=== PATIENT | male | born 1935 | race Caucasian/White ===

== ENCOUNTER 2016-12-04 07:44 | Emergency (ER) | payer MEDICARE, OTHER ==
[2016-12-04] MEDS ORDERED: ARZOL Silver Nitrate Applicator TP ONE ×2 (08:15→08:16)
--- NOTE | 2016-12-04 08:21 | ERPHSYRPT ---
- History of Present Illness Time Seen by Provider: 12/04/16 08:08 Source: patient Exam Limitations: no limitations Physician History: The patient is an 81-year-old male with his complains of bleeding from a surgical wound that was performed yesterday to remove skin from the back of his right ear. He's had numerous episodes of skin cancer and yesterday the skin was removed for biopsy for possible skin cancer. The patient is on Coumadin for DVTs and woke up this morning with blood all over his pillows. His last INR check was 1 month ago. His past medical history significant for skin cancer , diabetes, DVT, and high cholesterol. Timing/Duration: today Quality: other (bleeding) Severity: mild Location: scalp Possible Causes: other (skin biopsy) Associated Symptoms: denies symptoms Allergies/Adverse Reactions: No Known Drug Allergies Allergy (Verified 12/04/16 07:54) Home Medications: Metformin HCl 1000 mg [Glucophage 1000 MG] 1,000 mg PO BID 01/28/13 [History] Omeprazole [Prilosec] 40 mg PO DAILY PRN 11/16/13 [History] Simvastatin [Zocor] 10 mg PO HS 11/16/13 [History] Quinapril HCl 20 mg PO UD 02/08/16 [History] Quinine Sulfate 300 mg PO DAILY 02/08/16 [History] Warfarin Sodium 5 mg [Coumadin 5 MG] 6 mg PO DAILY 12/04/16 [History] Hx Tetanus, Diphtheria Vaccination/Date Given: No (PT UNSURE) Hx Influenza Vaccination/Date Given: Yes (2012) Hx Pneumococcal Vaccination/Date Given: Yes (2012) - Review of Systems Constitutional: No Fever, No Chills Eyes: No Symptoms Ears, Nose, & Throat: No Symptoms Respiratory: No Cough, No Dyspnea Cardiac: No Chest Pain, No Edema, No Syncope Abdominal/Gastrointestinal: No Abdominal Pain, No Nausea, No Vomiting, No Diarrhea Genitourinary Symptoms: No Dysuria Musculoskeletal: No Back Pain, No Neck Pain Skin: Skin Lesions Neurological: No Dizziness, No Focal Weakness, No Sensory Changes Psychological: No Symptoms Endocrine: No Symptoms Hematologic/Lymphatic: No Symptoms Immunological/Allergic: No Symptoms All Other Systems: Reviewed and Negative - Past Medical History Pertinent Past Medical History: Yes Neurological History: No Pertinent History ENT History: Cataracts Cardiac History: Deep Vein Thrombosis Respiratory History: No Pertinent History Endocrine Medical History: Diabetes Type II Musculoskeletal History: Other GI Medical History: Hernia, Ulcer History: Other Psycho-Social History: No Pertinent History Male Reproductive Disorders: Prostate Problems Other Medical History: Leg Cramps, enlarged prostate, blood clot in l leg and lung years ago, kidney stones - Past Surgical History Past Surgical History: Yes Neuro Surgical History: No Pertinent History Cardiac: CABG Respiratory: No Pertinent History Gastrointestinal: No Pertinent History Genitourinary: Other Musculoskeletal: Orthopedic Surgery Male Surgical History: No Pertinent History Other Surgical History: Removed kidney stones at the age of 23, ortho shoulder repair and numbness in right arm, turp 2012, - Social History Smoking Status: Former smoker Exposure to second hand smoke: No Drug Use: none Patient Lives Alone: No - Nursing Vital Signs Nursing Vital Signs: Initial Vital Signs Temperature 97.5 F Temperature Source Oral Pulse Rate 52 Respiratory Rate 18 Blood Pressure [Left Arm] 149/74 Pain Intensity 0 - Physical Exam General Appearance: no apparent distress, alert Eye Exam: PERRL/EOMI, eyes nml inspection Ears, Nose, Throat Exam: normal ENT inspection, pharynx normal, moist mucous membranes Neck Exam: normal inspection, non-tender, supple, full range of motion Respiratory Exam: normal breath sounds, lungs clear, No respiratory distress Cardiovascular Exam: regular rate/rhythm, normal heart sounds Gastrointestinal/Abdomen Exam: soft, mass, No tenderness Rectal Exam: not done Back Exam: normal inspection, normal range of motion, No CVA tenderness, No vertebral tenderness Extremity Exam: normal inspection, normal range of motion Neurologic Exam: alert, oriented x 3, cooperative, normal mood/affect, sensation nml, No motor deficits Skin Exam: other (skin scraping with mild hemorrhage) SpO2 Interpretation: normal Ordered Tests: Active Orders 24 hr Category Date Time Status PT INR [PROTIME WITH INR] Stat Lab 12/04/16 08:18 Completed Medication Summary Discontinued Medications Generic Name Dose Route Start Last Admin Trade Name Freq PRN Reason Stop Dose Admin Silver Nitrate 1 pkt 12/04/16 08:16 12/04/16 08:17 Arzol Silver Nitrate Applicator TP 12/04/16 08:17 1 pkt STAT ONE Administration Silver Nitrate Confirm 12/04/16 08:15 Arzol Silver Nitrate Applicator Administered 12/04/16 08:16 Dose 4 pkt TP .STK-MED ONE Lab/Rad Data: Laboratory Results 12/04/16 Range/Units 08:18 INR 2.85 (0.8-3.0) - Progress Progress: improved Progress Note: 12/04/16 08:25 There is a recent skin scraping behind his right ear that was actively bleeding slowly. 2 over nitrate sticks were used to stop the bleeding. The patient tolerated the procedure well. Counseled pt/family regarding: lab results, diagnosis - Departure Time of Disposition: 09:22 Departure Disposition: Home Clinical Impression: Hemorrhage of skin lesion Condition: Stable Critical Care Time: No Additional Instructions: The skin lesion behind your right ear was cauterized with silver nitrate to stop the bleeding. Before you go to bed tonight, carefully apply a Band-Aid over the lesion. If the bleeding recurs, do not hesitate to return to the ER for more cauterizing. Your INR was 2.85 so you are therapeutic with your Coumadin.
[2016-12-04 08:59] LABS: INR 2.85 (0.8-3.0)
[2016-12-04 09:36] VITALS: BP 123/64; PULSE 51; O2SAT 95
== END 2016-12-04 09:36 | disposition home or self-care (01) ==
LOC: ED 07:44
DX: L76.22 Postprocedural hemorrhage of skin and subcutaneous tissue following other procedure (principal); L98.8 Other specified disorders of the skin and subcutaneous tissue
CPT/HCPCS: 36415; 85610; 99283; A9270-GY

== ENCOUNTER 2017-02-08 18:40 | Emergency (ER) | payer MEDICARE, OTHER ==
--- NOTE | 2017-02-08 19:26 | ERPHSYRPT ---
- History of Present Illness Time Seen by Provider: 02/08/17 19:19 Source: patient, landscaping and groundskeeping laborer Patient Subjective Stated Complaint: pt c/o lumps/clots of blood in urine. pt states this has happened two days last week and pt seen this past and urine sample was given and a f/u appt with jim is schedule for wednesday. urine has been clear since last until about 30 minutes ago pt passed 3 lumps/clots. pt denies any pain & burning. Triage Nursing Assessment: pt is alert x 3. pt walked into the er. respirations even and unlabored, skin is pink warm and dry. Physician History: The patient is an 81-year-old male with his complaining of seeing blood and clots in his urine today. The same thing happened for 2 days last week. He saw Dr. Eastman last week and was scheduled to see him again this Wednesday. Until today his urine has been clear after the initial episode last week. He denies any burning or pain with urination. He denies dizziness or lightheadedness. He was not given any antibiotics recently. He does take Coumadin. His past medical history is significant for BP H, CABG, skin cancer, GERD, high cholesterol, and diabetes. Timing/Duration: today Activites at Onset: none Quality: other (blood in urine) Onset Location: unknown Pain Radiation: none Severity of Pain-Max: none Severity of Pain-Current: none Modifying Factors: Improves With: urinating Associated Symptoms: denies symptoms Prior abdominal problems: none Sexual intercourse history: non-contributory Allergies/Adverse Reactions: No Known Drug Allergies Allergy (Verified 12/04/16 07:54) Home Medications: Metformin HCl 1000 mg [Glucophage 1000 MG] 1,000 mg PO BID 01/28/13 [History] Omeprazole [Prilosec] 40 mg PO DAILY PRN 11/16/13 [History] Simvastatin [Zocor] 10 mg PO HS 11/16/13 [History] Quinapril HCl 20 mg PO UD 02/08/16 [History] Quinine Sulfate 300 mg PO DAILY 02/08/16 [History] Warfarin Sodium 5 mg [Coumadin 5 MG] 6 mg PO DAILY 12/04/16 [History] Hx Tetanus, Diphtheria Vaccination/Date Given: No Hx Influenza Vaccination/Date Given: No Hx Pneumococcal Vaccination/Date Given: Yes Immunizations Up to Date: Yes - Past Medical History Pertinent Past Medical History: Yes Neurological History: No Pertinent History ENT History: Cataracts Cardiac History: Deep Vein Thrombosis Respiratory History: No Pertinent History Endocrine Medical History: Diabetes Type II Musculoskeletal History: Other GI Medical History: Hernia, Ulcer History: Other Psycho-Social History: No Pertinent History Male Reproductive Disorders: Prostate Problems Other Medical History: Leg Cramps, enlarged prostate, blood clot in l leg and lung years ago, kidney stones - Past Surgical History Past Surgical History: Yes Neuro Surgical History: No Pertinent History Cardiac: CABG Respiratory: No Pertinent History Gastrointestinal: No Pertinent History Genitourinary: Other Musculoskeletal: Orthopedic Surgery Male Surgical History: No Pertinent History Other Surgical History: Removed kidney stones at the age of 23, ortho shoulder repair and numbness in right arm, turp 2012, skin cancer removed - Social History Smoking Status: Never smoker Exposure to second hand smoke: Yes Drug Use: none Patient Lives Alone: No - Review of Systems Constitutional: No Fever, No Chills Eyes: No Symptoms Ears, Nose, & Throat: No Symptoms Respiratory: No Cough, No Dyspnea Cardiac: No Chest Pain, No Edema, No Syncope Abdominal/Gastrointestinal: No Abdominal Pain, No Nausea, No Vomiting, No Diarrhea Genitourinary Symptoms: Hematuria, No Dysuria Musculoskeletal: No Back Pain, No Neck Pain Skin: No Rash Neurological: No Dizziness, No Focal Weakness, No Sensory Changes Psychological: No Symptoms Endocrine: No Symptoms Hematologic/Lymphatic: No Symptoms Immunological/Allergic: No Symptoms All Other Systems: Reviewed and Negative - Nursing Vital Signs Nursing Vital Signs: Initial Vital Signs Temperature 97.9 F 02/08/17 18:41 Pulse Rate 74 02/08/17 18:41 Respiratory Rate 20 02/08/17 18:41 Blood Pressure 140/65 02/08/17 18:41 O2 Sat by Pulse Oximetry 98 02/08/17 18:41 Pain Scale Pain Intensity 0 - Physical Exam General Appearance: no apparent distress, alert Eye Exam: PERRL/EOMI Ears, Nose, Throat Exam: pharynx normal, moist mucous membranes Neck Exam: normal inspection, supple Respiratory Exam: normal breath sounds, lungs clear Cardiovascular Exam: regular rate/rhythm, No edema Gastrointestinal/Abdomen Exam: soft, No tenderness Rectal Exam: not done Back Exam: normal inspection, No CVA tenderness Extremity Exam: normal inspection, normal range of motion, No pedal edema Neurologic Exam: alert, oriented x 3, cooperative, sensation nml, No motor deficits Skin Exam: normal color, warm, dry, No rash SpO2 Interpretation: normal SpO2: 98 Oxygen Delivery: Room Air Ordered Tests: Active Orders 24 hr Category Date Time Status BMP Stat Lab 02/08/17 19:45 Completed CBC W DIFF Stat Lab 02/08/17 19:45 Completed CULTURE,URINE Stat Lab 02/08/17 19:30 Received PROTIME WITH INR Stat Lab 02/08/17 19:45 Completed UA W/ MICROSCOPIC Stat Lab 02/08/17 19:30 Completed Lab/Rad Data: Laboratory Result Diagrams 02/08/17 19:45 02/08/17 19:45 Laboratory Results 02/08/17 02/08/17 02/08/17 Range/Units 19:45 19:45 19:45 WBC 8.6 (4.0-10.5) K/mm3 RBC 4.43 (4.1-5.6) M/mm3 Hgb 14.0 (12.5-18.0) gm/dl Hct 43.4 (42-50) % MCV 98.0 (78-100) fl MCH 31.6 (26-32) pg MCHC 32.3 (32-36) g/dl RDW 13.4 (11.5-14.0) % Plt Count 218 (150-450) K/mm3 MPV 10.5 H (6-9.5) fl Gran % 66.2 H (36.0-66.0) % Lymphocytes % 22.7 L (24.0-44.0) % Monocytes % 7.6 (0.0-12.0) % Eosinophils % 2.8 (0.00-5.0) % Basophils % 0.7 (0.0-0.4) % Basophils # 0.06 (0-0.4) INR 2.93 (0.8-3.0) Sodium 136 (136-145) mEq/L Potassium 5.3 H (3.5-5.1) mEq/L Chloride 99 (98-107) mEq/L Carbon Dioxide 29.5 (21-32) mEq/L Anion Gap 12.6 (5-15) MEQ/L BUN 27 H (9-20) mg/dL Creatinine 2.10 H (0.55-1.30) mg/dl Estimated GFR 32 ML/MIN Glucose 146 H (70-110) MG/DL Calcium 9.4 (8.5-10.1) mg/dL Ur Collection Type Urine Color (YELLOW) Urine Appearance (CLEAR) Urine pH (5-6) Ur Specific [place] (1.005-1.025) Urine Protein (Negative) Urine Ketones (NEGATIVE) Urine Blood (0-5) Vicente/ul Urine Nitrite (NEGATIVE) Urine Bilirubin (NEGATIVE) Urine Urobilinogen (0-1) mg/dL Ur Leukocyte Esterase (NEGATIVE) Urine Microscopic RBC (0-2) /HPF Urine Microscopic WBC (0-5) /HPF Ur Epithelial Cells (FEW) /HPF Urine Bacteria (NEGATIVE) /HPF Urine Glucose (NEGATIVE) mg/dL Specimen Received 02/08/17 Range/Units 19:30 WBC (4.0-10.5) K/mm3 RBC (4.1-5.6) M/mm3 Hgb (12.5-18.0) gm/dl Hct (42-50) % MCV (78-100) fl MCH (26-32) pg MCHC (32-36) g/dl RDW (11.5-14.0) % Plt Count (150-450) K/mm3 MPV (6-9.5) fl Gran % (36.0-66.0) % Lymphocytes % (24.0-44.0) % Monocytes % (0.0-12.0) % Eosinophils % (0.00-5.0) % Basophils % (0.0-0.4) % Basophils # (0-0.4) INR (0.8-3.0) Sodium (136-145) mEq/L Potassium (3.5-5.1) mEq/L Chloride (98-107) mEq/L Carbon Dioxide (21-32) mEq/L Anion Gap (5-15) MEQ/L BUN (9-20) mg/dL Creatinine (0.55-1.30) mg/dl Estimated GFR ML/MIN Glucose (70-110) MG/DL Calcium (8.5-10.1) mg/dL Ur Collection Type CLEAN CATCH Urine Color BROWN (YELLOW) Urine Appearance CLOUDY (CLEAR) Urine pH 5.0 (5-6) Ur Specific [place] 1.020 (1.005-1.025) Urine Protein 100 (Negative) Urine Ketones NEGATIVE (NEGATIVE) Urine Blood 250 (0-5) Vicente/ul Urine Nitrite NEGATIVE (NEGATIVE) Urine Bilirubin NEGATIVE (NEGATIVE) Urine Urobilinogen NORMAL (0-1) mg/dL Ur Leukocyte Esterase TRACE (NEGATIVE) Urine Microscopic RBC >100 (0-2) /HPF Urine Microscopic WBC 0-2 (0-5) /HPF Ur Epithelial Cells RARE (FEW) /HPF Urine Bacteria FEW (NEGATIVE) /HPF Urine Glucose NEGATIVE (NEGATIVE) mg/dL Specimen Received [id number] - Departure Time of Disposition: 21:01 Departure Disposition: Home Clinical Impression: Hematuria due to acute cystitis, Hyperkalemia, Renal failure Condition: Stable Critical Care Time: No Additional Instructions: You have blood in your urine that is likely caused by a bacterial infection. Take cephalexin 500 mg 4 times a day for 10 days. You were given one tablet of cephalexin 500 mg in the ER. You also have renal failure and mildly elevated serum potassium. Follow up tomorrow with your local physician to recheck your potassium level. Prescriptions: Cephalexin 500 mg PO QID #40 tablet
[2017-02-08 19:54] LABS: BASOPHIL % 0.7 % (0.0-0.4); Eosinophil % 2.8 % (0.00-5.0); Granulocytes % 66.2 % (36.0-66.0); Lymphocytes % 22.7 % (24.0-44.0); Mean Corpuscular Hemoglobin 31.6 pg (26-32); Mean Platelet Volume 10.5 fl (6-9.5); Monocytes % 7.6 % (0.0-12.0); Platelet Count 218 K/mm3 (150-450); Red Blood Count 4.43 M/mm3 (4.1-5.6); Red Cell Distribution Width 13.4 % (11.5-14.0); White Blood Count 8.6 K/mm3 (4.0-10.5)
[2017-02-08 20:11] LABS: ANION GAP 12.6 MEQ/L (5-15); Carbon Dioxide 29.5 mEq/L (21-32); Potassium 5.3 mEq/L (3.5-5.1)
[2017-02-08 20:15] LABS: INR 2.93 (0.8-3.0); PROTIME 33.5 SECONDS (8.83-12.87)
[2017-02-08 20:43] LABS: Collection Type CLEAN CATCH
[2017-02-08 20:44] LABS: Bilirubin NEGATIVE (NEGATIVE); Blood 250 Ery/ul (0-5); COMPLETE URINE MICROSCOPIC? YES; Glucose NEGATIVE (NEGATIVE); Leukocyte Esterase TRACE (NEGATIVE)
[2017-02-08 20:45] LABS: ADD URINE CULTURE? YES (NO); Bacteria FEW /HPF (NEGATIVE); Epithelial Cells RARE /HPF (FEW); WBC 0-2 /HPF (0-5)
[2017-02-08] MEDS ORDERED: KEFLEX 500 MG PO ONE (21:09)
[2017-02-08] MEDS ORDERED: KEFLEX 500 MG ONE (21:13)
[2017-02-08 21:26] VITALS: BP 123/71; PULSE 88; O2SAT 97
== END 2017-02-08 21:26 | disposition home or self-care (01) ==
LOC: ED 18:40
DX: R31.9 Hematuria, unspecified (principal); N30.00 Acute cystitis without hematuria; E87.5 Hyperkalemia; N19 Unspecified kidney failure; Z79.01 Long term (current) use of anticoagulants; E11.9 Type 2 diabetes mellitus without complications; E78.00 Pure hypercholesterolemia, unspecified; Z95.1 Presence of aortocoronary bypass graft; K21.9 Gastro-esophageal reflux disease without esophagitis; Z79.899 Other long term (current) drug therapy; Z79.84 Long term (current) use of oral hypoglycemic drugs
CPT/HCPCS: 36415; 80048; 81000; 85025; 85610; 87086; 99282; A9270-GY

== ENCOUNTER 2017-09-26 11:37 | Emergency (ER) | payer MEDICARE, OTHER ==
[2017-09-26 12:33] LABS: Lactic Acid 4.3 (0.4-2.0)
[2017-09-26 12:34] LABS: BASOPHIL % 0.6 % (0.0-0.4); Basophil (Absolute #) 0.05 (0-0.4); Eosinophil % 2.5 % (0.00-5.0); Eosinophil (Absolute #) 0.23 (0-0.5); Granulocyte Absolute (ANC) 6.84 (1.4-6.9); Granulocytes % 75.5 % (36.0-66.0); Hematocrit 41.2 % (42-50); Hemoglobin 13.4 gm/dl (12.5-18.0); Lymphocyte (Absolute #) 1.48 (1.0-4.6); Lymphocytes % 16.3 % (24.0-44.0); Mean Cell Volume 97.6 fl (78-100); Mean Corpuscular Hemoglobin 31.8 pg (26-32); Mean Corpuscular Hgb Concent. 32.5 g/dl (32-36); Mean Platelet Volume 11.4 fl (6-9.5); Monocyte (Absolute #) 0.46 (0.0-1.3); Monocytes % 5.1 % (0.0-12.0); Platelet Count 225 K/mm3 (150-450); Red Blood Count 4.22 M/mm3 (4.1-5.6); Red Cell Distribution Width 13.2 % (11.5-14.0); White Blood Count 9.1 K/mm3 (4.0-10.5)
[2017-09-26] MEDS ORDERED: ROCEPHIN 1 Gm-D5w 50 ml Bag** 1 G/50 ML IVPB IV STA (12:48)
[2017-09-26] MEDS ORDERED: Sodium Chloride 0.9% 1000 ML 1,000 ML IV STA ×2 (12:48→14:12)
[2017-09-26 12:51] LABS: INR 2.72 (0.8-3.0)
--- NOTE | 2017-09-26 12:52 | ERPHSYRPT ---
- History of Present Illness Time Seen by Provider: 09/26/17 11:42 Source: patient, family () Patient Subjective Stated Complaint: pt here for blood in urine for 3 days, and weakness today Triage Nursing Assessment: pt alert, resp easy, walked in, abd soft, has gross amt of blood in urine Physician History: CC: weakness HX: 82 y/o patient on coumadin. He has blood in urine worse since Wednesday. Remote hx of kidney stones but he has no pain. He has no fever or chills. Takes metformin. He always has some diff starting urinary stream. He had prior UTI. No N/V. Feels weak all over. Denies dyspnea. No other bleeding. Timing/Duration: day(s) (3) Severity: moderate Allergies/Adverse Reactions: No Known Drug Allergies Allergy (Verified 09/26/17 11:55) Home Medications: Metformin HCl 1000 mg [Glucophage 1000 MG] 1,000 mg PO BID 01/28/13 [History] Simvastatin [Zocor] 20 mg PO HS 11/16/13 [History] Quinine Sulfate 300 mg PO DAILY 02/08/16 [History] Warfarin Sodium 5 mg [Coumadin 5 MG] 2 mg PO DAILY 12/04/16 [History] Hx Tetanus, Diphtheria Vaccination/Date Given: No Hx Influenza Vaccination/Date Given: No Hx Pneumococcal Vaccination/Date Given: Yes Immunizations Up to Date: Yes - Review of Systems Constitutional: Fatigue, Malaise, Weakness, No Fever, No Chills Eyes: No Symptoms Ears, Nose, & Throat: No Symptoms Respiratory: No Cough, No Dyspnea Cardiac: No Chest Pain Abdominal/Gastrointestinal: No Abdominal Pain, No Nausea, No Vomiting Genitourinary Symptoms: Dysuria, Frequency, Hesitancy, No Incontinence, No Urinary Retention, No Flank Pain, No Testicle Pain, No Penile Discharge Musculoskeletal: No Back Pain Skin: No Rash Neurological: No Headache All Other Systems: Reviewed and Negative - Past Medical History Pertinent Past Medical History: Yes Neurological History: No Pertinent History ENT History: Cataracts Cardiac History: Deep Vein Thrombosis Respiratory History: No Pertinent History Endocrine Medical History: Diabetes Type II Musculoskeletal History: Other GI Medical History: Hernia, Ulcer History: Other Psycho-Social History: No Pertinent History Male Reproductive Disorders: Prostate Problems Other Medical History: Leg Cramps, enlarged prostate, blood clot in l leg and lung years ago, kidney stones - Past Surgical History Past Surgical History: Yes Neuro Surgical History: No Pertinent History Cardiac: CABG Respiratory: No Pertinent History Gastrointestinal: No Pertinent History Genitourinary: Other Musculoskeletal: Orthopedic Surgery Male Surgical History: No Pertinent History Other Surgical History: Removed kidney stones at the age of 23, ortho shoulder repair and numbness in right arm, turp 2012, skin cancer removed - Social History Smoking Status: Never smoker Exposure to second hand smoke: No Drug Use: none Patient Lives Alone: No - Nursing Vital Signs Nursing Vital Signs: Initial Vital Signs Temperature 97.7 F 09/26/17 12:02 Pulse Rate 63 09/26/17 12:02 Respiratory Rate 16 09/26/17 12:02 Blood Pressure 125/66 09/26/17 12:02 O2 Sat by Pulse Oximetry 94 L 09/26/17 12:02 Pain Scale Pain Intensity 0 - Physical Exam General Appearance: alert Eye Exam: PERRL/EOMI Ears, Nose, Throat Exam: normal ENT inspection, moist mucous membranes Neck Exam: normal inspection, non-tender, supple Respiratory Exam: normal breath sounds Cardiovascular Exam: regular rate/rhythm Gastrointestinal/Abdomen Exam: soft, No tenderness, No distention, No mass, No guarding Male Genitalia Exam: normal genitalia Extremity Exam: normal inspection, normal range of motion Neurologic Exam: alert, oriented x 3, cooperative, tile sprayer II-XII nml as tested, sensation nml, No motor deficits Skin Exam: warm, dry, No rash SpO2 Interpretation: normal SpO2: 94 Oxygen Delivery: Room Air Procedures - Additional Procedures Progress: Limited transabdominal sono per ERMD shows post void residual bladder volume 299ml and no significant kidney hydronephrosis. - Course Nursing assessment & vital signs reviewed: Yes EKG Interpreted by Me: RATE (55), A-fib, NORMAL INTERVALS (QTc 440), Right Bundle Branch Block - Radiology Exams cxr X-ray Interpretation: Reviewed by me (pleural effusion, CM, post sternotomy, atelectasis, ) - CT Exams abd/pelvis CT Interpretation: Tele-radiologist Report (2.1 cm nodule in the right posterior costophrenic angle pleural fluid collection. Multiple clots in bladder. Kidneys and ureters unremarkable. Enlarged prostate. ) Ordered Tests: Active Orders 24 hr Category Date Time Status Clean Catch Urine Specimen STAT Care 09/26/17 11:54 Active EKG-ER Only STAT Care 09/26/17 12:46 Active IV Insertion STAT Care 09/26/17 12:01 Active Rectal Temperature STAT Care 09/26/17 12:47 Active ABDOMEN AND PELVIS W/0 CONTRAS [CT] Stat Exams 09/26/17 14:12 Taken CHEST 2 VIEWS (PA AND LAT) Stat Exams 09/26/17 12:46 Taken BLOOD CULTURE Stat Lab 09/26/17 13:00 Received CBC W DIFF Stat Lab 09/26/17 12:16 Completed CMP Stat Lab 09/26/17 12:16 Completed CULTURE,URINE Stat Lab 09/26/17 12:00 Received Lactic Acid Stat Lab 09/26/17 12:25 Completed Lactic Acid Stat Lab 09/26/17 14:32 Results PROTIME WITH INR Stat Lab 09/26/17 12:16 Completed UA W/ MICROSCOPIC Stat Lab 09/26/17 12:00 Completed VENOUS BLOOD GAS Urgent Lab 09/26/17 14:25 Completed Medication Summary Discontinued Medications Generic Name Dose Route Start Last Admin Trade Name Julio Cq PRN Reason Stop Dose Admin Sodium Chloride 1,000 mls @ 999 mls/hr 09/26/17 12:48 09/26/17 13:04 Sodium Chloride 0.9% 1000 Ml IV 09/26/17 13:48 999 mls/hr .Q1H1M STA Administration Ceftriaxone Sodium/Dextrose 1 g in 50 mls @ 100 mls/hr 09/26/17 12:48 13:03 Rocephin 1 Gm-D5w 50 Ml Bag IV 09/26/17 13:17 100 mls/hr STAT STA Administration Sodium Chloride Confirm 09/26/17 12:58 Sodium Chloride 0.9% 1000 Ml Administered 09/26/17 12:59 Dose 1,000 mls @ ud .ROUTE .STK-MED ONE Ceftriaxone Sodium/Dextrose Confirm 09/26/17 12:58 Rocephin 1 Gm-D5w 50 Ml Bag Administered 09/26/17 12:59 Dose 1 g in 50 mls @ ud IV .STK-MED ONE Sodium Chloride 1,000 mls @ 999 mls/hr 09/26/17 14:12 09/26/17 14:22 Sodium Chloride 0.9% 1000 Ml IV 09/26/17 15:12 999 mls/hr .Q1H1M STA Administration Sodium Chloride Confirm 09/26/17 14:14 Sodium Chloride 0.9% 1000 Ml Administered 09/26/17 14:15 Dose 1,000 mls @ ud .ROUTE .[facility]-MED ONE Lab/Rad Data: Laboratory Result Diagrams 09/26/17 12:16 09/26/17 12:16 Laboratory Results 09/26/17 09/26/17 09/26/17 Range/Units 14:32 14:25 12:25 WBC (4.0-10.5) K/mm3 RBC (4.1-5.6) M/mm3 Hgb (12.5-18.0) gm/dl Hct (42-50) % MCV (78-100) fl MCH (26-32) pg MCHC (32-36) g/dl RDW (11.5-14.0) % Plt Count (150-450) K/mm3 MPV (6-9.5) fl Gran % (36.0-66.0) % Lymphocytes % (24.0-44.0) % Monocytes % (0.0-12.0) % Eosinophils % (0.00-5.0) % Basophils % (0.0-0.4) % Basophils # (0-0.4) INR (0.8-3.0) VBG pH 7.34 (7.32-7.42) VBG pCO2 at Pat Temp 47 (42-55) mm/Hg VBG pO2 at Pat Temp 20 L (25-40) mm/Hg VBG HCO3 25.4 (22-28) meq/L VBG O2 Sat (Joseph) 37.0 L (95-100) VBG Base Excess -0.8 (-2.0-2.0) VBG Hemoglobin 12.3 VBG Carboxyhemoglobin 1.7 (0.0-6.9) % T HGB POC Potassium 4.4 (3.5-5.1) Sodium (137-145) mmol/L Potassium (3.5-5.1) mmol/L Chloride (98-107) mmol/L Carbon Dioxide (22-30) mmol/L Anion Gap (5-15) MEQ/L BUN (9-20) mg/dL Creatinine (0.66-1.25) mg/dL Estimated GFR ML/MIN Glucose (74-106) mg/dL Lactic Acid 2.2 H 4.3 H (0.4-2.0) Calcium (8.4-10.2) mg/dL Total Bilirubin (0.2-1.3) mg/dL AST (17-59) U/L ALT (0-50) U/L Alkaline Phosphatase (38-126) U/L Serum Total Protein (6.3-8.2) g/dL Albumin (3.5-5.0) g/dL Ur Collection Type Urine Color (YELLOW) Urine Appearance (CLEAR) Urine pH (5-6) Ur Specific [facility] (1.005-1.025) Urine Protein (Negative) Urine Ketones (NEGATIVE) Urine Blood (0-5) Vicente/ul Urine Nitrite (NEGATIVE) Urine Bilirubin (NEGATIVE) Urine Urobilinogen (0-1) mg/dL Ur Leukocyte Esterase (NEGATIVE) Urine Microscopic RBC (0-2) /HPF Urine Microscopic WBC (0-5) /HPF Ur Epithelial Cells (FEW) /HPF Urine Bacteria (NEGATIVE) /HPF Urine Culture Reflexed (NO) Urine Glucose (NEGATIVE) mg/dL Specimen Received ABO Group Rh Factor Antibody Screen (NEGATIVE) 09/26/17 09/26/17 09/26/17 Range/Units 12:16 12:16 12:16 WBC 9.1 (4.0-10.5) K/mm3 RBC 4.22 (4.1-5.6) M/mm3 Hgb 13.4 (12.5-18.0) gm/dl Hct 41.2 L (42-50) % MCV 97.6 (78-100) fl MCH 31.8 (26-32) pg MCHC 32.5 (32-36) g/dl RDW 13.2 (11.5-14.0) % Plt Count 225 (150-450) K/mm3 MPV 11.4 H (6-9.5) fl Gran % 75.5 H (36.0-66.0) % Lymphocytes % 16.3 L (24.0-44.0) % Monocytes % 5.1 (0.0-12.0) % Eosinophils % 2.5 (0.00-5.0) % Basophils % 0.6 (0.0-0.4) % Basophils # 0.05 (0-0.4) INR 2.72 (0.8-3.0) VBG pH (7.32-7.42) VBG pCO2 at Pat Temp (42-55) mm/Hg VBG pO2 at Pat Temp (25-40) mm/Hg VBG HCO3 (22-28) meq/L VBG O2 Sat (Joseph) (95-100) VBG Base Excess (-2.0-2.0) VBG Hemoglobin VBG Carboxyhemoglobin (0.0-6.9) % T HGB POC Potassium (3.5-5.1) Sodium 139 (137-145) mmol/L Potassium 4.7 (3.5-5.1) mmol/L Chloride 101 (98-107) mmol/L Carbon Dioxide 24 (22-30) mmol/L Anion Gap 19.1 H (5-15) MEQ/L BUN 16 (9-20) mg/dL Creatinine 1.56 H (0.66-1.25) mg/dL Estimated GFR 46 ML/MIN Glucose 303 H (74-106) mg/dL Lactic Acid (0.4-2.0) Calcium 9.5 (8.4-10.2) mg/dL Total Bilirubin 0.50 (0.2-1.3) mg/dL AST 25 (17-59) U/L ALT 26 (0-50) U/L Alkaline Phosphatase 63 (38-126) U/L Serum Total Protein 6.9 (6.3-8.2) g/dL Albumin 4.1 (3.5-5.0) g/dL Ur Collection Type Urine Color (YELLOW) Urine Appearance (CLEAR) Urine pH (5-6) Ur Specific [facility] (1.005-1.025) Urine Protein (Negative) Urine Ketones (NEGATIVE) Urine Blood (0-5) Vicente/ul Urine Nitrite (NEGATIVE) Urine Bilirubin (NEGATIVE) Urine Urobilinogen (0-1) mg/dL Ur Leukocyte Esterase (NEGATIVE) Urine Microscopic RBC (0-2) /HPF Urine Microscopic WBC (0-5) /HPF Ur Epithelial Cells (FEW) /HPF Urine Bacteria (NEGATIVE) /HPF Urine Culture Reflexed (NO) Urine Glucose (NEGATIVE) mg/dL Specimen Received ABO Group Rh Factor Antibody Screen (NEGATIVE) 09/26/17 09/26/17 Range/Units 12:08 12:00 WBC (4.0-10.5) K/mm3 RBC (4.1-5.6) M/mm3 Hgb (12.5-18.0) gm/dl Hct (42-50) % MCV (78-100) fl MCH (26-32) pg MCHC (32-36) g/dl RDW (11.5-14.0) % Plt Count (150-450) K/mm3 MPV (6-9.5) fl Gran % (36.0-66.0) % Lymphocytes % (24.0-44.0) % Monocytes % (0.0-12.0) % Eosinophils % (0.00-5.0) % Basophils % (0.0-0.4) % Basophils # (0-0.4) INR (0.8-3.0) VBG pH (7.32-7.42) VBG pCO2 at Pat Temp (42-55) mm/Hg VBG pO2 at Pat Temp (25-40) mm/Hg VBG HCO3 (22-28) meq/L VBG O2 Sat (Joseph) (95-100) VBG Base Excess (-2.0-2.0) VBG Hemoglobin VBG Carboxyhemoglobin (0.0-6.9) % T HGB POC Potassium (3.5-5.1) Sodium (137-145) mmol/L Potassium (3.5-5.1) mmol/L Chloride (98-107) mmol/L Carbon Dioxide (22-30) mmol/L Anion Gap (5-15) MEQ/L BUN (9-20) mg/dL Creatinine (0.66-1.25) mg/dL Estimated GFR ML/MIN Glucose (74-106) mg/dL Lactic Acid (0.4-2.0) Calcium (8.4-10.2) mg/dL Total Bilirubin (0.2-1.3) mg/dL AST (17-59) U/L ALT (0-50) U/L Alkaline Phosphatase (38-126) U/L Serum Total Protein (6.3-8.2) g/dL Albumin (3.5-5.0) g/dL Ur Collection Type VOID Urine Color RED (YELLOW) Urine Appearance CLOUDY (CLEAR) Urine pH 5.0 (5-6) Ur Specific [facility] 1.015 (1.005-1.025) Urine Protein 300 (Negative) Urine Ketones TRACE (NEGATIVE) Urine Blood 250 (0-5) Vicente/ul Urine Nitrite COLOR INTERFERENCE (NEGATIVE) Urine Bilirubin NEGATIVE (NEGATIVE) Urine Urobilinogen NORMAL (0-1) mg/dL Ur Leukocyte Esterase COLOR INTERFERENCE (NEGATIVE) Urine Microscopic RBC >100 (0-2) /HPF Urine Microscopic WBC 10-15 (0-5) /HPF Ur Epithelial Cells FEW (FEW) /HPF Urine Bacteria MODERATE (NEGATIVE) /HPF Urine Culture Reflexed YES (NO) Urine Glucose 250 (NEGATIVE) mg/dL Specimen Received 09/26/2017 1250 ABO Group A Rh Factor NEGATIVE Antibody Screen NEGATIVE (NEGATIVE) - Progress Progress Note: 09/26/17 15:31 He feels much better after IVF. Ambulated well. Has urinated here. He wants to go home and appears stable. Called Dr Francisco Campos who knows pt well and will release home to obtain urology follow up tomorrow. Instr given to pt and daughter. Elevated lactic acid improved. Likely related to metformin and will be followed by Dr Campos. Counseled pt/family regarding: lab results, diagnosis, need for follow-up, rad results - Departure Time of Disposition: 15:32 Departure Disposition: Home Clinical Impression: Gross hematuria, Warfarin anticoagulation, Elevated lactic acid level Condition: Stable Critical Care Time: No Referrals: PO ACMPOS [Primary Care Provider] - Instructions: Blood in the Urine (Hematuria) in Adults Additional Instructions: Hold warfarin today and tomorrow. Dr Campos will call you with a urology appointment tomorrow AM. Call his office after noon if you have not heard from them. Rx keflex to start in AM. You need to have your bladder and lung nodule checked. Follow up this week with Dr Campos regarding your sugars. Prescriptions: Cephalexin Mh 500 mg [Keflex 500 mg] 1 cap PO QID #28 capsule
[2017-09-26 12:56] LABS: ALBUMIN 4.1 g/dL (3.5-5.0); ANION GAP 19.1 MEQ/L (5-15); BILIRUBIN,TOTAL 0.5 mg/dL (0.2-1.3); Calcium 9.5 mg/dL (8.4-10.2); Creatinine 1 1.56 mg/dL (0.66-1.25); Potassium 4.7 mmol/L (3.5-5.1); Total Protein 6.9 g/dL (6.3-8.2)
[2017-09-26] MEDS ORDERED: ROCEPHIN 1 Gm-D5w 50 ml Bag** 1 G/50 ML IVPB IV ONE (12:58)
[2017-09-26] MEDS ORDERED: Sodium Chloride 0.9% 1000 ML 1,000 ML ONE ×2 (12:58→14:14)
[2017-09-26 13:07] LABS: Appearance CLOUDY (CLEAR)
[2017-09-26 13:20] LABS: Leukocyte Esterase COLOR INTERFERENCE (NEGATIVE); Nitrite COLOR INTERFERENCE (NEGATIVE); Protein,Urine Dip 300 (Negative); Specific Gravity 1.015 (1.005-1.025)
[2017-09-26 13:21] LABS: Bilirubin NEGATIVE (NEGATIVE); Blood 250 Ery/ul (0-5); Glucose 250 mg/dL (NEGATIVE); Ketones TRACE (NEGATIVE); Urobilinogen NORMAL mg/dL (0-1)
[2017-09-26 13:24] LABS: Bacteria MODERATE /HPF (NEGATIVE); Epithelial Cells FEW /HPF (FEW)
[2017-09-26 13:30] LABS: ABO TYPING A; Antibody Screen NEGATIVE (NEGATIVE); RH TYPING NEGATIVE
[2017-09-26 14:27] LABS: VBG BASE EXCESS -0.8 (-2.0-2.0); VBG CARBOXYHEMOGLOBIN 1.7 % T HGB (0.0-6.9); VBG HCO3- 25.4 meq/L (22-28); VBG HEMOGLOBIN 12.3; VBG POTASSIUM 4.4 (3.5-5.1); VBG pH 7.34 (7.32-7.42)
[2017-09-26 14:36] LABS: Lactic Acid 2.2 (0.4-2.0)
[2017-09-26 15:35] VITALS: O2SAT 94
[2017-09-26 15:41] VITALS: BP 132/65; PULSE 58
--- NOTE | 2017-09-26 17:04 | XRAY ---
Indication: Hematuria. History kidney stones. Multiple contiguous axial images obtained through the abdomen and pelvis without contrast as ordered. Comparison: Contrast exam January 29, 2013. Lung bases demonstrate new small right effusion. Also bibasilar compressive atelectasis, right greater than left and scattered fibrosis/scarring. Heart is not enlarged. Noncontrasted stomach and bowel loops appear nonobstructed. Again scattered descending/sigmoid diverticulosis without diverticulitis. Normal appendix. No free fluid/air. Urinary bladder now demonstrates abnormal intraluminal noncalcified densities concerning for mass versus blood clots. No calcifications/calculi. Again enlarged prostate gland impresses on the base of the bladder. New IVC filter in situ. Remaining liver, gallbladder, pancreas, spleen, adrenal glands, kidneys, and ureters appear unremarkable for noncontrast exam. There remains mild aortoiliac calcifications without AAA. Osseous structures demonstrate mild multilevel degenerative spondylosis again greatest at the lumbosacral junction. Progressive worsening L1 compression deformity with near complete collapse. Stable small bilateral fatty inguinal hernias. Impression: 1. New abnormal urinary bladder intraluminal densities. Rule out mass versus blood clots. 2. Stable colonic diverticulosis, enlarged prostate gland, and bilateral fatty inguinal hernias. 3. New right lung base effusion and bibasilar atelectasis. Comment: Preliminary interpretation was made by [facility]. No critical discrepancy. CTDI 23.13
--- NOTE | 2017-09-26 17:07 | XRAY ---
Indication: Sepsis. Comparison: September 24, 2014. PA/lateral chest unchanged again demonstrating small bibasilar effusions with adjacent infiltrates/atelectasis again right greater than left. Upper lungs clear. Heart is not enlarged. Bony thorax intact again with mild osteopenia, degenerative changes, remote L1 compression fracture, and sternotomy wires.
== END 2017-09-26 15:42 | disposition home or self-care (01) ==
LOC: ED 11:37
DX: R31.9 Hematuria, unspecified (principal); R53.1 Weakness; R74.0 Nonspecific elevation of levels of transaminase and lactic acid dehydrogenase [LDH]; Z79.01 Long term (current) use of anticoagulants; I48.91 Unspecified atrial fibrillation; I45.10 Unspecified right bundle-branch block; J90 Pleural effusion, not elsewhere classified; E11.9 Type 2 diabetes mellitus without complications; Z79.84 Long term (current) use of oral hypoglycemic drugs
CPT/HCPCS: 36000; 36415; 71046; 74176; 80053; 81000; 82805; 83605; 85025; 85610; 86850; 86900; 86901; 87040; 87086; 93005; 96360; 96361; 96365; 99284; J0696

== ENCOUNTER 2020-12-26 17:12 | Inpatient (IN) | payer MEDICARE, OTHER ==
[2020-12-26 17:51] LABS: Absolute Neutrophil Ct (ANC) 5.78 (1.4-6.9); BASOPHIL % 0.5 % (0.0-0.4); Basophil (Absolute #) 0.04 (0-0.4); Eosinophil % 4.5 % (0.00-5.0); Eosinophil (Absolute #) 0.37 (0-0.5); Hematocrit 36.7 % (42-50); Hemoglobin 11.3 gm/dl (12.5-18.0); Lymphocyte (Absolute #) 1.33 (1.0-4.6); Lymphocytes % 16.2 % (24.0-44.0); Mean Cell Volume 103.7 fl (78-100); Mean Corpuscular Hemoglobin 31.9 pg (26-32); Mean Corpuscular Hgb Concent. 30.8 g/dl (32-36); Mean Platelet Volume 9.7 fl (7.5-11.0); Monocyte (Absolute #) 0.68 (0.0-1.3); Monocytes % 8.3 % (0.0-12.0); Neutrophil % 70.5 % (36.0-66.0); Platelet Count 244 K/mm3 (150-450); Red Blood Count 3.54 M/mm3 (4.1-5.6); Red Cell Distribution Width 12.7 % (11.5-14.0); White Blood Count 8.2 K/mm3 (4.0-10.5)
[2020-12-26 18:08] LABS: INR 2.44 (0.8-3.0); PROTIME 28.8 SECONDS (9.4-12.5)
[2020-12-26 18:11] LABS: PTT 55.6 SECONDS (25.1-36.5)
[2020-12-26] MEDS ORDERED: Sodium Chloride 0.9% 1000 ML 1,000 ML ONE ×2 (18:16→21:10)
[2020-12-26] MEDS: Sodium Chloride 0.9% 1000 ML 1,000 ML IV SCH ×2 (18:17→21:15)
--- NOTE | 2020-12-26 19:05 | ERPHSYRPT ---
- History of Present Illness Time Seen by Provider: 12/26/20 17:30 Source: patient Exam Limitations: no limitations Patient Subjective Stated Complaint: pt here for abnormal labs, hes BUN and CREAT are elevated, pt denies any problems Triage Nursing Assessment: pt alert, resp easy, walked in, face mask in place, skin w/d/p. abd soft Physician History: Patient is 85-year-old male presents to our ED for evaluation of abnormal BUN/creatinine. Patient otherwise asymptomatic. Patient was obtaining routine labs for assessment of INR as patient is currently on Coumadin. Laboratory work-up revealed increased BUN and creatinine. Patient otherwise asymptomatic. Timing/Duration: today Severity: mild Modifying Factors: Improves With: nothing Associated Symptoms: denies symptoms Allergies/Adverse Reactions: No Known Drug Allergies Allergy (Verified 12/26/20 17:24) Home Medications: Metformin HCl 1000 mg [Glucophage 1000 MG] 1,000 mg PO BID 01/28/13 [History] Atorvastatin Calcium 20 mg PO QPM 07/28/18 [History] Finasteride 5 mg [Proscar 5 MG] 5 mg PO DAILY 07/28/18 [History] Furosemide 40 mg [Lasix 40 MG] 40 mg PO QAM 07/28/18 [History] Glipizide 5 mg [Glucotrol 5 MG] 2.5 mg PO QAM PRN 07/28/18 [History] Warfarin Sodium 2 mg [Coumadin 2 MG] 5 mg PO QPM 07/28/18 [History] quiNINE sulfate [Quinine Sulfate] 600 mg PO HS 07/28/18 [History] Warfarin Sodium 3 mg PO MO 02/27/20 [History] Hx Tetanus, Diphtheria Vaccination/Date Given: No Hx Influenza Vaccination/Date Given: Yes Hx Pneumococcal Vaccination/Date Given: Yes Immunizations Up to Date: No Travel Risk - International Travel Have you traveled outside of the country in past 3 weeks: No - Coronavirus Screening Are you exhibiting any of the following symptoms?: No Close contact with a COVID-19 positive Pt in past 14-21 Days: No - Vaccine Status Have you recieved a Covid-19 vaccination: Yes Dairy Helper: Moderna - Vaccination Dates Date of 2cond Vaccination (if applicable): november - Review of Systems Constitutional: No Symptoms, No Fever, No Chills Eyes: No Symptoms Ears, Nose, & Throat: No Symptoms Respiratory: No Symptoms, No Cough, No Dyspnea Cardiac: No Symptoms, No Chest Pain, No Edema, No Syncope Abdominal/Gastrointestinal: No Symptoms, No Abdominal Pain, No Nausea, No Vomiting, No Diarrhea Genitourinary Symptoms: No Symptoms, No Dysuria Musculoskeletal: No Symptoms, No Back Pain, No Neck Pain Skin: No Symptoms, No Rash Neurological: No Symptoms, No Dizziness, No Focal Weakness, No Sensory Changes Psychological: No Symptoms Endocrine: No Symptoms Hematologic/Lymphatic: No Symptoms Immunological/Allergic: No Symptoms All Other Systems: Reviewed and Negative - Past Medical History Pertinent Past Medical History: Yes Neurological History: No Pertinent History ENT History: Cataracts Cardiac History: Coronary Artery Disease, Deep Vein Thrombosis Respiratory History: No Pertinent History Endocrine Medical History: Diabetes Type II Musculoskeletal History: Other GI Medical History: Hernia, Ulcer History: Other Psycho-Social History: No Pertinent History Male Reproductive Disorders: Prostate Problems Other Medical History: Leg Cramps, enlarged prostate, blood clot in l leg and lung years ago, kidney stones - Past Surgical History Past Surgical History: Yes Neuro Surgical History: No Pertinent History Cardiac: CABG Respiratory: No Pertinent History Gastrointestinal: No Pertinent History Genitourinary: Other Musculoskeletal: Orthopedic Surgery Male Surgical History: No Pertinent History Other Surgical History: Removed kidney stones at the age of 23, ortho shoulder repair and numbness in right arm, turp 2012, skin cancer removed - Social History Smoking Status: Former smoker Exposure to second hand smoke: No Drug Use: none Patient Lives Alone: No - Nursing Vital Signs Nursing Vital Signs: Initial Vital Signs Temperature 98.4 F 12/26/20 17:17 Pulse Rate 80 12/26/20 17:17 Respiratory Rate 14 12/26/20 17:17 Blood Pressure 164/52 12/26/20 17:17 O2 Sat by Pulse Oximetry 94 L 12/26/20 17:17 Pain Scale Pain Intensity 0 - Physical Exam General Appearance: no apparent distress, alert Eye Exam: PERRL/EOMI, eyes nml inspection Ears, Nose, Throat Exam: normal ENT inspection, TMs normal, pharynx normal, moist mucous membranes Neck Exam: normal inspection, non-tender, supple, full range of motion Respiratory Exam: normal breath sounds, lungs clear, No respiratory distress Cardiovascular Exam: regular rate/rhythm, normal heart sounds, normal peripheral pulses Gastrointestinal/Abdomen Exam: soft, normal bowel sounds, No tenderness, No mass Back Exam: normal inspection, normal range of motion, No CVA tenderness, No vertebral tenderness Extremity Exam: normal inspection, normal range of motion, pelvis stable Neurologic Exam: alert, oriented x 3, cooperative, normal mood/affect, nml cerebellar function, sensation nml, No motor deficits Skin Exam: normal color, warm, dry, No rash Lymphatic Exam: No adenopathy SpO2 Interpretation: normal SpO2: 96 O2 Delivery: Room Air - Course Nursing assessment & vital signs reviewed: Yes - CT Exams Abdomen/Pelvis CT Interpretation: Tele-radiologist Report (Negative renal stone or obstructive uropathy. No Ross stable right small effusion. Bibasilar atelectasis and diverticulosis. Remaining abdomen pelvis negative.) Ordered Tests: Active Orders 24 hr Category Date Time Status Traffic Signal Mechanic STAT Care 12/26/20 17:25 Active IV Insertion STAT Care 12/26/20 17:24 Active Pulse Oximetry (ED) STAT Care 12/26/20 17:24 Active ABDOMEN AND PELVIS W/0 CONTRAS [CT] Stat Exams 12/26/20 19:33 Taken CBC W DIFF Stat Lab 12/26/20 17:44 Completed CMP Stat Lab 12/26/20 17:44 Completed CULTURE,URINE Stat Lab 12/26/20 19:23 Received PROTIME WITH INR Stat Lab 12/26/20 17:44 Completed PTT Stat Lab 12/26/20 17:44 Completed UA W/RFX UR CULTURE Stat Lab 12/26/20 19:23 Completed Medication Summary Generic Name Dose Route Start Last Admin Trade Name Freq PRN Reason Stop Dose Admin Sodium Chloride 1,000 mls @ 100 mls/hr 12/26/20 17:30 12/26/20 22:31 Sodium Chloride 0.9% 1000 Ml IV 01/25/21 17:29 Infused .Q10H GABE Infusion Sodium Chloride 1,000 mls @ 125 mls/hr 12/26/20 21:15 12/26/20 21:20 Sodium Chloride 0.9% 1000 Ml IV 01/25/21 21:14 125 mls/hr .Q8H GABE Administration Discontinued Medications Generic Name Dose Route Start Last Admin Trade Name Freq PRN Reason Stop Dose Admin Ceftriaxone Sodium/Dextrose 1 g in 50 mls @ 100 mls/hr 12/26/20 21:08 12/26/20 22:30 Rocephin 1 Gm-D5w 50 Ml Bag IV 12/26/20 21:37 Infused STAT STA Infusion Ceftriaxone Sodium/Dextrose Confirm 12/26/20 21:12 Rocephin 1 Gm-D5w 50 Ml Bag Administered 12/26/20 21:13 Dose 1 g in 50 mls @ ud IV .STK-MED ONE Lab/Rad Data: Laboratory Result Diagrams 12/26/20 17:44 12/26/20 17:44 Laboratory Results 12/26/20 12/26/20 12/26/20 Range/Units 21:51 19:23 17:44 WBC (4.0-10.5) K/mm3 RBC (4.1-5.6) M/mm3 Hgb (12.5-18.0) gm/dl Hct (42-50) % MCV (78-100) fl MCH (26-32) pg MCHC (32-36) g/dl RDW (11.5-14.0) % Plt Count (150-450) K/mm3 MPV (7.5-11.0) fl Gran % (36.0-66.0) % Eos # (Auto) (0-0.5) Absolute Lymphs (auto) (1.0-4.6) Absolute Monos (auto) (0.0-1.3) Lymphocytes % (24.0-44.0) % Monocytes % (0.0-12.0) % Eosinophils % (0.00-5.0) % Basophils % (0.0-0.4) % Absolute Granulocytes (1.4-6.9) Basophils # (0-0.4) PT (9.4-12.5) SECONDS INR (0.8-3.0) APTT (25.1-36.5) SECONDS Sodium 140 (137-145) mmol/L Potassium 5.1 (3.5-5.1) mmol/L Chloride 106 (98-107) mmol/L Carbon Dioxide 27 (22-30) mmol/L Anion Gap 12.4 (5-15) MEQ/L BUN 24 H (9-20) mg/dL Creatinine 2.48 H (0.66-1.25) mg/dL Estimated GFR 26.5 ML/MIN Glucose 96 (74-106) mg/dL Calcium 8.8 (8.4-10.2) mg/dL Total Bilirubin 0.40 (0.2-1.3) mg/dL AST 27 (17-59) U/L ALT 16 (0-50) U/L Alkaline Phosphatase 85 (38-126) U/L Serum Total Protein 6.9 (6.3-8.2) g/dL Albumin 3.9 (3.5-5.0) g/dL Urine Color YELLOW (YELLOW) Urine Appearance CLEAR (CLEAR) Urine pH 7.0 (5-6) Ur Specific Eugene 1.016 (1.005-1.025) Urine Protein NEGATIVE (Negative) Urine Ketones NEGATIVE (NEGATIVE) Urine Blood NEGATIVE (0-5) Vicente/ul Urine Nitrite NEGATIVE (NEGATIVE) Urine Bilirubin NEGATIVE (NEGATIVE) Urine Urobilinogen NEGATIVE (0-1) mg/dL Ur Leukocyte Esterase NEGATIVE (NEGATIVE) Urine WBC (Auto) NONE (0-5) /HPF Urine RBC (Auto) 0-2 (0-2) /HPF U Epithel Cells (Auto) NONE (FEW) /HPF Urine Bacteria (Auto) NONE (NEGATIVE) /HPF Urine Culture Reflexed NO (NO) Urine Glucose 50 (NEGATIVE) mg/dL SARS-CoV-2 (PCR) NEGATIVE (NEGATIVE) 12/26/20 12/26/20 Range/Units 17:44 17:44 WBC 8.2 (4.0-10.5) K/mm3 RBC 3.54 L (4.1-5.6) M/mm3 Hgb 11.3 L (12.5-18.0) gm/dl Hct 36.7 L (42-50) % MCV 103.7 H (78-100) fl MCH 31.9 (26-32) pg MCHC 30.8 L (32-36) g/dl RDW 12.7 (11.5-14.0) % Plt Count 244 (150-450) K/mm3 MPV 9.7 (7.5-11.0) fl Gran % 70.5 H (36.0-66.0) % Eos # (Auto) 0.37 (0-0.5) Absolute Lymphs (auto) 1.33 (1.0-4.6) Absolute Monos (auto) 0.68 (0.0-1.3) Lymphocytes % 16.2 L (24.0-44.0) % Monocytes % 8.3 (0.0-12.0) % Eosinophils % 4.5 (0.00-5.0) % Basophils % 0.5 (0.0-0.4) % Absolute Granulocytes 5.78 (1.4-6.9) Basophils # 0.04 (0-0.4) PT 28.8 H (9.4-12.5) SECONDS INR 2.44 (0.8-3.0) APTT 55.6 H (25.1-36.5) SECONDS Sodium (137-145) mmol/L Potassium (3.5-5.1) mmol/L Chloride (98-107) mmol/L Carbon Dioxide (22-30) mmol/L Anion Gap (5-15) MEQ/L BUN (9-20) mg/dL Creatinine (0.66-1.25) mg/dL Estimated GFR ML/MIN Glucose (74-106) mg/dL Calcium (8.4-10.2) mg/dL Total Bilirubin (0.2-1.3) mg/dL AST (17-59) U/L ALT (0-50) U/L Alkaline Phosphatase (38-126) U/L Serum Total Protein (6.3-8.2) g/dL Albumin (3.5-5.0) g/dL Urine Color (YELLOW) Urine Appearance (CLEAR) Urine pH (5-6) Ur Specific Eugene (1.005-1.025) Urine Protein (Negative) Urine Ketones (NEGATIVE) Urine Blood (0-5) Vicente/ul Urine Nitrite (NEGATIVE) Urine Bilirubin (NEGATIVE) Urine Urobilinogen (0-1) mg/dL Ur Leukocyte Esterase (NEGATIVE) Urine WBC (Auto) (0-5) /HPF Urine RBC (Auto) (0-2) /HPF U Epithel Cells (Auto) (FEW) /HPF Urine Bacteria (Auto) (NEGATIVE) /HPF Urine Culture Reflexed (NO) Urine Glucose (NEGATIVE) mg/dL SARS-CoV-2 (PCR) (NEGATIVE) - Progress Progress: improved Progress Note: Ross catheter inserted. The attained 600 cc of urine. UA is not suggestive of UTI at this time. CT abdomen pelvis performed. No obstructive uropathy observed on CT scan. However clinically patient presented with obstructive uropathy. Case discussed with Dr. Enrique. Dr. Enrique requested IV fluids at 125 cc/h. Ross catheter maintained. Patient received a gram of Rocephin. Patient will be admitted for IV fluids. We will repeat labs in the morning. Plan of care discussed with patient and family. Patient agrees to admission [facility] for further evaluation and treatment. 12/26/20 23:24 Discussed with .: Michael Will see patient in: hospital (observation) Counseled pt/family regarding: lab results, diagnosis, rad results - Departure Departure Disposition: Observation Clinical Impression: Obstructive uropathy, Diverticulosis, Acute renal injury Condition: Stable Critical Care Time: No
[2020-12-26 19:10] LABS: ALBUMIN 3.9 g/dL (3.5-5.0); ANION GAP 12.4 MEQ/L (5-15); BILIRUBIN,TOTAL 0.4 mg/dL (0.2-1.3); Calcium 8.8 mg/dL (8.4-10.2); Creatinine 1 2.48 mg/dL (0.66-1.25); EST GLOMERULAR FILTRATION RATE 26.5 ML/MIN; Potassium 5.1 mmol/L (3.5-5.1); Total Protein 6.9 g/dL (6.3-8.2)
[2020-12-26 21:03] LABS: Appearance CLEAR (CLEAR); Bilirubin NEGATIVE (NEGATIVE); Blood NEGATIVE Ery/ul (0-5); Glucose 50 mg/dL (NEGATIVE); Ketones NEGATIVE (NEGATIVE); Leukocyte Esterase NEGATIVE (NEGATIVE); Nitrite NEGATIVE (NEGATIVE); Protein,Urine Dip NEGATIVE (Negative); RBC 0-2 /HPF (0-2); Specific Gravity 1.016 (1.005-1.025); Urobilinogen NEGATIVE mg/dL (0-1)
[2020-12-26] MEDS ORDERED: ROCEPHIN 1 Gm-D5w 50 ml Bag** 1 G/50 ML IVPB IV STA (21:08)
[2020-12-26] MEDS ORDERED: ROCEPHIN 1 Gm-D5w 50 ml Bag** 1 G/50 ML IVPB IV ONE (21:12)
[2020-12-26] MEDS ORDERED: Sodium Chloride 0.9% 1000 ML 1,000 ML IV SCH (21:15)
[2020-12-26] MEDS ORDERED: MORPHINE SULFATE 2 MG INJ IV PRN (23:27)
[2020-12-27] MEDS: Sodium Chloride 0.9% 1000 ML 1,000 ML IV SCH ×3 (04:56→20:10)
[2020-12-27 05:27] LABS: Absolute Neutrophil Ct (ANC) 5.49 (1.4-6.9); BASOPHIL % 0.8 % (0.0-0.4); Basophil (Absolute #) 0.06 (0-0.4); Eosinophil % 3.9 % (0.00-5.0); Hematocrit 33.7 % (42-50); Hemoglobin 10.1 gm/dl (12.5-18.0); Lymphocyte (Absolute #) 1.28 (1.0-4.6); Lymphocytes % 16.5 % (24.0-44.0); Mean Cell Volume 104.7 fl (78-100); Mean Corpuscular Hemoglobin 31.4 pg (26-32); Mean Platelet Volume 9.9 fl (7.5-11.0); Monocyte (Absolute #) 0.65 (0.0-1.3); Monocytes % 8.4 % (0.0-12.0); Neutrophil % 70.4 % (36.0-66.0); Platelet Count 224 K/mm3 (150-450); Red Blood Count 3.22 M/mm3 (4.1-5.6); Red Cell Distribution Width 12.7 % (11.5-14.0); White Blood Count 7.8 K/mm3 (4.0-10.5)
[2020-12-27 06:17] LABS: ALBUMIN 3.3 g/dL (3.5-5.0); ANION GAP 10.4 MEQ/L (5-15); BILIRUBIN,TOTAL 0.3 mg/dL (0.2-1.3); Calcium 8.4 mg/dL (8.4-10.2); Creatinine 1 2.25 mg/dL (0.66-1.25); EST GLOMERULAR FILTRATION RATE 29.7 ML/MIN; Potassium 4.9 mmol/L (3.5-5.1); Total Protein 5.9 g/dL (6.3-8.2)
--- NOTE | 2020-12-27 08:39 | XRAY ---
Indication: Obstructive uropathy. Multiple contiguous axial images obtained through the abdomen and pelvis without contrast using renal stone protocol. Comparison: September 26, 2017. Lung bases again demonstrates small right effusion, moderate bibasilar compressive atelectasis, scattered fibrosis/scarring, and a few tiny calcified granulomas. Heart is now borderline enlarged with new pacer leads enlarged. No renal calculus or evidence for obstructive uropathy in either system. Urinary bladder demonstrates new Ross balloon catheter with intraluminal air. Stable enlarged prostate gland. Noncontrasted stomach and bowel loops remain nonobstructed. Normal appendix. Stable scattered colonic diverticulosis without diverticulitis. No free fluid/air. Remaining liver, gallbladder, pancreas, spleen, adrenal glands, kidneys, ureters, and bladder unremarkable for noncontrast exam. There remains mild scattered aortoiliac calcifications without AAA and IVC filter in situ. Osseous structures again demonstrate osteopenia, mild/moderate multilevel degenerative spondylosis, and remote L1 compression fracture. Also stable small bilateral fatty inguinal hernias. Impression: 1. Continued negative renal calculus or evidence for obstructive uropathy. New Ross catheter in situ. 2. Grossly stable right lung base effusion and bibasilar atelectasis. New borderline cardiomegaly. 3. Again incidental colonic diverticulosis, enlarged prostate gland, bilateral fatty inguinal hernias, chronic bony findings, and old granulomatous disease.
[2020-12-27] MEDS ORDERED: MEDICATION INTERVENTION MC SCH (09:30)
[2020-12-27] MEDS: Prozac 20 MG PO SCH (10:53)
[2020-12-27] MEDS: Coumadin 1 MG*** 1 MG, Coumadin 3 MG*** 3 MG PO SCH ×2 (17:34)
[2020-12-27] MEDS ORDERED: Coumadin 3 MG PO SCH (18:00)
[2020-12-27] MEDS: PATIENT OWN MEDICATION PO SCH (21:25)
[2020-12-27] MEDS: ROCEPHIN 1 Gm-D5w 50 ml Bag** 1 G/50 ML IVPB IV SCH (21:25)
[2020-12-27] MEDS ORDERED: WARFARIN SODIUM PO SCH (22:00)
[2020-12-27] MEDS ORDERED: QUININE SULFATE PO SCH (22:00)
[2020-12-28] MEDS: Sodium Chloride 0.9% 1000 ML 1,000 ML IV SCH ×3 (04:02→17:51)
[2020-12-28 07:02] LABS: Hematocrit 33.6 % (42-50); Hemoglobin 10.3 gm/dl (12.5-18.0); Mean Corpuscular Hemoglobin 32.2 pg (26-32); Mean Corpuscular Hgb Concent. 30.7 g/dl (32-36); Mean Platelet Volume 10.2 fl (7.5-11.0); Platelet Count 220 K/mm3 (150-450); Red Cell Distribution Width 12.6 % (11.5-14.0); White Blood Count 9.8 K/mm3 (4.0-10.5)
[2020-12-28 07:13] LABS: ALBUMIN 3.2 g/dL (3.5-5.0); BILIRUBIN,TOTAL 0.5 mg/dL (0.2-1.3); Calcium 8.2 mg/dL (8.4-10.2); Creatinine 1 2.01 mg/dL (0.66-1.25); EST GLOMERULAR FILTRATION RATE 33.8 ML/MIN; Potassium 4.8 mmol/L (3.5-5.1); Total Protein 5.8 g/dL (6.3-8.2)
[2020-12-28] MEDS: Prozac 20 MG PO SCH ×2 (10:40→18:03)
--- NOTE | 2020-12-28 12:48 | PCM.HP ---
History of Present Illness - Chief Complaint Chief Complaint: acute renal injury, obstructive uropathy, dehydration, maln ourishment, pros Date: 12/27/20 History of Present Illness: is a 85 year old male. Pt. was noted on to have elevated BUN and Creatinine with routine annual labs, pt. instructed to hold lasix and have labs rechecked Wednesday, upon the recheck Cr was up to 2.86 up from 2.54 with a baseline in the 1.25 range. Pt. had no complaints, exam was normal but found to have 600CC in bladder upon anchoring acosta catheter. Pt. admitted for hydration and continued assessment. Pt. about 2 weeks ago and I suspect that is a bid part of his acute decline. - Review of Systems Constitutional: No Fever, No Chills Eyes: No Symptoms Ears, Nose, & Throat: No Symptoms Respiratory: No Cough, No Short Of Breath Cardiac: No Chest Pain, No Edema, No Syncope Abdominal/Gastrointestinal: No Abdominal Pain, No Nausea, No Vomiting, No Diarrhea Genitourinary Symptoms: No Dysuria Musculoskeletal: No Back Pain, No Neck Pain Skin: No Rash Neurological: No Dizziness, No Focal Weakness, No Sensory Changes Psychological: No Symptoms Endocrine: No Symptoms Hematologic/Lymphatic: No Symptoms Immunological/Allergic: No Symptoms Medications & Allergies Home Medications: Home Medication List Metformin HCl 1000 mg [Glucophage 1000 MG] 1,000 mg PO BID 01/28/13 [History Confirmed 12/27/20] Furosemide 40 mg [Lasix 40 MG] 40 mg PO QAM 07/28/18 [History Confirmed 12/27/20] Warfarin Sodium 2 mg [Coumadin 2 MG] 5 mg PO QPM 07/28/18 [History Confirmed 12/26/20] quiNINE sulfate [Quinine Sulfate] 600 mg PO HS 07/28/18 [History Confirmed 12/27/20] Warfarin Sodium 4 mg PO MO 02/27/20 [History Confirmed 12/27/20] Allergies/Adverse Reactions: Allergies Allergy/AdvReac Type Severity Reaction Status Date / Time No Known Drug Allergies Allergy Verified 12/26/20 17:24 - Past Medical History Past Medical History: Yes Neurological History: No Pertinent History ENT History: Cataracts Cardiac History: Coronary Artery Disease, Deep Vein Thrombosis Respiratory History: No Pertinent History Endocrine Medical History: Diabetes Type II Musculoskelatal History: Other GI Medical History: Hernia, Ulcer History: Other Pyscho-Social History: No Pertinent History Male Reproductive Disorders: Prostate Problems Comment: Leg Cramps, enlarged prostate, blood clot in l leg and lung years ago, kidney stones, shingles, facial fx, right shoulder injury - Past Surgical History Past Surgical History: Yes Neuro Surgical History: No Pertinent History Cardiac History: CABG Respiratory Surgery: No Pertinent History GI Surgical History: No Pertinent History Genitourinary Surgical Hx: Other Musculskeletal Surgical Hx: Orthopedic Surgery Male Surgical History: No Pertinent History Other Surgical History: Removed kidney stones at the age of 23, ortho shoulder repair and numbness in right arm, turp 2012, skin cancer removed - Social History Smoking Status: Former smoker Exposure to second hand smoke: No Alcohol: None Drug Use: none - Physical Exam Vital Signs: Vital Signs - 24 hr Temp Pulse Resp BP Pulse Ox 12/28/20 11:49 99.4 F 63 22 159/71 90 L 12/28/20 08:00 22 12/28/20 07:39 99.9 F 62 22 153/67 90 L 12/28/20 04:00 97.9 F 67 19 151/70 92 L 12/28/20 00:00 98.0 F 60 18 158/68 91 L 12/27/20 19:39 98.0 F 66 19 164/69 93 L 12/27/20 16:00 98.2 F 70 22 148/69 93 L General Appearance: no apparent distress, alert Neurologic Exam: alert, cooperative, normal mood/affect, nml cerebellar function, sensation nml, No motor deficits Eye Exam: PERRL/EOMI, eyes nml inspection Ears, Nose, Throat Exam: normal ENT inspection, pharynx normal, moist mucous membranes Neck Exam: normal inspection, non-tender, supple, full range of motion Respiratory Exam: normal breath sounds, lungs clear, No respiratory distress Cardiovascular Exam: regular rate/rhythm, normal heart sounds, normal peripheral pulses Gastrointestinal/Abdomen Exam: soft, normal bowel sounds, No tenderness, No mass Back Exam: normal inspection, normal range of motion, No CVA tenderness, No vertebral tenderness Extremity Exam: normal inspection, normal range of motion, pelvis stable Skin Exam: normal color, warm, dry, No rash Lymphatic Exam: No adenopathy Results - Labs Lab/Micro Results: Lab Results-Last 24 Hours 12/28/20 12/28/20 12/28/20 Range/Units 05:40 06:02 06:02 WBC 9.8 (4.0-10.5) K/mm3 RBC 3.20 L (4.1-5.6) M/mm3 Hgb 10.3 L (12.5-18.0) gm/dl Hct 33.6 L (42-50) % MCV 105.0 H (78-100) fl MCH 32.2 H (26-32) pg MCHC 30.7 L (32-36) g/dl RDW 12.6 (11.5-14.0) % Plt Count 220 (150-450) K/mm3 MPV 10.2 (7.5-11.0) fl Sodium 140 (137-145) mmol/L Potassium 4.8 (3.5-5.1) mmol/L Chloride 110 H (98-107) mmol/L Carbon Dioxide 23 (22-30) mmol/L Anion Gap 11.0 (5-15) MEQ/L BUN 17 (9-20) mg/dL Creatinine 2.01 H (0.66-1.25) mg/dL Estimated GFR 33.8 ML/MIN Glucose 116 H (74-106) mg/dL POC Glucometer (74 to 106) mg/dL Hemoglobin A1c 6.42 H (4.5-6.0) % Calcium 8.2 L (8.4-10.2) mg/dL Total Bilirubin 0.50 (0.2-1.3) mg/dL AST 22 (17-59) U/L ALT 13 (0-50) U/L Alkaline Phosphatase 69 (38-126) U/L Serum Total Protein 5.8 L (6.3-8.2) g/dL Albumin 3.2 L (3.5-5.0) g/dL 12/28/20 Range/Units 12:08 WBC (4.0-10.5) K/mm3 RBC (4.1-5.6) M/mm3 Hgb (12.5-18.0) gm/dl Hct (42-50) % MCV (78-100) fl MCH (26-32) pg MCHC (32-36) g/dl RDW (11.5-14.0) % Plt Count (150-450) K/mm3 MPV (7.5-11.0) fl Sodium (137-145) mmol/L Potassium (3.5-5.1) mmol/L Chloride (98-107) mmol/L Carbon Dioxide (22-30) mmol/L Anion Gap (5-15) MEQ/L BUN (9-20) mg/dL Creatinine (0.66-1.25) mg/dL Estimated GFR ML/MIN Glucose (74-106) mg/dL POC Glucometer 139 H (74 to 106) mg/dL Hemoglobin A1c (4.5-6.0) % Calcium (8.4-10.2) mg/dL Total Bilirubin (0.2-1.3) mg/dL AST (17-59) U/L ALT (0-50) U/L Alkaline Phosphatase (38-126) U/L Serum Total Protein (6.3-8.2) g/dL Albumin (3.5-5.0) g/dL Microbiology 12/26/20 19:23 Urine Culture - Final Urine, Catheterized NO GROWTH - Radiology Impressions Radiology Exams & Impressions: Radiology Procedures Category Date Time Status ABDOMEN AND PELVIS W/0 CONTRAS [CT] Stat Exams 12/26/20 19:33 Completed Assessment/Plan (1) Dehydration Current Visit: Yes Status: Acute Assessment & Plan: Judicious IV hydration, hold lasix Code(s): E86.0 - DEHYDRATION (2) Malnourished Current Visit: Yes Status: Acute Assessment & Plan: add boost TID, will start prozac for underlying depression as likely etiology Code(s): E46 - UNSPECIFIED PROTEIN-CALORIE MALNUTRITION (3) Prostatitis Current Visit: Yes Status: Acute Assessment & Plan: IV antibiotic Code(s): N41.9 - INFLAMMATORY DISEASE OF PROSTATE, UNSPECIFIED (4) Acute renal injury Current Visit: Yes Status: Acute Assessment & Plan: IV hydration, hold glucophage, will add accuchecks and sliding scale for coverage in the mean time Code(s): N17.9 - ACUTE KIDNEY FAILURE, UNSPECIFIED (5) Obstructive uropathy Current Visit: Yes Status: Acute Assessment & Plan: Acosta had been placed and noted blood from the acosta, will check post void residual after 24 -48 hours of iv abx for prostate infection Code(s): N13.9 - OBSTRUCTIVE AND REFLUX UROPATHY, UNSPECIFIED (6) Warfarin anticoagulation Current Visit: No Status: Acute Assessment & Plan: continue current dose Code(s): Z79.01 - INTERMEDIATE (CURRENT) USE OF ANTICOAGULANTS
--- NOTE | 2020-12-28 12:56 | PCM.NOTE ---
Date and Time: 12/28/20 1253 Subjective Assessment: Pt. still feeling fine, no complaints, notes urinating well, and tolerating the boost without problems, initially refused prozac but will now begin taking this. Pt. notes just no apetite - Review of Systems Constitutional: No Fever, No Chills Eyes: No Symptoms Ears, Nose, & Throat: No Symptoms Respiratory: No Cough, No Short Of Breath Cardiac: No Chest Pain, No Edema, No Syncope Abdominal/Gastrointestinal: No Abdominal Pain, No Nausea, No Vomiting, No Diarrhea Genitourinary Symptoms: No Dysuria Musculoskeletal: No Back Pain, No Neck Pain Skin: No Rash Neurological: No Dizziness, No Focal Weakness, No Sensory Changes Psychological: No Symptoms Endocrine: No Symptoms Hematologic/Lymphatic: No Symptoms Immunological/Allergic: No Symptoms Objective Exam General Appearance: no apparent distress, alert Neurologic Exam: alert, cooperative, normal mood/affect, nml cerebellar function, sensation nml, No motor deficits Skin Exam: normal color, warm, dry Eye Exam: PERRL, EOMI, eyes nml inspection Ears, Nose, Throat Exam: normal ENT inspection, moist mucous membranes Neck Exam: normal inspection, non-tender, supple, full range of motion Respiratory Exam: normal breath sounds, lungs clear, No respiratory distress Cardiovascular Exam: regular rate/rhythm, normal heart sounds Gastrointestinal/Abdomen Exam: soft, No tenderness, No mass Extremity Exam: normal inspection, normal range of motion Back Exam: normal inspection, normal range of motion, No CVA tenderness, No vertebral tenderness Male Genitalia Exam: deferred Rectal Exam: deferred OBJECTIVE DATA Vital Signs: Vital Signs - 24 hr Temp Pulse Resp BP Pulse Ox 12/28/20 11:49 99.4 F 63 22 159/71 90 L 12/28/20 08:00 22 12/28/20 07:39 99.9 F 62 22 153/67 90 L 12/28/20 04:00 97.9 F 67 19 151/70 92 L 12/28/20 00:00 98.0 F 60 18 158/68 91 L 12/27/20 19:39 98.0 F 66 19 164/69 93 L 12/27/20 16:00 98.2 F 70 22 148/69 93 L Pain Assessment - Last Documented Pain Intensity 0 Intake and Output: Intake & Output 12/26/20 12/27/20 12/28/2012/29/21 11:59 11:59 11:59 11:59 Intake Total 834 3828 Output Total 1700 Balance -866 3828 Weight 73.7 kg Lab Results: Lab Results-Last 24 Hours 12/28/20 12/28/20 12/28/20 Range/Units 05:40 06:02 06:02 WBC 9.8 (4.0-10.5) K/mm3 RBC 3.20 L (4.1-5.6) M/mm3 Hgb 10.3 L (12.5-18.0) gm/dl Hct 33.6 L (42-50) % MCV 105.0 H (78-100) fl MCH 32.2 H (26-32) pg MCHC 30.7 L (32-36) g/dl RDW 12.6 (11.5-14.0) % Plt Count 220 (150-450) K/mm3 MPV 10.2 (7.5-11.0) fl Sodium 140 (137-145) mmol/L Potassium 4.8 (3.5-5.1) mmol/L Chloride 110 H (98-107) mmol/L Carbon Dioxide 23 (22-30) mmol/L Anion Gap 11.0 (5-15) MEQ/L BUN 17 (9-20) mg/dL Creatinine 2.01 H (0.66-1.25) mg/dL Estimated GFR 33.8 ML/MIN Glucose 116 H (74-106) mg/dL POC Glucometer (74 to 106) mg/dL Hemoglobin A1c 6.42 H (4.5-6.0) % Calcium 8.2 L (8.4-10.2) mg/dL Total Bilirubin 0.50 (0.2-1.3) mg/dL AST 22 (17-59) U/L ALT 13 (0-50) U/L Alkaline Phosphatase 69 (38-126) U/L Serum Total Protein 5.8 L (6.3-8.2) g/dL Albumin 3.2 L (3.5-5.0) g/dL 12/28/20 Range/Units 12:08 WBC (4.0-10.5) K/mm3 RBC (4.1-5.6) M/mm3 Hgb (12.5-18.0) gm/dl Hct (42-50) % MCV (78-100) fl MCH (26-32) pg MCHC (32-36) g/dl RDW (11.5-14.0) % Plt Count (150-450) K/mm3 MPV (7.5-11.0) fl Sodium (137-145) mmol/L Potassium (3.5-5.1) mmol/L Chloride (98-107) mmol/L Carbon Dioxide (22-30) mmol/L Anion Gap (5-15) MEQ/L BUN (9-20) mg/dL Creatinine (0.66-1.25) mg/dL Estimated GFR ML/MIN Glucose (74-106) mg/dL POC Glucometer 139 H (74 to 106) mg/dL Hemoglobin A1c (4.5-6.0) % Calcium (8.4-10.2) mg/dL Total Bilirubin (0.2-1.3) mg/dL AST (17-59) U/L ALT (0-50) U/L Alkaline Phosphatase (38-126) U/L Serum Total Protein (6.3-8.2) g/dL Albumin (3.5-5.0) g/dL Radiology Exams: Radiology Procedures Category Date Time Status ABDOMEN AND PELVIS W/0 CONTRAS [CT] Stat Exams 12/26/20 19:33 Completed Assessment/Plan (1) Dehydration Current Visit: Yes Status: Acute Assessment & Plan: BUN now normal CR down to 2.01, will increase ivf to 160 per hour Code(s): E86.0 - DEHYDRATION (2) Malnourished Current Visit: Yes Status: Acute Assessment & Plan: continue boost Code(s): E46 - UNSPECIFIED PROTEIN-CALORIE MALNUTRITION (3) Prostatitis Current Visit: Yes Status: Acute Assessment & Plan: stay on iv abx Code(s): N41.9 - INFLAMMATORY DISEASE OF PROSTATE, UNSPECIFIED (4) Acute renal injury Current Visit: Yes Status: Acute Code(s): N17.9 - ACUTE KIDNEY FAILURE, UNSPECIFIED (5) Obstructive uropathy Current Visit: Yes Status: Acute Assessment & Plan: check post void residual Code(s): N13.9 - OBSTRUCTIVE AND REFLUX UROPATHY, UNSPECIFIED (6) Warfarin anticoagulation Current Visit: No Status: Acute Code(s): Z79.01 - GROUP HOME (CURRENT) USE OF ANTICOAGULANTS
[2020-12-28] MEDS: Coumadin 5 MG PO SCH (18:02)
[2020-12-28] MEDS ORDERED: Lasix 20 MG/2 ML ONE (20:18)
[2020-12-28] MEDS: Lasix 20 MG/2 ML IV ONE ×2 (20:22)
[2020-12-28] MEDS: ROCEPHIN 1 Gm-D5w 50 ml Bag** 1 G/50 ML IVPB IV SCH (21:24)
[2020-12-28] MEDS: PATIENT OWN MEDICATION PO SCH (21:25)
[2020-12-29] MEDS: Sodium Chloride 0.9% 1000 ML 1,000 ML IV SCH ×4 (00:08→22:17)
[2020-12-29 06:13] LABS: INR 1.91 (0.8-3.0); PROTIME 22.5 SECONDS (9.4-12.5)
[2020-12-29 06:17] LABS: ALBUMIN 3.2 g/dL (3.5-5.0); ANION GAP 11.5 MEQ/L (5-15); BILIRUBIN,TOTAL 0.4 mg/dL (0.2-1.3); Calcium 8.1 mg/dL (8.4-10.2); Creatinine 1 1.83 mg/dL (0.66-1.25); EST GLOMERULAR FILTRATION RATE 37.7 ML/MIN; Total Protein 6.2 g/dL (6.3-8.2)
[2020-12-29 06:18] LABS: Mean Cell Volume 103.6 fl (78-100); Mean Corpuscular Hemoglobin 32.4 pg (26-32); Mean Corpuscular Hgb Concent. 31.3 g/dl (32-36); Mean Platelet Volume 10.3 fl (7.5-11.0); Platelet Count 233 K/mm3 (150-450); Red Blood Count 3.09 M/mm3 (4.1-5.6); Red Cell Distribution Width 12.6 % (11.5-14.0); White Blood Count 9.8 K/mm3 (4.0-10.5)
[2020-12-29] MEDS ORDERED: Lasix 20 MG/2 ML IV ONE (08:27)
[2020-12-29] MEDS: Prozac 20 MG PO SCH (10:15)
--- NOTE | 2020-12-29 15:00 | PCM.NOTE ---
Date and Time: 12/29/20 1451 Subjective Assessment: Overnight, pt had some crackles in the lungs and SOB. Twenty mg IV lasix was given x 1 with great return. This morning, pt has appears tachypneic to the RN. - Review of Systems Respiratory: Short Of Breath Genitourinary Symptoms: Other (polyuria.) Objective Exam General Appearance: no apparent distress, alert, other (does appear mildly tachypneic at rest) Neurologic Exam: oriented x 3, cooperative, normal mood/affect Skin Exam: normal color, warm, dry, No rash Eye Exam: eyes nml inspection Ears, Nose, Throat Exam: moist mucous membranes Neck Exam: normal inspection, non-tender, No lymphadenopathy Respiratory Exam: normal breath sounds, lungs clear, No crackles/rales, No rhonchi, No wheezing Cardiovascular Exam: regular rate/rhythm, No murmur, No other Gastrointestinal/Abdomen Exam: soft, normal bowel sounds, No tenderness, No mass, No guarding, No rebound Extremity Exam: normal inspection, No pedal edema, No swelling OBJECTIVE DATA Vital Signs: Vital Signs - 24 hr Temp Pulse Resp BP Pulse Ox 12/29/20 12:00 99.0 F 62 18 113/77 92 L 12/29/20 07:59 22 12/29/20 07:58 98.8 F 62 20 190/77 92 L 12/29/20 04:05 98.1 F 63 25 H 185/79 94 L 12/29/20 00:00 26 H 12/28/20 23:28 98.2 F 65 26 H 176/76 95 12/28/20 20:00 98.3 F 72 24 172/76 92 L 12/28/20 19:55 95 12/28/20 16:00 98.3 F 61 16 161/73 89 L Pain Assessment - Last Documented Pain Intensity 0 Intake and Output: Intake & Output 12/27/20 12/28/20 12/29/20 12/30/20 11:59 11:59 11:59 11:59 Intake Total 834 3828 4812 360 Output Total 1700 2400 Balance -199 6247 8102 360 Weight 73.7 kg 76.4 kg Lab Results: Lab Results-Last 24 Hours 12/28/20 12/28/20 12/29/20 Range/Units 16:16 20:57 05:35 WBC 9.8 (4.0-10.5) K/mm3 RBC 3.09 L (4.1-5.6) M/mm3 Hgb 10.0 L (12.5-18.0) gm/dl Hct 32.0 L (42-50) % MCV 103.6 H (78-100) fl MCH 32.4 H (26-32) pg MCHC 31.3 L (32-36) g/dl RDW 12.6 (11.5-14.0) % Plt Count 233 (150-450) K/mm3 MPV 10.3 (7.5-11.0) fl PT (9.4-12.5) SECONDS INR (0.8-3.0) Sodium (137-145) mmol/L Potassium (3.5-5.1) mmol/L Chloride (98-107) mmol/L Carbon Dioxide (22-30) mmol/L Anion Gap (5-15) MEQ/L BUN (9-20) mg/dL Creatinine (0.66-1.25) mg/dL Estimated GFR ML/MIN Glucose (74-106) mg/dL POC Glucometer 132 H 200 H (74 to 106) mg/dL Calcium (8.4-10.2) mg/dL Total Bilirubin (0.2-1.3) mg/dL AST (17-59) U/L ALT (0-50) U/L Alkaline Phosphatase (38-126) U/L Serum Total Protein (6.3-8.2) g/dL Albumin (3.5-5.0) g/dL 12/29/20 12/29/20 12/29/20 Range/Units 05:35 05:35 07:30 WBC (4.0-10.5) K/mm3 RBC (4.1-5.6) M/mm3 Hgb (12.5-18.0) gm/dl Hct (42-50) % MCV (78-100) fl MCH (26-32) pg MCHC (32-36) g/dl RDW (11.5-14.0) % Plt Count (150-450) K/mm3 MPV (7.5-11.0) fl PT 22.5 H (9.4-12.5) SECONDS INR 1.91 (0.8-3.0) Sodium 139 (137-145) mmol/L Potassium 4.0 (3.5-5.1) mmol/L Chloride 111 H (98-107) mmol/L Carbon Dioxide 21 L (22-30) mmol/L Anion Gap 11.5 (5-15) MEQ/L BUN 17 (9-20) mg/dL Creatinine 1.83 H (0.66-1.25) mg/dL Estimated GFR 37.7 ML/MIN Glucose 133 H (74-106) mg/dL POC Glucometer 120 H (74 to 106) mg/dL Calcium 8.1 L (8.4-10.2) mg/dL Total Bilirubin 0.40 (0.2-1.3) mg/dL AST 25 (17-59) U/L ALT 16 (0-50) U/L Alkaline Phosphatase 73 (38-126) U/L Serum Total Protein 6.2 L (6.3-8.2) g/dL Albumin 3.2 L (3.5-5.0) g/dL 12/29/20 Range/Units 11:24 WBC (4.0-10.5) K/mm3 RBC (4.1-5.6) M/mm3 Hgb (12.5-18.0) gm/dl Hct (42-50) % MCV (78-100) fl MCH (26-32) pg MCHC (32-36) g/dl RDW (11.5-14.0) % Plt Count (150-450) K/mm3 MPV (7.5-11.0) fl PT (9.4-12.5) SECONDS INR (0.8-3.0) Sodium (137-145) mmol/L Potassium (3.5-5.1) mmol/L Chloride (98-107) mmol/L Carbon Dioxide (22-30) mmol/L Anion Gap (5-15) MEQ/L BUN (9-20) mg/dL Creatinine (0.66-1.25) mg/dL Estimated GFR ML/MIN Glucose (74-106) mg/dL POC Glucometer 198 H (74 to 106) mg/dL Calcium (8.4-10.2) mg/dL Total Bilirubin (0.2-1.3) mg/dL AST (17-59) U/L ALT (0-50) U/L Alkaline Phosphatase (38-126) U/L Serum Total Protein (6.3-8.2) g/dL Albumin (3.5-5.0) g/dL Assessment/Plan (1) Acute renal injury Current Visit: Yes Status: Acute Assessment & Plan: His Cr is improved today; was 2.48 on admission and 2.01 yesterday - at 1.83 today, it's nearing the baseline of around 1.5. May be able to be discharged to home tomorrow. Code(s): N17.9 - ACUTE KIDNEY FAILURE, UNSPECIFIED (2) CHF (congestive heart failure) Current Visit: Yes Status: Acute Qualifiers: Heart failure type: unspecified Heart failure chronicity: unspecified Qualified Code(s): I50.9 - Heart failure, unspecified Assessment & Plan: As evidenced by SOB with fluid administration. Continuing the fluids, but may need periodic diuretic. Code(s): I50.9 - HEART FAILURE, UNSPECIFIED (3) Dehydration Current Visit: Yes Status: Acute Assessment & Plan: Nearly resolved. Code(s): E86.0 - DEHYDRATION
[2020-12-29] MEDS: Coumadin 5 MG PO SCH (17:50)
[2020-12-29] MEDS: PATIENT OWN MEDICATION PO SCH (22:18)
[2020-12-29] MEDS: ROCEPHIN 1 Gm-D5w 50 ml Bag** 1 G/50 ML IVPB IV SCH (22:19)
[2020-12-29] MEDS: HUMULIN R SQ PRN (22:23)
[2020-12-30 05:28] LABS: Hematocrit 30.8 % (42-50); Hemoglobin 9.5 gm/dl (12.5-18.0); Mean Cell Volume 102.7 fl (78-100); Mean Corpuscular Hemoglobin 31.7 pg (26-32); Mean Corpuscular Hgb Concent. 30.8 g/dl (32-36); Platelet Count 241 K/mm3 (150-450); Red Cell Distribution Width 12.5 % (11.5-14.0); White Blood Count 10.2 K/mm3 (4.0-10.5)
[2020-12-30 06:51] LABS: ANION GAP 13.1 MEQ/L (5-15); Creatinine 1 1.77 mg/dL (0.66-1.25); EST GLOMERULAR FILTRATION RATE 39.1 ML/MIN; Potassium 4.1 mmol/L (3.5-5.1)
[2020-12-30] MEDS ORDERED: WARFARIN SODIUM 4 MG PO SCH (09:17)
[2020-12-30] MEDS ORDERED: Lasix 20 MG/2 ML IV ONE (10:30)
[2020-12-30] MEDS: Prozac 20 MG PO SCH (10:43)
--- NOTE | 2020-12-30 14:10 | PCM.NOTE ---
Date and Time: 12/30/20 1405 Subjective Assessment: Pt. notes feeling weak since having a little CHF Wednesday night, his Lasix was resumed but still feeling weak today. - Review of Systems Constitutional: Weakness Eyes: No Symptoms Ears, Nose, & Throat: No Symptoms Respiratory: No Cough, No Short Of Breath Cardiac: No Chest Pain, No Edema, No Syncope OBJECTIVE DATA Vital Signs: Vital Signs - 24 hr Temp Pulse Resp BP Pulse Ox 12/30/20 12:00 98.0 F 91 H 16 176/71 92 L 12/30/20 08:00 16 12/30/20 07:59 98.8 F 67 16 173/77 91 L 12/30/20 07:14 92 L 12/30/20 04:00 98.4 F 64 22 180/76 93 L 12/30/20 00:00 22 12/29/20 23:27 98.2 F 66 22 176/75 94 L 12/29/20 20:00 97.9 F 83 20 170/71 95 12/29/20 16:00 98.7 F 61 16 181/77 95 12/29/20 15:02 94 L Pain Assessment - Last Documented Pain Intensity 0 Intake and Output: Intake & Output 12/28/20 12/29/20 12/30/20 12/31/20 11:59 11:59 11:59 11:59 Intake Total 3828 4812 4553 240 Output Total 2400 1750 Balance 3828 2412 2803 240 Weight 76.4 kg Lab Results: Lab Results-Last 24 Hours 12/29/20 12/29/20 12/30/20 Range/Units 15:33 21:26 05:02 WBC 10.2 (4.0-10.5) K/mm3 RBC 3.00 L (4.1-5.6) M/mm3 Hgb 9.5 L (12.5-18.0) gm/dl Hct 30.8 L (42-50) % MCV 102.7 H (78-100) fl MCH 31.7 (26-32) pg MCHC 30.8 L (32-36) g/dl RDW 12.5 (11.5-14.0) % Plt Count 241 (150-450) K/mm3 MPV 10.0 (7.5-11.0) fl Sodium (137-145) mmol/L Potassium (3.5-5.1) mmol/L Chloride (98-107) mmol/L Carbon Dioxide (22-30) mmol/L Anion Gap (5-15) MEQ/L BUN (9-20) mg/dL Creatinine (0.66-1.25) mg/dL Estimated GFR ML/MIN Glucose (74-106) mg/dL POC Glucometer 168 H 211 H (74 to 106) mg/dL Calcium (8.4-10.2) mg/dL 12/30/20 12/30/20 12/30/20 Range/Units 05:02 07:34 11:49 WBC (4.0-10.5) K/mm3 RBC (4.1-5.6) M/mm3 Hgb (12.5-18.0) gm/dl Hct (42-50) % MCV (78-100) fl MCH (26-32) pg MCHC (32-36) g/dl RDW (11.5-14.0) % Plt Count (150-450) K/mm3 MPV (7.5-11.0) fl Sodium 142 (137-145) mmol/L Potassium 4.1 (3.5-5.1) mmol/L Chloride 113 H (98-107) mmol/L Carbon Dioxide 20 L (22-30) mmol/L Anion Gap 13.1 (5-15) MEQ/L BUN 16 (9-20) mg/dL Creatinine 1.77 H (0.66-1.25) mg/dL Estimated GFR 39.1 ML/MIN Glucose 109 H (74-106) mg/dL POC Glucometer 102 131 H (74 to 106) mg/dL Calcium 8.0 L (8.4-10.2) mg/dL Radiology Exams: Radiology Procedures Category Date Time Status CHEST 2 VIEWS (PA AND LAT) Routine Exams 12/31/20 Ordered ECHO W/2D AND DOPPLER [US] Routine Exams 12/30/20 12:09 Taken Multi-Disciplinary Progress Notes: Multi-Disciplinary Progress Notes 12/30/20 09:20 (created 12/30/20 10:05) Respiratory Note by Yary Mayers PT'S O2 SAT ON 1LPM NASAL CANNULA WHILE AT REST WAS 88%. PT'S OXYGEN WAS INCREASED BACK TO 2LPM NASAL CANNULA. O2 SAT INCREASED TO 90%. NURSE AWARE. Initialized on 12/30/20 10:05 - END OF NOTE Assessment/Plan (1) Dehydration Current Visit: Yes Status: Acute Assessment & Plan: Creatinine is down to 1.77 from 1.83 yesterday, closer to his baseline, will start pt. on lasix 30mg daily with additional 20mg iv X1 today, ivf will be decreased to 125 per hour today working toward finding his new baseline as the 40mg daily caused him to go into acute kidney failure, although he was having no symptoms. Code(s): E86.0 - DEHYDRATION (2) Malnourished Current Visit: Yes Status: Acute Assessment & Plan: continue diet with additional nutritional support of boost Code(s): E46 - UNSPECIFIED PROTEIN-CALORIE MALNUTRITION (3) Prostatitis Current Visit: Yes Status: Acute Assessment & Plan: continue iv abx, he had 4L out yesterday from the added lasix Code(s): N41.9 - INFLAMMATORY DISEASE OF PROSTATE, UNSPECIFIED (4) Acute renal injury Current Visit: Yes Status: Acute Code(s): N17.9 - ACUTE KIDNEY FAILURE, UNSPECIFIED (5) Obstructive uropathy Current Visit: Yes Status: Acute Assessment & Plan: resolved, very close to his baseline Code(s): N13.9 - OBSTRUCTIVE AND REFLUX UROPATHY, UNSPECIFIED (6) Warfarin anticoagulation Current Visit: No Status: Acute Assessment & Plan: continue dosages Code(s): Z79.01 - ASSISTED (CURRENT) USE OF ANTICOAGULANTS (7) Generalized weakness Current Visit: Yes Status: Acute Assessment & Plan: ECHO and lexiscan will be performed, PT eval and treat, moniter labs and work with medications to get him on the right regimen Code(s): R53.1 - WEAKNESS
[2020-12-30] MEDS: Sodium Chloride 0.9% 1000 ML 1,000 ML IV SCH (17:59)
[2020-12-30] MEDS: Coumadin 1 MG*** 1 MG, Coumadin 3 MG*** 3 MG PO SCH ×2 (18:00)
[2020-12-30] MEDS: PATIENT OWN MEDICATION PO SCH (22:44)
[2020-12-30] MEDS: ROCEPHIN 1 Gm-D5w 50 ml Bag** 1 G/50 ML IVPB IV SCH (22:45)
[2020-12-31] MEDS: Sodium Chloride 0.9% 1000 ML 1,000 ML IV SCH (01:51)
[2020-12-31 05:20] LABS: Hematocrit 32.1 % (42-50); Hemoglobin 9.9 gm/dl (12.5-18.0); Mean Cell Volume 103.5 fl (78-100); Mean Corpuscular Hemoglobin 31.9 pg (26-32); Mean Corpuscular Hgb Concent. 30.8 g/dl (32-36); Mean Platelet Volume 9.9 fl (7.5-11.0); Platelet Count 309 K/mm3 (150-450); Red Cell Distribution Width 12.6 % (11.5-14.0); White Blood Count 10.5 K/mm3 (4.0-10.5)
[2020-12-31 05:38] LABS: ANION GAP 14.9 MEQ/L (5-15); Calcium 8.5 mg/dL (8.4-10.2); Creatinine 1 1.74 mg/dL (0.66-1.25); EST GLOMERULAR FILTRATION RATE 39.9 ML/MIN
[2020-12-31] MEDS: Lasix 40 MG/4 ML IV SCH (08:32)
[2020-12-31] MEDS: APRESOLINE 20 MG/ML INJ IV PRN ×2 (08:37→17:00)
--- NOTE | 2020-12-31 08:55 | XRAY ---
Indication: Short of breath and weakness. Comparison: April 11, 2019. PA/lateral chest demonstrates new diffuse right lung airspace disease with moderate effusion. Stable left base discoid atelectasis/scarring and costophrenic angle blunting. 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 Bony thorax intact again with osteopenia, degenerative changes, and remote T11 fracture.
--- NOTE | 2020-12-31 10:07 | ECHO ---
DATE: 12/30/2020 INDICATION: Shortness of breath. A transthoracic echocardiograph examination with color Doppler was done. IMPRESSION: 1. MILD HYPOKINESIA OF THE ANTERIOR SEPTAL WALL WITH ESTIMATED LEFT VENTRICULAR EJECTION FRACTION AROUND 50%. 2. TRACE MITRAL REGURGITATION. 3. TRACE TRICUSPID REGURGITATION WITH RIGHT VENTRICULAR SYSTOLIC PRESSURE OF 22 MM HG. 4. LEFT VENTRICULAR HYPERTROPHY. 5. MILDLY DILATED LEFT ATRIUM. 6. SCLEROTIC AORTIC VALVE. 7. PACEMAKER ELECTRODE IN THE RIGHT VENTRICLE. The left ventricle was visualized and demonstrated mild hypokinesia of the anterior septal wall with left ventricular ejection fraction of 50%. There is mild left ventricular hypertrophy. The mitral valve was thickened, but opens adequately. There is trace mitral regurgitation. The left atrium is mildly enlarged. The aortic valve is sclerotic. There is no significant gradient across the left ventricular outflow tract. Right-sided chambers are normal. There is trace tricuspid regurgitation with right ventricular systolic pressure of 32 mm Hg. There is also a pacemaker electrode in the right ventricle.
[2020-12-31] MEDS: Prozac 20 MG PO SCH (10:52)
--- NOTE | 2020-12-31 11:01 | XRAY ---
Indication: Acute respiratory infection. Obstruction uropathy. Comparison: Taken earlier in the day. Portable chest less inflated again with diffuse right lung airspace disease and moderate right effusion. New small left effusion and borderline cardiomegaly.
[2020-12-31] MEDS ORDERED: Lasix 40 MG/4 ML IV ONE (11:58)
[2020-12-31] MEDS: Zithromax 500 MG/ 250 ML NaCl Premix 500 MG/250 ML IVPB IV SCH (12:21)
[2020-12-31] MEDS: Coumadin 5 MG PO SCH (17:00)
[2020-12-31] MEDS: PATIENT OWN MEDICATION PO SCH (21:02)
[2020-12-31] MEDS: ROCEPHIN 1 Gm-D5w 50 ml Bag** 1 G/50 ML IVPB IV SCH (21:03)
[2020-12-31] MEDS: HUMULIN R SQ PRN (21:09)
[2021-01-01 05:11] LABS: Hematocrit 30.3 % (42-50); Hemoglobin 9.4 gm/dl (12.5-18.0); Mean Cell Volume 102.4 fl (78-100); Mean Corpuscular Hemoglobin 31.8 pg (26-32); Mean Platelet Volume 10.3 fl (7.5-11.0); Platelet Count 305 K/mm3 (150-450); Red Blood Count 2.96 M/mm3 (4.1-5.6); Red Cell Distribution Width 12.6 % (11.5-14.0); White Blood Count 8.3 K/mm3 (4.0-10.5)
[2021-01-01 05:16] LABS: INR 3.36 (0.8-3.0); PROTIME 39.6 SECONDS (9.4-12.5)
[2021-01-01 05:58] LABS: ANION GAP 12.1 MEQ/L (5-15); Calcium 8.5 mg/dL (8.4-10.2); Creatinine 1 1.85 mg/dL (0.66-1.25); EST GLOMERULAR FILTRATION RATE 37.2 ML/MIN; Potassium 3.6 mmol/L (3.5-5.1)
[2021-01-01] MEDS: APRESOLINE 20 MG/ML INJ IV PRN (08:02)
[2021-01-01] MEDS ORDERED: PHARMACY DOSING REQUEST MC ONE (09:45)
[2021-01-01] MEDS: Lasix 40 MG/4 ML IV SCH (09:56)
[2021-01-01] MEDS: Zithromax 500 MG/ 250 ML NaCl Premix 500 MG/250 ML IVPB IV SCH (09:56)
[2021-01-01] MEDS: Prozac 20 MG PO SCH (10:02)
[2021-01-01] MEDS: HUMULIN R SQ PRN (11:38)
[2021-01-01 12:51] VITALS: BP 142/62; PULSE 67; O2SAT 91
[2021-01-01] MEDS ORDERED: Coumadin 1 MG*** 1 MG, Coumadin 3 MG*** 3 MG PO SCH ×2 (18:00)
[2021-01-02] MEDS ORDERED: Coumadin 5 MG PO SCH (18:00)
--- NOTE | 2021-01-09 12:37 | PCM.DS ---
Discharge Summary Date of Admission: 12/28/20 12:50 Date of Discharge: 01/01/2021 Admitting Physician: JOHN SONI Primary Care Provider: JOHN SONI Allergies Allergies No Known Drug Allergies Allergy (Verified 12/26/20 17:24) Hospital Summary - Hospital Course Hospital Course: Pt. admitted for acute renal failure, malnutrition, dehydration, and generalized weakness. Pt. was gently hydrated while withholding his glucophage and diuretic but did go into mild heart failure for which he was resumed on his diuretic. Pt. had ivf stopped but still required supplemental oxygen. Pt. labs stabilized and supplemental oxygen stabilized, the patient was then felt he would benefit from therapy, supplemental oxygenation and continued monitering but no longer needed acute care, he was discharged to [facility] bed - Vitals & Intake/Output Vital Signs: Vital Signs Temperature 98.0 F 01/04/21 08:00 Pulse Rate 90 01/04/21 08:00 Respiratory Rate 20 01/04/21 08:00 Blood Pressure 167/74 01/04/21 08:00 O2 Sat by Pulse Oximetry 93 L 01/04/21 09:08 Intake & Output: Intake & Output 01/02/21 01/03/21 01/04/21 01/05/21 11:59 11:59 11:59 11:59 Intake Total 730 1107 600 Output Total 800 1500 Balance -70 1107 -900 Weight 74.9 kg 74.2 kg 74.1 kg - Lab Result Diagrams: 01/01/21 04:35 01/01/21 04:35 Lab Results-Last 24 Hrs: Lab Results-Last 24 Hours 01/03/21 01/04/21 01/04/21 Range/Units 20:44 05:30 05:30 WBC 7.7 (4.0-10.5) K/mm3 RBC 2.91 L (4.1-5.6) M/mm3 Hgb 9.1 L (12.5-18.0) gm/dl Hct 30.4 L (42-50) % MCV 104.5 H (78-100) fl MCH 31.3 (26-32) pg MCHC 29.9 L (32-36) g/dl RDW 12.4 (11.5-14.0) % Plt Count 366 (150-450) K/mm3 MPV 10.0 (7.5-11.0) fl PT 48.3 H (9.4-12.5) SECONDS INR 4.09 H (0.8-3.0) Sodium (137-145) mmol/L Potassium (3.5-5.1) mmol/L Chloride (98-107) mmol/L Carbon Dioxide (22-30) mmol/L Anion Gap (5-15) MEQ/L BUN (9-20) mg/dL Creatinine (0.66-1.25) mg/dL Estimated GFR ML/MIN Glucose (74-106) mg/dL POC Glucometer 244 H (74 to 106) mg/dL Calcium (8.4-10.2) mg/dL 01/04/21 01/04/21 01/04/21 Range/Units 05:30 07:00 11:13 WBC (4.0-10.5) K/mm3 RBC (4.1-5.6) M/mm3 Hgb (12.5-18.0) gm/dl Hct (42-50) % MCV (78-100) fl MCH (26-32) pg MCHC (32-36) g/dl RDW (11.5-14.0) % Plt Count (150-450) K/mm3 MPV (7.5-11.0) fl PT (9.4-12.5) SECONDS INR (0.8-3.0) Sodium 141 (137-145) mmol/L Potassium 3.8 (3.5-5.1) mmol/L Chloride 104 (98-107) mmol/L Carbon Dioxide 29 (22-30) mmol/L Anion Gap 11.0 (5-15) MEQ/L BUN 23 H (9-20) mg/dL Creatinine 1.83 H (0.66-1.25) mg/dL Estimated GFR 37.7 ML/MIN Glucose 78 (74-106) mg/dL POC Glucometer 80 344 H (74 to 106) mg/dL Calcium 8.5 (8.4-10.2) mg/dL 01/04/21 Range/Units 15:47 WBC (4.0-10.5) K/mm3 RBC (4.1-5.6) M/mm3 Hgb (12.5-18.0) gm/dl Hct (42-50) % MCV (78-100) fl MCH (26-32) pg MCHC (32-36) g/dl RDW (11.5-14.0) % Plt Count (150-450) K/mm3 MPV (7.5-11.0) fl PT (9.4-12.5) SECONDS INR (0.8-3.0) Sodium (137-145) mmol/L Potassium (3.5-5.1) mmol/L Chloride (98-107) mmol/L Carbon Dioxide (22-30) mmol/L Anion Gap (5-15) MEQ/L BUN (9-20) mg/dL Creatinine (0.66-1.25) mg/dL Estimated GFR ML/MIN Glucose (74-106) mg/dL POC Glucometer 60 L (74 to 106) mg/dL Calcium (8.4-10.2) mg/dL Micro Results-Entire Visit: Accuchecks Date 01/04/21 Date 12/30/20 - Radiology Exams Ordered Rad Exams-Entire Visit: Radiology Procedures Category Date Time Status CHEST 2 VIEWS (PA AND LAT) Routine Exams 01/03/21 06:43 Completed - Procedures and Test Procedures and Tests throughout Hospitalization: Therapy Orders & Screens 01/01/21 12:54 OT Eval and Treat (MD Order) ONCE Comment: Consulting Provider: JOHN SONI Physician Instructions: Reason For Exam: DECONDITIONING R/T CHF, PROSTATITIS Evaluate: Yes Treat: Yes Diagnosis: DECONDITIONING R/T CHF, PROSTATITIS PT Eval & Treat (MD Order) ONCE Reason for Eval:: DECONDITIONING R/T CHF, PROSTATITIS Diagnosis: DECONDITIONING R/T CHF, PROSTATITIS Oxygen Nasal Cannula 4 lpm Comment: Diagnosis: acute renal injury, obstructive uropathy, dehydration, malnourishment, pros 01/01/21 15:35 PT Clarification Order ROUTINE Comment: Physician Instructions: Reason For Exam: PT Clarification: PT. TO RX 5X/WK TO ADDRESS EXERTION TOLERANCE TRAINING, FUNCTIONAL STRENGTHENING, BALANCE TRAINING AND PT. RE: SAFETY AWARENESS AND PROPER BREATHING TO MAXIMIZE FUNCTIONAL INDEPENDENCE FOR SAFE RETURN HOME. 01/02/21 19:36 OT Clarification Order ONCE Comment: Physician Instructions: Reason For Exam: OT Clarification: Occupational Therapy evaluation completed 01/02/21. Mr. Porter refused further skilled OT intervention at this time. Evaluation-only per patient request. Will continue to coordinate with IDT should Mr. Yan change his mind or further need arise. Discharge Exam General Appearance: no apparent distress, alert Neurologic Exam: alert, oriented x 3, cooperative, normal mood/affect, nml cerebellar function, sensation nml, No motor deficits Eye Exam: PERRL, EOMI, eyes nml inspection Ears, Nose, Throat Exam: normal ENT inspection, pharynx normal, moist mucous membranes Neck Exam: normal inspection, non-tender, supple, full range of motion Respiratory Exam: normal breath sounds, lungs clear, No respiratory distress Cardiovascular Exam: regular rate/rhythm, normal heart sounds Gastrointestinal/Abdomen Exam: soft, No tenderness, No mass Male Genitalia Exam: deferred Rectal Exam: deferred Back Exam: normal inspection, normal range of motion, No CVA tenderness, No vertebral tenderness Extremity Exam: normal inspection, normal range of motion Skin Exam: normal color, warm, dry Final Diagnosis/Problem List - Final Discharge Diagnosis/Problem (1) Dyspnea Status: Acute Code(s): R06.00 - DYSPNEA, UNSPECIFIED (2) Acute renal injury Status: Acute Code(s): N17.9 - ACUTE KIDNEY FAILURE, UNSPECIFIED (3) Dehydration Status: Acute Code(s): E86.0 - DEHYDRATION (4) CHF (congestive heart failure) Status: Acute Code(s): I50.9 - HEART FAILURE, UNSPECIFIED (5) Generalized weakness Status: Acute Code(s): R53.1 - WEAKNESS (6) Hypoxia Status: Acute Code(s): R09.02 - HYPOXEMIA - Discharge Discharge Date: 01/01/21 Disposition: Swing Bed @ [facility] Condition: Stable Prescriptions: No Action quiNINE sulfate [Quinine Sulfate] 600 mg PO HS Furosemide 40 mg [Lasix 40 MG] 40 mg PO QAM Warfarin Sodium 4 mg PO DAILY #0 Metformin HCl 850 mg [Glucophage 850 MG] 850 mg PO DAILY #30 tablet Fluoxetine HCl 20 mg [Prozac 20 MG] 20 mg PO DAILY #30 cap Follow up with: JOHN SONI [Primary Care Provider] -
== END 2021-01-01 12:50 | disposition swing bed (61) | DRG 204 ==
LOC: ED 17:12 → MED SURG 23:13 → OBSVTOIN 12-28 20:10
PROVIDERS: ADMIT Family Medicine; ATTEND Family Medicine
DX: R06.00 Dyspnea, unspecified (principal); E46 Unspecified protein-calorie malnutrition; N17.9 Acute kidney failure, unspecified; E86.0 Dehydration; Z79.899 Other long term (current) drug therapy; Z79.01 Long term (current) use of anticoagulants; E11.9 Type 2 diabetes mellitus without complications; N41.9 Inflammatory disease of prostate, unspecified; N13.9 Obstructive and reflux uropathy, unspecified; I50.9 Heart failure, unspecified; R53.1 Weakness; F32.9 Major depressive disorder, single episode, unspecified; Z20.828 Contact with and (suspected) exposure to other viral communicable diseases; R09.02 Hypoxemia; Z86.711 Personal history of pulmonary embolism
CPT/HCPCS: 36000; 36415; 51702; 71045; 71046; 74176; 80048; 80053; 81001; 82947; 83036; 85025; 85027; 85610; 85730; 87086; 93041; 93306; 94760; 96360; 96361; 96365; 97110; 97162; 97530; 99285; G0378; U0003; J0360; J0456; J0696; J1815; J1940; A9270-GY

== ENCOUNTER 2021-01-01 09:35 | Inpatient (IN) | payer MEDICARE, OTHER ==
[2021-01-01] MEDS ORDERED: APRESOLINE 20 MG/ML INJ IV PRN (12:54)
[2021-01-01] MEDS ORDERED: HUMULIN R SQ PRN (12:54)
[2021-01-01] MEDS ORDERED: Aplisol ID ONE ×2 (14:00→14:19)
[2021-01-01] MEDS ORDERED: Coumadin 1 MG*** 1 MG, Coumadin 3 MG*** 3 MG PO SCH ×2 (18:00)
[2021-01-01] MEDS: PATIENT OWN MEDICATION PO SCH (21:29)
[2021-01-01] MEDS: ROCEPHIN 1 Gm-D5w 50 ml Bag** 1 G/50 ML IVPB IV SCH (21:30)
[2021-01-01] MEDS: HUMULIN R SQ PRN (21:30)
[2021-01-02 05:03] LABS: Hemoglobin 9.3 gm/dl (12.5-18.0); Mean Cell Volume 103.4 fl (78-100); Mean Corpuscular Hemoglobin 32.1 pg (26-32); Mean Platelet Volume 9.7 fl (7.5-11.0); Platelet Count 329 K/mm3 (150-450); Red Cell Distribution Width 12.7 % (11.5-14.0); White Blood Count 8.1 K/mm3 (4.0-10.5)
[2021-01-02 05:19] LABS: ANION GAP 12.5 MEQ/L (5-15); Calcium 8.5 mg/dL (8.4-10.2); Creatinine 1 2.09 mg/dL (0.66-1.25); EST GLOMERULAR FILTRATION RATE 32.3 ML/MIN; Potassium 3.7 mmol/L (3.5-5.1)
[2021-01-02 10:45] LABS: INR 3.25 (0.8-3.0); PROTIME 38.3 SECONDS (9.4-12.5)
[2021-01-02] MEDS: Lasix 40 MG/4 ML IV SCH (10:53)
[2021-01-02] MEDS: Prozac 20 MG PO SCH (10:54)
[2021-01-02] MEDS: Zithromax 500 MG/ 250 ML NaCl Premix 500 MG/250 ML IVPB IV SCH (10:54)
[2021-01-02] MEDS ORDERED: Coumadin 5 MG PO SCH (18:00)
[2021-01-02] MEDS: PATIENT OWN MEDICATION PO SCH (21:36)
[2021-01-02] MEDS: ROCEPHIN 1 Gm-D5w 50 ml Bag** 1 G/50 ML IVPB IV SCH (21:36)
[2021-01-03 05:29] LABS: Hematocrit 29.6 % (42-50); Hemoglobin 9.2 gm/dl (12.5-18.0); Mean Cell Volume 103.9 fl (78-100); Mean Corpuscular Hemoglobin 32.3 pg (26-32); Mean Corpuscular Hgb Concent. 31.1 g/dl (32-36); Mean Platelet Volume 9.8 fl (7.5-11.0); Platelet Count 345 K/mm3 (150-450); Red Blood Count 2.85 M/mm3 (4.1-5.6); Red Cell Distribution Width 12.6 % (11.5-14.0); White Blood Count 7.4 K/mm3 (4.0-10.5)
[2021-01-03 05:58] LABS: ANION GAP 10.5 MEQ/L (5-15); Calcium 8.5 mg/dL (8.4-10.2); Creatinine 1 1.99 mg/dL (0.66-1.25); EST GLOMERULAR FILTRATION RATE 34.2 ML/MIN; Potassium 3.8 mmol/L (3.5-5.1)
[2021-01-03 06:19] LABS: INR 3.91 (0.8-3.0); PROTIME 46.1 SECONDS (9.4-12.5)
--- NOTE | 2021-01-03 09:07 | XRAY ---
Exam: AP and lateral upright sitting chest films in wheelchair from 01/03/2021. Comparison: Two-view chest from 12/31/2020. Indication: 85-year-old male with CHF. Findings: The lungs are again noted to be hyperinflated with an increased AP diameter of the chest and a prominent retrosternal airspace. The heart size appears within normal limits. Surgical clips and sternal wires are seen suggestive of prior CABG. A left-sided cardiac pacemaker is seen with 2 transvenous leads in unchanged position. The leads appear intact. I note diffuse mixed alveolar/interstitial opacities throughout the right lung with only relative sparing of the superior right lung apex. This is unchanged. There is also at least a mild right pleural effusion which tracks up the right posterior lateral pleural surface representing no change. No pneumothorax is seen. The left lung reveals some focal areas of chronic scarring/atelectasis at the lateral left midlung field and left infrahilar projection. In addition, there is either some vascular crowding/congestion, scarring, or mild airspace disease overlying the left hilum. This is relatively similar to 12/31/2020. The remainder of the left lung appears clear. Osteopenia, dorsal kyphosis, degenerative changes within the spine, and a marked anterior wedge compression fracture deformity of a lower thoracic vertebra are again seen. An IVC filter is partially seen. Impression: 1. There has been no significant interval change in the appearance of the chest as compared to 12/31/2020. See above.
[2021-01-03] MEDS: Lasix 40 MG/4 ML IV SCH (09:16)
[2021-01-03] MEDS: Zithromax 500 MG/ 250 ML NaCl Premix 500 MG/250 ML IVPB IV SCH (09:16)
[2021-01-03] MEDS: Prozac 20 MG PO SCH (09:17)
[2021-01-03] MEDS: HUMULIN R SQ PRN ×2 (11:47→22:55)
[2021-01-03] MEDS: PATIENT OWN MEDICATION PO SCH (21:55)
[2021-01-03] MEDS: ROCEPHIN 1 Gm-D5w 50 ml Bag** 1 G/50 ML IVPB IV SCH (21:55)
[2021-01-04 06:04] LABS: Hematocrit 30.4 % (42-50); Hemoglobin 9.1 gm/dl (12.5-18.0); Mean Cell Volume 104.5 fl (78-100); Mean Corpuscular Hemoglobin 31.3 pg (26-32); Mean Corpuscular Hgb Concent. 29.9 g/dl (32-36); Platelet Count 366 K/mm3 (150-450); Red Blood Count 2.91 M/mm3 (4.1-5.6); Red Cell Distribution Width 12.4 % (11.5-14.0); White Blood Count 7.7 K/mm3 (4.0-10.5)
[2021-01-04 06:46] LABS: INR 4.09 (0.8-3.0); PROTIME 48.3 SECONDS (9.4-12.5)
[2021-01-04 06:54] LABS: Calcium 8.5 mg/dL (8.4-10.2); Creatinine 1 1.83 mg/dL (0.66-1.25); EST GLOMERULAR FILTRATION RATE 37.7 ML/MIN; Potassium 3.8 mmol/L (3.5-5.1)
[2021-01-04] MEDS: Lasix 40 MG/4 ML IV SCH (09:29)
[2021-01-04] MEDS: Prozac 20 MG PO SCH (09:30)
[2021-01-04] MEDS: Zithromax 500 MG/ 250 ML NaCl Premix 500 MG/250 ML IVPB IV SCH (09:30)
[2021-01-04] MEDS: HUMULIN R SQ PRN (12:03)
--- NOTE | 2021-01-04 17:11 | PCM.DS ---
Discharge Summary Date of Admission: 12/28/20 12:50 Date of Discharge: 01/01/2021 Admitting Physician: JOHN SONI Primary Care Provider: JOHN SONI Allergies Allergies No Known Drug Allergies Allergy (Verified 12/26/20 17:24) Hospital Summary - Hospital Course Hospital Course: Pt. admitted for acute renal failure, malnutrition, dehydration, and generalized weakness. Pt. was gently hydrated while withholding his glucophage and diuretic but did go into mild heart failure for which he was resumed on his diuretic. Pt. had ivf stopped but still required supplemental oxygen. Pt. labs stabilized and supplemental oxygen stabilized, the patient was then felt he would benefit from therapy, supplemental oxygenation and continued monitering but no longer needed acute care, [facility] - Vitals & Intake/Output Vital Signs: Vital Signs Temperature 98.0 F 01/04/21 08:00 Pulse Rate 90 01/04/21 08:00 Respiratory Rate 20 01/04/21 08:00 Blood Pressure 167/74 01/04/21 08:00 O2 Sat by Pulse Oximetry 93 L 01/04/21 09:08 Intake & Output: Intake & Output 01/02/21 01/03/21 01/04/21 01/05/21 11:59 11:59 11:59 11:59 Intake Total 730 1107 600 Output Total 800 1500 Balance -70 1107 -900 Weight 74.9 kg 74.2 kg 74.1 kg - Lab Result Diagrams: 01/04/21 05:30 01/04/21 05:30 Lab Results-Last 24 Hrs: Lab Results-Last 24 Hours 01/03/21 01/04/21 01/04/21 Range/Units 20:44 05:30 05:30 WBC 7.7 (4.0-10.5) K/mm3 RBC 2.91 L (4.1-5.6) M/mm3 Hgb 9.1 L (12.5-18.0) gm/dl Hct 30.4 L (42-50) % MCV 104.5 H (78-100) fl MCH 31.3 (26-32) pg MCHC 29.9 L (32-36) g/dl RDW 12.4 (11.5-14.0) % Plt Count 366 (150-450) K/mm3 MPV 10.0 (7.5-11.0) fl PT 48.3 H (9.4-12.5) SECONDS INR 4.09 H (0.8-3.0) Sodium (137-145) mmol/L Potassium (3.5-5.1) mmol/L Chloride (98-107) mmol/L Carbon Dioxide (22-30) mmol/L Anion Gap (5-15) MEQ/L BUN (9-20) mg/dL Creatinine (0.66-1.25) mg/dL Estimated GFR ML/MIN Glucose (74-106) mg/dL POC Glucometer 244 H (74 to 106) mg/dL Calcium (8.4-10.2) mg/dL 01/04/21 01/04/21 01/04/21 Range/Units 05:30 07:00 11:13 WBC (4.0-10.5) K/mm3 RBC (4.1-5.6) M/mm3 Hgb (12.5-18.0) gm/dl Hct (42-50) % MCV (78-100) fl MCH (26-32) pg MCHC (32-36) g/dl RDW (11.5-14.0) % Plt Count (150-450) K/mm3 MPV (7.5-11.0) fl PT (9.4-12.5) SECONDS INR (0.8-3.0) Sodium 141 (137-145) mmol/L Potassium 3.8 (3.5-5.1) mmol/L Chloride 104 (98-107) mmol/L Carbon Dioxide 29 (22-30) mmol/L Anion Gap 11.0 (5-15) MEQ/L BUN 23 H (9-20) mg/dL Creatinine 1.83 H (0.66-1.25) mg/dL Estimated GFR 37.7 ML/MIN Glucose 78 (74-106) mg/dL POC Glucometer 80 344 H (74 to 106) mg/dL Calcium 8.5 (8.4-10.2) mg/dL 01/04/21 Range/Units 15:47 WBC (4.0-10.5) K/mm3 RBC (4.1-5.6) M/mm3 Hgb (12.5-18.0) gm/dl Hct (42-50) % MCV (78-100) fl MCH (26-32) pg MCHC (32-36) g/dl RDW (11.5-14.0) % Plt Count (150-450) K/mm3 MPV (7.5-11.0) fl PT (9.4-12.5) SECONDS INR (0.8-3.0) Sodium (137-145) mmol/L Potassium (3.5-5.1) mmol/L Chloride (98-107) mmol/L Carbon Dioxide (22-30) mmol/L Anion Gap (5-15) MEQ/L BUN (9-20) mg/dL Creatinine (0.66-1.25) mg/dL Estimated GFR ML/MIN Glucose (74-106) mg/dL POC Glucometer 60 L (74 to 106) mg/dL Calcium (8.4-10.2) mg/dL Micro Results-Entire Visit: Accuchecks Date 01/04/21 Date 12/30/20 - Radiology Exams Ordered Rad Exams-Entire Visit: Radiology Procedures Category Date Time Status CHEST 2 VIEWS (PA AND LAT) Routine Exams 01/03/21 06:43 Completed - Procedures and Test Procedures and Tests throughout Hospitalization: Therapy Orders & Screens 01/01/21 12:54 OT Eval and Treat (MD Order) ONCE Comment: Consulting Provider: JOHN SONI Physician Instructions: Reason For Exam: DECONDITIONING R/T CHF, PROSTATITIS Evaluate: Yes Treat: Yes Diagnosis: DECONDITIONING R/T CHF, PROSTATITIS PT Eval & Treat (MD Order) ONCE Reason for Eval:: DECONDITIONING R/T CHF, PROSTATITIS Diagnosis: DECONDITIONING R/T CHF, PROSTATITIS Oxygen Nasal Cannula 4 lpm Comment: Diagnosis: acute renal injury, obstructive uropathy, dehydration, malnourishment, pros 01/01/21 15:35 PT Clarification Order ROUTINE Comment: Physician Instructions: Reason For Exam: PT Clarification: PT. TO RX 5X/WK TO ADDRESS EXERTION TOLERANCE TRAINING, FUNCTIONAL STRENGTHENING, BALANCE TRAINING AND PT. RE: SAFETY AWARENESS AND PROPER BREATHING TO MAXIMIZE FUNCTIONAL INDEPENDENCE FOR SAFE RETURN HOME. 01/02/21 19:36 OT Clarification Order ONCE Comment: Physician Instructions: Reason For Exam: OT Clarification: Occupational Therapy evaluation completed 01/02/21. Mr. Porter refused further skilled OT intervention at this time. Evaluation-only per patient request. Will continue to coordinate with IDT should Mr. Yan change his mind or further need arise. Discharge Exam General Appearance: no apparent distress, alert Neurologic Exam: alert, oriented x 3, cooperative, normal mood/affect, nml cerebellar function, sensation nml, No motor deficits Eye Exam: PERRL, EOMI, eyes nml inspection Ears, Nose, Throat Exam: normal ENT inspection, pharynx normal, moist mucous membranes Neck Exam: normal inspection, non-tender, supple, full range of motion Respiratory Exam: normal breath sounds, lungs clear, No respiratory distress Cardiovascular Exam: regular rate/rhythm, normal heart sounds Gastrointestinal/Abdomen Exam: soft, No tenderness, No mass Male Genitalia Exam: deferred Rectal Exam: deferred Back Exam: normal inspection, normal range of motion, No CVA tenderness, No vert ebral tenderness Extremity Exam: normal inspection, normal range of motion Skin Exam: normal color, warm, dry Final Diagnosis/Problem List - Final Discharge Diagnosis/Problem (1) Hypoxia Current Visit: Yes Status: Acute Code(s): R09.02 - HYPOXEMIA (2) Acute renal injury Current Visit: No Status: Acute Code(s): N17.9 - ACUTE KIDNEY FAILURE, UNSPECIFIED (3) CHF (congestive heart failure) Current Visit: No Status: Acute Code(s): I50.9 - HEART FAILURE, UNSPECIFIED (4) Dehydration Current Visit: No Status: Acute Code(s): E86.0 - DEHYDRATION (5) Dyspnea Current Visit: No Status: Acute Code(s): R06.00 - DYSPNEA, UNSPECIFIED (6) Generalized weakness Current Visit: No Status: Acute Code(s): R53.1 - WEAKNESS - Discharge Discharge Date: 01/01/21 Disposition: Swing Bed @ [facility] Condition: Stable Prescriptions: No Action Metformin HCl 1000 mg [Glucophage 1000 MG] 1,000 mg PO BID quiNINE sulfate [Quinine Sulfate] 600 mg PO HS Furosemide 40 mg [Lasix 40 MG] 40 mg PO QAM Warfarin Sodium 2 mg [Coumadin 2 MG] 5 mg PO QPM Warfarin Sodium 4 mg PO MO Follow up with: JOHN SONI [Primary Care Provider] - Forms: Patient Portal Information
[2021-01-04] MEDS: ROCEPHIN 1 Gm-D5w 50 ml Bag** 1 G/50 ML IVPB IV SCH (21:49)
[2021-01-04] MEDS: PATIENT OWN MEDICATION PO SCH (21:50)
[2021-01-05 06:23] LABS: INR 2.36 (0.8-3.0); PROTIME 27.8 SECONDS (9.4-12.5)
[2021-01-05 06:24] LABS: Hematocrit 30.4 % (42-50); Hemoglobin 9.2 gm/dl (12.5-18.0); Mean Cell Volume 104.1 fl (78-100); Mean Corpuscular Hemoglobin 31.5 pg (26-32); Mean Corpuscular Hgb Concent. 30.3 g/dl (32-36); Mean Platelet Volume 9.8 fl (7.5-11.0); Platelet Count 363 K/mm3 (150-450); Red Blood Count 2.92 M/mm3 (4.1-5.6); Red Cell Distribution Width 12.3 % (11.5-14.0); White Blood Count 7.2 K/mm3 (4.0-10.5)
[2021-01-05 06:49] LABS: ANION GAP 9.3 MEQ/L (5-15); Calcium 8.4 mg/dL (8.4-10.2); Creatinine 1 1.87 mg/dL (0.66-1.25); EST GLOMERULAR FILTRATION RATE 36.7 ML/MIN; Potassium 3.9 mmol/L (3.5-5.1)
[2021-01-05] MEDS ORDERED: Glucophage 500 MG PO SCH (10:00)
[2021-01-05] MEDS: Zithromax 500 MG/ 250 ML NaCl Premix 500 MG/250 ML IVPB IV SCH (10:44)
[2021-01-05] MEDS: Lasix 40 MG/4 ML IV SCH (10:45)
[2021-01-05] MEDS: Prozac 20 MG PO SCH (10:45)
[2021-01-05] MEDS: Glucophage 500 MG PO SCH ×2 (10:45→17:34)
[2021-01-05] MEDS: MEDICATION ON HOLD MC SCH ×2 (10:53→10:54)
[2021-01-05] MEDS: HUMULIN R SQ PRN (11:19)
[2021-01-05] MEDS ORDERED: Coumadin 5 MG PO SCH ×2 (16:00→18:00)
[2021-01-05] MEDS: PATIENT OWN MEDICATION PO SCH (21:34)
[2021-01-06 05:23] LABS: INR 1.75 (0.8-3.0); PROTIME 20.7 SECONDS (9.4-12.5)
[2021-01-06 05:36] LABS: Hematocrit 30.6 % (42-50); Hemoglobin 9.3 gm/dl (12.5-18.0); Mean Cell Volume 103.7 fl (78-100); Mean Corpuscular Hemoglobin 31.5 pg (26-32); Mean Corpuscular Hgb Concent. 30.4 g/dl (32-36); Mean Platelet Volume 9.9 fl (7.5-11.0); Platelet Count 389 K/mm3 (150-450); Red Blood Count 2.95 M/mm3 (4.1-5.6); Red Cell Distribution Width 12.3 % (11.5-14.0); White Blood Count 6.9 K/mm3 (4.0-10.5)
[2021-01-06 06:24] LABS: ANION GAP 10.4 MEQ/L (5-15); Calcium 8.6 mg/dL (8.4-10.2); Creatinine 1 2.01 mg/dL (0.66-1.25); EST GLOMERULAR FILTRATION RATE 33.8 ML/MIN; Potassium 4.1 mmol/L (3.5-5.1)
[2021-01-06] MEDS: Prozac 20 MG PO SCH (09:39)
[2021-01-06] MEDS: Glucophage 500 MG PO SCH ×2 (09:39→18:23)
[2021-01-06] MEDS: Lasix 40 MG/4 ML IV SCH (09:40)
[2021-01-06] MEDS: Zithromax 500 MG/ 250 ML NaCl Premix 500 MG/250 ML IVPB IV SCH (10:29)
[2021-01-06] MEDS: HUMULIN R SQ PRN (12:28)
[2021-01-06] MEDS ORDERED: Coumadin 1 MG*** 1 MG, Coumadin 3 MG*** 3 MG PO SCH ×2 (18:00)
[2021-01-06] MEDS: PATIENT OWN MEDICATION PO SCH (21:10)
[2021-01-07 05:15] LABS: INR 4.43 (0.8-3.0); PROTIME 52.3 SECONDS (9.4-12.5)
[2021-01-07] MEDS: Glucophage 500 MG PO SCH ×2 (08:28→17:14)
[2021-01-07 09:46] LABS: ANION GAP 11.4 MEQ/L (5-15); Calcium 8.6 mg/dL (8.4-10.2); Creatinine 1 2.01 mg/dL (0.66-1.25); EST GLOMERULAR FILTRATION RATE 33.8 ML/MIN; Potassium 4.1 mmol/L (3.5-5.1)
[2021-01-07] MEDS: Lasix 40 MG/4 ML IV SCH (09:55)
[2021-01-07] MEDS: Zithromax 500 MG/ 250 ML NaCl Premix 500 MG/250 ML IVPB IV SCH (09:59)
[2021-01-07] MEDS ORDERED: MEDICATION ON HOLD MC SCH (10:00)
[2021-01-07] MEDS: Prozac 20 MG PO SCH (10:02)
[2021-01-07] MEDS: PATIENT OWN MEDICATION PO SCH (23:10)
[2021-01-08 05:49] LABS: INR 1.31 (0.8-3.0); PROTIME 15.4 SECONDS (9.4-12.5)
[2021-01-08 06:24] LABS: ANION GAP 9.9 MEQ/L (5-15); Calcium 8.6 mg/dL (8.4-10.2); Creatinine 1 2.07 mg/dL (0.66-1.25); EST GLOMERULAR FILTRATION RATE 32.7 ML/MIN; Potassium 4.4 mmol/L (3.5-5.1)
[2021-01-08 07:36] VITALS: BP 162/71; PULSE 61; O2SAT 92
[2021-01-08] MEDS: Glucophage 500 MG PO SCH (08:27)
[2021-01-08] MEDS: Prozac 20 MG PO SCH (10:38)
[2021-01-08] MEDS: Zithromax 500 MG/ 250 ML NaCl Premix 500 MG/250 ML IVPB IV SCH (10:38)
[2021-01-08] MEDS: Lasix 40 MG/4 ML IV SCH (10:38)
--- NOTE | 2021-01-15 06:42 | PCM.DS ---
Discharge Summary Date of Admission: 01/01/21 12:50 Admitting Physician: JOHN SONI Primary Care Provider: JOHN SONI Allergies Allergies No Known Drug Allergies Allergy (Verified 12/26/20 17:24) Hospital Summary - Vitals & Intake/Output Vital Signs: Vital Signs Temperature 98.2 F 01/08/21 07:35 Pulse Rate 61 01/08/21 07:35 Respiratory Rate 16 01/08/21 07:35 Blood Pressure 162/71 01/08/21 07:35 O2 Sat by Pulse Oximetry 92 L 01/08/21 08:05 - Lab Result Diagrams: 01/06/21 04:51 01/08/21 05:15 - Procedures and Test Procedures and Tests throughout Hospitalization: Therapy Orders & Screens 01/01/21 12:54 OT Eval and Treat ( Order) ONCE Comment: Consulting Provider: JOHN SONI Physician Instructions: Reason For Exam: DECONDITIONING R/T CHF, PROSTATITIS Evaluate: Yes Treat: Yes Diagnosis: DECONDITIONING R/T CHF, PROSTATITIS PT Eval & Treat ( Order) ONCE Reason for Eval:: DECONDITIONING R/T CHF, PROSTATITIS Diagnosis: DECONDITIONING R/T CHF, PROSTATITIS Oxygen Nasal Cannula 4 lpm Comment: Diagnosis: acute renal injury, obstructive uropathy, dehydration, malnou rishment, pros 01/01/21 15:35 PT Clarification Order ROUTINE Comment: Physician Instructions: Reason For Exam: PT Clarification: PT. TO RX 5X/WK TO ADDRESS EXERTION TOLERANCE TRAINING, FUNCTIONAL STRENGTHENING, BALANCE TRAINING AND PT. RE: SAFETY AWARENESS AND PROPER B REATHING TO MAXIMIZE FUNCTIONAL INDEPENDENCE FOR SAFE RETURN HOME. 01/02/21 19:36 OT Clarification Order ONCE Comment: Physician Instructions: Reason For Exam: OT Clarification: Occupational Therapy evaluation completed 01/02/21. Mr. Proter refused further skilled OT intervention at this time. Evaluation-only per patient request. Will continue to coordinate with IDT should Mr. Yan change his mind or further need arise. Final Diagnosis/Problem List - Final Discharge Diagnosis/Problem (1) Acute renal injury Status: Acute Code(s): N17.9 - ACUTE KIDNEY FAILURE, UNSPECIFIED (2) Dehydration Status: Acute Code(s): E86.0 - DEHYDRATION (3) CHF (congestive heart failure) Status: Acute Code(s): I50.9 - HEART FAILURE, UNSPECIFIED (4) Hypoxia Status: Acute Code(s): R09.02 - HYPOXEMIA (5) Dyspnea Status: Acute Code(s): R06.00 - DYSPNEA, UNSPECIFIED (6) Generalized weakness Status: Acute Code(s): R53.1 - WEAKNESS - Discharge Disposition: Swing Bed @ [facility] Condition: Stable Prescriptions: New Metformin HCl 850 mg [Glucophage 850 MG] 850 mg PO DAILY #30 tablet Fluoxetine HCl 20 mg [Prozac 20 MG] 20 mg PO DAILY #30 cap Continue quiNINE sulfate [Quinine Sulfate] 600 mg PO HS Furosemide 40 mg [Lasix 40 MG] 40 mg PO QAM Changed Warfarin Sodium 4 mg PO DAILY #0 Discontinued Metformin HCl 1000 mg [Glucophage 1000 MG] 1,000 mg PO BID Warfarin Sodium 2 mg [Coumadin 2 MG] 5 mg PO QPM Outpatient Orders: CMP Time Frame: 2 Days, Facility: [facility], Location: LABORATORY Instructions: Oxygen Therapy, Adult (DC) Additional Instructions: FOLLOW UP WITH DARREN AT [facility] IN[facility] WEAR 1L/NC AT ALL TIMES [facility] WILL SCHEDULE STRESS TEST FOR YOU TO DO OUT PATIENT. Follow up with: JOHN SONI [Primary Care Provider] - 01/14/21 10:00 am Forms: Patient Portal Information
== END 2021-01-08 14:00 | disposition swing bed (61) | DRG 683 ==
LOC: MED SURG 12:50
PROVIDERS: ADMIT Family Medicine; ATTEND Family Medicine
DX: N17.9 Acute kidney failure, unspecified (principal); E46 Unspecified protein-calorie malnutrition; E86.0 Dehydration; I50.9 Heart failure, unspecified; R53.1 Weakness; Z79.899 Other long term (current) drug therapy; N41.9 Inflammatory disease of prostate, unspecified; N13.9 Obstructive and reflux uropathy, unspecified; Z79.01 Long term (current) use of anticoagulants
CPT/HCPCS: 36415; 71046; 80048; 82947; 85027; 85610; 94760; J0456; J0696; J1815; J1940; 97110-GP; A9270-GY

== ENCOUNTER 2021-04-03 16:32 | Inpatient (IN) | payer MEDICARE, OTHER ==
[2021-04-04] MEDS ORDERED: BUPIVACAINE 0.5% VIAL IJ ONE (06:32)
[2021-04-04] MEDS ORDERED: XYLOCAINE 1% HCL 20 ML MDV ONE (06:32)
[2021-04-04] MEDS ORDERED: CEFAZOLIN 2 GM-D5W BAG** 2 GM/50 ML ML IV ONE (08:01)
[2021-04-04] MEDS ORDERED: Sodium Chloride 0.9% 500 ML 500 ML IV ONE (08:02)
[2021-04-04] MEDS: Sodium Chloride 0.9% 500 ML 500 ML IV SCH ×2 (08:04→11:11)
[2021-04-04] MEDS ORDERED: Proscar 5 MG PO SCH (10:00)
[2021-04-04] MEDS ORDERED: Flomax 0.4 MG PO SCH (10:00)
[2021-04-04] MEDS ORDERED: MEDICATION INTERVENTION MC SCH (10:00)
[2021-04-04] MEDS ORDERED: WARFARIN SODIUM 4 MG PO SCH (10:00)
[2021-04-04] MEDS ORDERED: Glucophage 850 MG PO SCH (10:00)
[2021-04-04] MEDS ORDERED: Prozac 20 MG PO SCH (10:00)
[2021-04-04] MEDS ORDERED: PHARMACY DOSING REQUIRED: VANCOMYCIN IV STA (10:08)
[2021-04-04] MEDS: VANCOCIN 500 MG VIAL*** 500 MG in Sodium Chloride 100ML MINI-BAG PLUS 100 ML IV SCH (11:12)
[2021-04-04] MEDS ORDERED: HUMULIN R SQ PRN (12:15)
--- NOTE | 2021-04-04 13:15 | OP ---
SURGERY DATE/TIME: 04/04/2021 0843 PREOPERATIVE DIAGNOSIS: Diabetic foot ulcer. Diabetes mellitus type II. Peripheral vascular disease. Pain right foot. Peripheral circulatory disorder due to diabetes mellitus type II. Osteomyelitis fifth digit. POSTOPERATIVE DIAGNOSIS: Diabetic foot ulcer. Diabetes mellitus type II. Peripheral vascular disease. Pain right foot. Peripheral circulatory disorder due to diabetes mellitus type II. Osteomyelitis fifth digit. PROCEDURE: Open amputation fifth digit right foot. SURGEON: Roni Davison DPM. TOP LIFT SCOURER: None. ANESTHESIA: Local consisting of 20 cc of 1:1 mixture of 1% lidocaine plain and 0.5% bupivacaine plain injected in a mini-Correa block type fashion. HEMOSTASIS: Pressure dressing. ESTIMATED BLOOD LOSS: Less than 5 cc. MATERIALS: 3-0 Nylon and 0.25-inch Iodoform packing. INJECTABLES: 20 cc of 1:1 mixture of 1% lidocaine plain and 0.5% bupivacaine plain injected in a mini-Correa block type fashion. INDICATION FOR SURGERY: Uvaldo is a very pleasant 85-year-old male who presented to my clinic for right foot pain during a diabetic foot check. The patient recently had a in the family, his , for which he was unable to follow up for since September of this previous year. On his last visit he was supposed to follow up after assessment with Dr. Monreal where it was determined that he was not a candidate for CT-angiogram due to contrast use and his stage III chronic kidney disease. On his last visit an ulceration with abscess was found on this same toe. However, there was positive probe to bone and purulent drainage. X-rays were obtained demonstrating osteomyelitis of the fifth digit. Options were discussed with the patient and in regards to his chronic kidney disease as well as chronic osteomyelitis, the patient would benefit from amputation with closure subsequently in order to have the quickest return recovery than multiple months of wound care with no guarantee at limb salvage. The patient is also in a highly fragile state from the medical perspective due to chronic kidney disease as well as multiple bouts with pneumonia. The patient was notified that this would be the quickest route to resolve this issue that he has been experiencing. The patient understands all risks, complications and benefits of surgical intervention and this time wishes to proceed. DESCRIPTION OF PROCEDURE AND FINDINGS: The patient was brought into the OR and placed on the OR table in supine position. At this time the right lower extremity is prepped and draped in typical sterile fashion. At this time attention was directed to the fifth digit. A 20 cc block of 1:1 mixture of 1% lidocaine plain, 0.5% bupivacaine plain injected in a mini-Correa block type fashion. At this time a skin marker was utilized to draw a lateral racquet at the fifth digit. At this time a 15 blade was utilized to make incision down to bone at the lateral rim of the racquet and circumscribe the fifth digit at the lateral to proximal phalangeal shaft perpendicular to the longitudinal access of the skin. At this time disarticulation of the fifth digit was performed. Copious amounts of sterile saline were utilized to flush the surgical site. The surgical pathology was then handed off the surgical field at this time in order to assess for pathology and microbiology. A single [id number] stitch of 3-0 Nylon were utilized to coapt the lateral aspect of the surgical wound. Iodoform, 0.25-inch packing was placed inside the deficit and a dressing consisting of Betadine, Adaptic, 4x4, Kerlix and JACKIE was applied. At this time the patient was taken to the postoperative anesthesia care unit to which he will be returned to the floor for administration of IV antibiotics. The patient handled the anesthesia as well as the procedure without complication.
[2021-04-04 13:16] LABS: Creatinine 1 2.56 mg/dL (0.66-1.25); EST GLOMERULAR FILTRATION RATE 25.6 ML/MIN
[2021-04-04] MEDS ORDERED: CEFAZOLIN 2 GM-D5W BAG** 2 GM/50 ML ML IV SCH (14:00)
[2021-04-04 14:37] LABS: INR 1.51 (0.8-3.0); PROTIME 17.8 SECONDS (9.4-12.5)
[2021-04-04] MEDS: PATIENT OWN MEDICATION PO SCH (17:48)
[2021-04-04] MEDS: Flomax 0.4 MG PO SCH (17:48)
[2021-04-04] MEDS: Glucophage 850 MG PO SCH (17:48)
[2021-04-04] MEDS: Proscar 5 MG PO SCH (17:49)
[2021-04-04] MEDS: Coumadin 1 MG PO SCH (17:50)
[2021-04-04] MEDS: ZOCOR 20MG PO SCH (17:50)
[2021-04-04] MEDS: Prozac 20 MG PO SCH (17:50)
[2021-04-04] MEDS: VITAMIN D PO SCH (17:50)
[2021-04-04] MEDS ORDERED: Coumadin 1 MG PO SCH (18:00)
[2021-04-04] MEDS ORDERED: NON-FORMULARY ITEM (Cholecalciferol (Vitamin D3) [Vitamin D3] 1,000 UNIT) PO SCH (18:00)
[2021-04-04] MEDS ORDERED: NON-FORMULARY ITEM (Atorvastatin Calcium [Atorvastatin Calcium] 20 MG) PO SCH (18:00)
[2021-04-04] MEDS ORDERED: Coumadin 3 MG PO SCH (18:00)
--- NOTE | 2021-04-04 19:40 | PCM.HP ---
History of Present Illness - Chief Complaint Chief Complaint: Right 5th TOE AMPUTATION,Osteomyelitis,PVD Date: 04/04/21 History of Present Illness: is a 85 year old male. Pt. presented to podiatry clinic yesterday and found to have osteomyelitis of right fifth toe, pt. was admitted for amputation of said toe to present potential spread of infection and further loss of limb. - Review of Systems Constitutional: No Fever, No Chills Eyes: No Symptoms Ears, Nose, & Throat: No Symptoms Respiratory: No Cough, No Short Of Breath Cardiac: No Chest Pain, No Edema, No Syncope Abdominal/Gastrointestinal: No Abdominal Pain, No Nausea, No Vomiting, No Diarrhea Genitourinary Symptoms: No Dysuria Musculoskeletal: Joint Pain (swelling and pain of right fifth toe), No Back Pain, No Neck Pain Skin: No Rash Neurological: No Dizziness, No Focal Weakness, No Sensory Changes Psychological: No Symptoms Endocrine: No Symptoms Hematologic/Lymphatic: No Symptoms Immunological/Allergic: No Symptoms Medications & Allergies Home Medications: Home Medication List quiNINE sulfate [Quinine Sulfate] 600 mg PO EVENING MEAL 07/28/18 [History Confirmed 04/04/21] Fluoxetine HCl 20 mg [Prozac 20 MG] 20 mg PO DAILY #30 cap 01/08/21 [Rx Confirmed 04/04/21] Metformin HCl 850 mg [Glucophage 850 MG] 850 mg PO DAILY #30 tablet 01/08/21 [Rx Confirmed 04/04/21] Warfarin Sodium 4 mg PO DAILY #0 01/08/21 [Rx Confirmed 04/04/21] Finasteride 5 mg PO EVENING MEAL 02/11/21 [History Confirmed 04/04/21] Tamsulosin HCl 0.4 mg PO EVENING MEAL 02/11/21 [History Confirmed 04/04/21] Atorvastatin Calcium 20 mg PO EVENING MEAL 04/04/21 [History Confirmed 04/04/21] Cholecalciferol (Vitamin D3) [Vitamin D3] 1,000 unit PO EVENING MEAL 04/04/21 [History Confirmed 04/04/21] Allergies/Adverse Reactions: Allergies Allergy/AdvReac Type Severity Reaction Status Date / Time No Known Drug Allergies Allergy Verified 04/04/21 07:18 - Past Medical History Past Medical History: Yes Neurological History: No Pertinent History ENT History: Cataracts Cardiac History: Coronary Artery Disease, Deep Vein Thrombosis Respiratory History: Pneumonia Endocrine Medical History: Diabetes Type II Musculoskelatal History: Other GI Medical History: Hernia History: Renal Disease, Other Pyscho-Social History: No Pertinent History Male Reproductive Disorders: Prostate Problems Comment: Leg Cramps, enlarged prostate, blood clot in l leg and lung years ago, kidney stones, shingles, facial fx, right shoulder injury, quadruple bypass - Past Surgical History Past Surgical History: Yes Neuro Surgical History: No Pertinent History Cardiac History: CABG, Pacemaker Respiratory Surgery: No Pertinent History GI Surgical History: No Pertinent History Genitourinary Surgical Hx: Other Musculskeletal Surgical Hx: Orthopedic Surgery Male Surgical History: No Pertinent History Other Surgical History: Removed kidney stones at the age of 23, ortho shoulder repair and numbness in right arm, turp 2012, skin cancer removed, RIGHT FOOT LITTLE TOE REMOVAL - Social History Smoking Status: Never smoker Exposure to second hand smoke: No Alcohol: None Drug Use: none - Physical Exam Vital Signs: Vital Signs - 24 hr Temp Pulse Resp BP Pulse Ox 04/04/21 16:23 97.9 F 92 H 18 110/58 91 L 04/04/21 12:23 98.0 F 64 20 121/73 95 04/04/21 12:00 98 F 64 20 121/73 95 04/04/21 09:51 97.1 F 89 18 147/83 96 04/04/21 08:29 97.2 F 94 H 18 119/71 96 04/04/21 07:41 97.2 F 94 H 18 119/71 96 General Appearance: no apparent distress, alert Neurologic Exam: alert, oriented x 3, cooperative, normal mood/affect, nml cerebellar function, nml station & gait, sensation nml, No motor deficits Eye Exam: PERRL/EOMI, eyes nml inspection Ears, Nose, Throat Exam: normal ENT inspection, TMs normal, pharynx normal, moist mucous membranes Neck Exam: normal inspection, non-tender, supple, full range of motion Respiratory Exam: normal breath sounds, lungs clear, No respiratory distress Cardiovascular Exam: regular rate/rhythm, normal heart sounds, normal peripheral pulses Gastrointestinal/Abdomen Exam: soft, normal bowel sounds, No tenderness, No mass Back Exam: normal inspection, normal range of motion, No CVA tenderness, No vertebral tenderness Extremity Exam: normal inspection, normal range of motion, pelvis stable Skin Exam: normal color, warm, dry, No rash Wound Assessment: Skin/Wound Assessment Wound/Incision Assessment Start: 04/04/21 10:39 Text: Status: Active Freq: Q4H Protocol: Document 04/04/21 16:00 AW (Rec: 04/04/21 16:10 AW [id number]) Wound/Incision Assessment Right Foot Wound Type Amputation Dressing Status Dry & Intact Drainage Amount None Drainage Odor None/Absent Wound Photo Photo Taken No Lymphatic Exam: No adenopathy Results - Labs Lab/Micro Results: Lab Results-Last 24 Hours 04/04/21 04/04/21 04/04/21 Range/Units 11:43 12:50 13:53 PT 17.8 H (9.4-12.5) SECONDS INR 1.51 (0.8-3.0) Creatinine 2.56 H (0.66-1.25) mg/dL Estimated GFR 25.6 ML/MIN POC Glucometer 91 (74 to 106) mg/dL 04/04/21 Range/Units 18:17 PT (9.4-12.5) SECONDS INR (0.8-3.0) Creatinine (0.66-1.25) mg/dL Estimated GFR ML/MIN POC Glucometer 137 H (74 to 106) mg/dL Microbiology 04/04/21 09:00 Aerobic Culture Result 1 - Final Toe - Right 5th Toe Not Reportable Aerobic Culture Result 2 - Final Not Reportable Aerobic Culture Result 3 - Final Not Reportable Aerobic Culture Result 4 - Final Not Reportable Aerobic Bacterial Sensitivity - Final Not Reportable 04/04/21 09:00 Aerobic Culture Result 1 - Final Toe - Right 5th Toe Not Reportable Aerobic Culture Result 2 - Final Not Reportable Aerobic Culture Result 3 - Final Not Reportable Aerobic Culture Result 4 - Final Not Reportable Aerobic Bacterial Sensitivity - Final Not Reportable Assessment/Plan (1) Osteomyelitis Current Visit: Yes Status: Acute Assessment & Plan: amputation of right fifth toe, to prevent further loss of limb, iv antibiotics Code(s): M86.9 - OSTEOMYELITIS, UNSPECIFIED
[2021-04-04] MEDS: Sodium Chloride 0.9% 1000 ML 1,000 ML IV SCH (21:19)
[2021-04-04] MEDS ORDERED: QUININE SULFATE PO SCH (22:00)
[2021-04-05] MEDS: NORCO 5/325 MG PO PRN ×4 (04:22→21:57)
[2021-04-05 06:30] LABS: Hematocrit 31.4 % (42-50); Hemoglobin 9.6 gm/dl (12.5-18.0); Mean Cell Volume 101.6 fl (78-100); Mean Corpuscular Hemoglobin 31.1 pg (26-32); Mean Corpuscular Hgb Concent. 30.6 g/dl (32-36); Mean Platelet Volume 10.7 fl (7.5-11.0); Platelet Count 209 K/mm3 (150-450); Red Blood Count 3.09 M/mm3 (4.1-5.6); Red Cell Distribution Width 13.7 % (11.5-14.0); White Blood Count 8.9 K/mm3 (4.0-10.5)
--- NOTE | 2021-04-05 06:33 | PCM.NOTE ---
Podiatry Narrative Note Podiatry Narrative Note: Subjective: Patient seen at bedside this a.m. with nurse. Patient is awake on presentation indicating pain to the heel more so than the toe of the ipsilateral foot. He denies any calf pain. He denies any constitutional symptoms at this time. He currently denies any other pedal complaints. Objective: Hematology awaiting results Chemistries awaiting results Physical exam: Right lower extremity centered physical exam Vascular: DP and PT pulses nonpalpable capillary refill time is less than 3 seconds. No cellulitis or proximal streaking noted this is an improvement from prior to surgical intervention. No lymphadenopathy on palpation of popliteal or inguinal lymph nodes. Dermatological: Single over and over stitch at lateral aspect intact without any evidence of dehiscence central aspect of wound open at this time with packing. Wound packing pulled no demonstration of residual purulence skin margins without any discoloration. Neurological: Epicritic sensation diminished: Protopathic sensation intact Musculoskeletal: Status post amputation fifth digit right foot with wound open. Minimal strikethrough on dressing on presentation (1) Osteomyelitis Current Visit: Yes Status: Acute Assessment & Plan: amputation of right fifth toe, to prevent further loss of limb, iv antibiotics Code(s): M86.9 - OSTEOMYELITIS, UNSPECIFIED Patient examination and evaluation. Patient progressing without complication at this time postoperative day #1. Minimal complaints of pain at the heel more so than the toe likely due to dressing more so than pressure offloading. Wound examined today demonstrating adequate soft tissue margins for closure and no significant indications of infection. Cellulitis is resolving at this time therefore delayed primary closure is likely appropriate in the coming days. Plan for surgical intervention at noon on Thursday April 08, 2021 This will be performed under local patient does not have to be n.p.o. for this procedure We will follow closely Awaiting results of CBC and CMP to be obtained today
[2021-04-05 06:49] LABS: ANION GAP 12.5 MEQ/L (5-15); Calcium 8.4 mg/dL (8.4-10.2); Creatinine 1 2.45 mg/dL (0.66-1.25); EST GLOMERULAR FILTRATION RATE 26.9 ML/MIN; Potassium 4.4 mmol/L (3.5-5.1)
[2021-04-05 08:07] LABS: ALBUMIN 2.9 g/dL (3.5-5.0); BILIRUBIN,TOTAL 0.4 mg/dL (0.2-1.3); Total Protein 5.7 g/dL (6.3-8.2)
[2021-04-05] MEDS: VANCOCIN 500 MG VIAL*** 500 MG in Sodium Chloride 100ML MINI-BAG PLUS 100 ML IV SCH (10:02)
[2021-04-05 10:04] LABS: BAND 6 % (0.0-2.0); Lymphocytes 12 % (24-44); Monocyte 7 % (0.0-12.0); Neutrophils 75 % (36.-66.); Platelet Estimate NORMAL (NORMAL); Total Cells Counted 100
[2021-04-05] MEDS: Flomax 0.4 MG PO SCH (17:53)
[2021-04-05] MEDS: Glucophage 850 MG PO SCH (17:53)
[2021-04-05] MEDS: Prozac 20 MG PO SCH (17:54)
[2021-04-05] MEDS: Proscar 5 MG PO SCH (17:54)
[2021-04-05] MEDS: PATIENT OWN MEDICATION PO SCH (17:54)
[2021-04-05] MEDS: VITAMIN D PO SCH (17:54)
[2021-04-05] MEDS: Coumadin 5 MG PO SCH (17:55)
[2021-04-05] MEDS: ZOCOR 20MG PO SCH (17:55)
[2021-04-05] MEDS: Sodium Chloride 0.9% 1000 ML 1,000 ML IV SCH (18:30)
--- NOTE | 2021-04-06 08:29 | PCM.NOTE ---
Podiatry Narrative Note Podiatry Narrative Note: Subjective: Patient seen at bedside this a.m. with nurse POD #2. Patient is awake on presentation indicating minimized pain at this time. He denies any calf pain. He denies any constitutional symptoms at this time. He currently denies any other pedal complaints. Objective: See Labs Physical exam: Right lower extremity centered physical exam Vascular: DP and PT pulses nonpalpable capillary refill time is less than 3 seconds. No cellulitis or proximal streaking noted this is an improvement from prior to surgical intervention. No lymphadenopathy on palpation of popliteal or inguinal lymph nodes. Dermatological: Single over and over stitch at lateral aspect intact without any evidence of dehiscence central aspect of wound open at this time with packing. Wound packing pulled no demonstration of residual purulence skin margins without any discoloration. Neurological: Epicritic sensation diminished: Protopathic sensation intact Musculoskeletal: Status post amputation fifth digit right foot with wound open. Minimal strikethrough on dressing on presentation (1) Osteomyelitis Current Visit: Yes Status: Acute Assessment & Plan: amputation of right fifth toe, to prevent further loss of limb, iv antibiotics Code(s): M86.9 - OSTEOMYELITIS, UNSPECIFIED Patient examination and evaluation. Patient progressing without complication at this time postoperative day #2. minimal pain today compared to yeserday Wound examined today demonstrating adequate soft tissue margins for closure and no significant indications of infection. Cellulitis resolved at this time. Plan for surgical intervention at noon on Thursday April 08, 2021 This will be performed under local patient does not have to be n.p.o. for this procedure We will follow closely
[2021-04-06] MEDS ORDERED: TROUGH DRUG LEVELS IJ ONE (09:30)
[2021-04-06 10:15] LABS: ALBUMIN 3.2 g/dL (3.5-5.0); ANION GAP 15.3 MEQ/L (5-15); BILIRUBIN,TOTAL 0.5 mg/dL (0.2-1.3); Calcium 8.7 mg/dL (8.4-10.2); Creatinine 1 2.42 mg/dL (0.66-1.25); EST GLOMERULAR FILTRATION RATE 27.3 ML/MIN; Potassium 4.8 mmol/L (3.5-5.1); Total Protein 6.1 g/dL (6.3-8.2)
[2021-04-06] MEDS: VANCOCIN 500 MG VIAL*** 500 MG in Sodium Chloride 100ML MINI-BAG PLUS 100 ML IV SCH ×2 (10:20→21:45)
[2021-04-06] MEDS: Glucophage 850 MG PO SCH (16:30)
[2021-04-06] MEDS: Proscar 5 MG PO SCH (16:30)
[2021-04-06] MEDS: VITAMIN D PO SCH (16:30)
[2021-04-06] MEDS: Flomax 0.4 MG PO SCH (16:30)
[2021-04-06] MEDS: ZOCOR 20MG PO SCH (16:31)
[2021-04-06] MEDS: Prozac 20 MG PO SCH (16:31)
[2021-04-06] MEDS: PATIENT OWN MEDICATION PO SCH (16:31)
[2021-04-06] MEDS: Coumadin 5 MG PO SCH (18:28)
[2021-04-07 05:51] LABS: BASOPHIL % 0.3 % (0.0-0.4); Basophil (Absolute #) 0.02 (0-0.4); Eosinophil % 3.5 % (0.00-5.0); Eosinophil (Absolute #) 0.27 (0-0.5); Hematocrit 31.3 % (42-50); Hemoglobin 9.5 gm/dl (12.5-18.0); Lymphocyte (Absolute #) 1.55 (1.0-4.6); Lymphocytes % 19.8 % (24.0-44.0); Mean Corpuscular Hemoglobin 30.9 pg (26-32); Mean Corpuscular Hgb Concent. 30.4 g/dl (32-36); Mean Platelet Volume 10.5 fl (7.5-11.0); Monocyte (Absolute #) 0.58 (0.0-1.3); Monocytes % 7.4 % (0.0-12.0); Platelet Count 189 K/mm3 (150-450); Red Blood Count 3.07 M/mm3 (4.1-5.6); Red Cell Distribution Width 13.9 % (11.5-14.0); White Blood Count 7.8 K/mm3 (4.0-10.5)
[2021-04-07 06:06] LABS: ALBUMIN 2.9 g/dL (3.5-5.0); ANION GAP 12.7 MEQ/L (5-15); BILIRUBIN,TOTAL 0.4 mg/dL (0.2-1.3); Calcium 8.6 mg/dL (8.4-10.2); Creatinine 1 2.32 mg/dL (0.66-1.25); EST GLOMERULAR FILTRATION RATE 28.6 ML/MIN; Potassium 4.6 mmol/L (3.5-5.1); Total Protein 5.9 g/dL (6.3-8.2)
--- NOTE | 2021-04-07 08:42 | PCM.NOTE ---
Podiatry Narrative Note Podiatry Narrative Note: Subjective: Patient seen at bedside this a.m. with nurse POD #3. Patient is awake on presentation indicating minimized pain at this time. He denies any calf pain. He denies any constitutional symptoms at this time. He currently denies any other pedal complaints. Objective: See Labs Physical exam: Right lower extremity centered physical exam Vascular: DP and PT pulses nonpalpable capillary refill time is less than 3 seconds. No cellulitis or proximal streaking noted this is an improvement from prior to surgical intervention. No lymphadenopathy on palpation of popliteal or inguinal lymph nodes. Dermatological: Single over and over stitch at lateral aspect intact without any evidence of dehiscence central aspect of wound open at this time with packing. Wound packing pulled no demonstration of residual purulence skin margins without any discoloration. Neurological: Epicritic sensation diminished: Protopathic sensation intact Musculoskeletal: Status post amputation fifth digit right foot with wound open. Minimal strikethrough on dressing on presentation (1) Osteomyelitis Current Visit: Yes Status: Acute Assessment & Plan: amputation of right fifth toe, to prevent further loss of limb, iv antibiotics Code(s): M86.9 - OSTEOMYELITIS, UNSPECIFIED Patient examination and evaluation. Patient progressing without complication at this time postoperative day #3. minimal pain today Wound examined today demonstrating adequate soft tissue margins for closure and no significant indications of infection. Cellulitis resolved at this time. Plan for surgical intervention at noon on Thursday April 08, 2021 This will be performed under local patient does not have to be n.p.o. for this procedure We will follow closely
[2021-04-07] MEDS: VANCOCIN 500 MG VIAL*** 500 MG in Sodium Chloride 100ML MINI-BAG PLUS 100 ML IV SCH ×2 (10:45→21:30)
--- NOTE | 2021-04-07 13:27 | PCM.NOTE ---
Date and Time: 04/07/21 1321 Subjective Assessment: Patient states he is doing fairly well today. He was up to the bathroom with his walker and just got back in bed. States just a little winded from that Right foot does not hurt unless it is touched. Appetite is good and had a BM. . Denies cough or chest pain os dyspnea at rest. Objective Exam General Appearance: no apparent distress, alert Neurologic Exam: alert, oriented x 3, cooperative, normal mood/affect Skin Exam: normal color, warm, dry Wound Assessment: Skin/Wound Assessment Wound/Incision Assessment Start: 04/04/21 10:39 Text: Status: Active Freq: Q4H Protocol: Document 04/07/21 08:00 DOMINGUEZ (Rec: 04/07/21 11:16 [email or web address] [id number]) Wound/Incision Assessment Right Foot Wound Assessment Shift Assessment Wound Type Amputation Dressing Status Dry & Intact Drainage Amount None Drainage Odor None/Absent General Appearance Clean/Dry Wound Photo Photo Taken No Ears, Nose, Throat Exam: normal ENT inspection Neck Exam: normal inspection Respiratory Exam: crackles/rales (left base) Cardiovascular Exam: regular rate/rhythm Gastrointestinal/Abdomen Exam: soft, normal bowel sounds (nontender) Extremity Exam: other (right foot examined by Podiatry today ,dressing is clean and dry.) OBJECTIVE DATA Vital Signs: Vital Signs - 24 hr Temp Pulse Resp BP Pulse Ox 04/07/21 11:25 97.9 F 60 16 160/70 97 04/07/21 07:18 97.8 F 88 16 126/58 92 L 04/07/21 04:00 98.9 F 89 22 129/70 92 L 04/06/21 23:33 98.0 F 71 20 126/62 93 L 04/06/21 19:27 97.7 F 67 18 139/65 92 L 04/06/21 16:00 97.5 F 61 16 151/69 92 L Pain Assessment - Last Documented Pain Intensity 0 Pain Scale Used 0-10 Pain Scale Intake and Output: Intake & Output 04/05/21 04/06/21 04/07/21 04/08/21 11:59 11:59 11:59 11:59 Intake Total 1291 2608 1040 380 Balance 1291 2608 1040 380 Weight 70.6 kg Lab Results: Lab Results-Last 24 Hours 04/06/21 04/06/21 04/07/21 Range/Units 16:31 20:46 05:07 WBC 7.8 (4.0-10.5) K/mm3 RBC 3.07 L (4.1-5.6) M/mm3 Hgb 9.5 L (12.5-18.0) gm/dl Hct 31.3 L (42-50) % MCV 102.0 H (78-100) fl MCH 30.9 (26-32) pg MCHC 30.4 L (32-36) g/dl RDW 13.9 (11.5-14.0) % Plt Count 189 (150-450) K/mm3 MPV 10.5 (7.5-11.0) fl Gran % 69.0 H (36.0-66.0) % Eos # (Auto) 0.27 (0-0.5) Absolute Lymphs (auto) 1.55 (1.0-4.6) Absolute Monos (auto) 0.58 (0.0-1.3) Lymphocytes % 19.8 L (24.0-44.0) % Monocytes % 7.4 (0.0-12.0) % Eosinophils % 3.5 (0.00-5.0) % Basophils % 0.3 (0.0-0.4) % Absolute Granulocytes 5.40 (1.4-6.9) Basophils # 0.02 (0-0.4) Sodium (137-145) mmol/L Potassium (3.5-5.1) mmol/L Chloride (98-107) mmol/L Carbon Dioxide (22-30) mmol/L Anion Gap (5-15) MEQ/L BUN (9-20) mg/dL Creatinine (0.66-1.25) mg/dL Estimated GFR ML/MIN Glucose (74-106) mg/dL POC Glucometer 141 H 135 H (74 to 106) mg/dL Calcium (8.4-10.2) mg/dL Total Bilirubin (0.2-1.3) mg/dL AST (17-59) U/L ALT (0-50) U/L Alkaline Phosphatase (38-126) U/L Serum Total Protein (6.3-8.2) g/dL Albumin (3.5-5.0) g/dL 09/04/07/21 04/07/21 Range/Units 05:07 07:13 11:20 WBC (4.0-10.5) K/mm3 RBC (4.1-5.6) M/mm3 Hgb (12.5-18.0) gm/dl Hct (42-50) % MCV (78-100) fl MCH (26-32) pg MCHC (32-36) g/dl RDW (11.5-14.0) % Plt Count (150-450) K/mm3 MPV (7.5-11.0) fl Gran % (36.0-66.0) % Eos # (Auto) (0-0.5) Absolute Lymphs (auto) (1.0-4.6) Absolute Monos (auto) (0.0-1.3) Lymphocytes % (24.0-44.0) % Monocytes % (0.0-12.0) % Eosinophils % (0.00-5.0) % Basophils % (0.0-0.4) % Absolute Granulocytes (1.4-6.9) Basophils # (0-0.4) Sodium 141 (137-145) mmol/L Potassium 4.6 (3.5-5.1) mmol/L Chloride 111 H (98-107) mmol/L Carbon Dioxide 21 L (22-30) mmol/L Anion Gap 12.7 (5-15) MEQ/L BUN 26 H (9-20) mg/dL Creatinine 2.32 H (0.66-1.25) mg/dL Estimated GFR 28.6 ML/MIN Glucose 57 L (74-106) mg/dL POC Glucometer 117 H 96 (74 to 106) mg/dL Calcium 8.6 (8.4-10.2) mg/dL Total Bilirubin 0.40 (0.2-1.3) mg/dL AST 26 (17-59) U/L ALT 13 (0-50) U/L Alkaline Phosphatase 71 (38-126) U/L Serum Total Protein 5.9 L (6.3-8.2) g/dL Albumin 2.9 L (3.5-5.0) g/dL Assessment/Plan (1) Osteomyelitis Current Visit: Yes Status: Acute Qualifiers: Osteomyelitis location: foot Laterality: right Assessment & Plan: Dr Mascorro plans loca for surgery to close right foot tomorrow. Code(s): M86.9 - OSTEOMYELITIS, UNSPECIFIED (2) Lung crackles Current Visit: Yes Status: Chronic Assessment & Plan: left base crackles - portable CXR today Code(s): R09.89 - OTH SYMPTOMS AND SIGNS INVOLVING THE CIRC AND RESP SYSTEMS
--- NOTE | 2021-04-07 14:10 | XRAY ---
Indication: Left lung base crackles. Comparison: June 24, 2021. Portable chest again demonstrates mild diffuse bilateral airspace disease. Worsening mild bibasilar effusions/atelectasis left greater than right. 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
[2021-04-07] MEDS: Glucophage 850 MG PO SCH (16:31)
[2021-04-07] MEDS: VITAMIN D PO SCH (16:31)
[2021-04-07] MEDS: ZOCOR 20MG PO SCH (16:31)
[2021-04-07] MEDS: Prozac 20 MG PO SCH (16:31)
[2021-04-07] MEDS: Flomax 0.4 MG PO SCH (16:31)
[2021-04-07] MEDS: PATIENT OWN MEDICATION PO SCH (16:32)
[2021-04-07] MEDS: Proscar 5 MG PO SCH (16:32)
[2021-04-07] MEDS: Coumadin 1 MG PO SCH (17:22)
[2021-04-07] MEDS: Sodium Chloride 0.9% 1000 ML 1,000 ML IV SCH (20:41)
[2021-04-08 06:33] LABS: INR 2.33 (0.8-3.0); PROTIME 27.5 SECONDS (9.4-12.5)
[2021-04-08] MEDS ORDERED: TROUGH DRUG LEVELS IJ ONE (09:30)
[2021-04-08] MEDS: VANCOCIN 500 MG VIAL*** 500 MG in Sodium Chloride 100ML MINI-BAG PLUS 100 ML IV SCH (11:22)
[2021-04-08] MEDS ORDERED: BUPIVACAINE 0.5% VIAL IJ ONE (12:06)
[2021-04-08] MEDS ORDERED: XYLOCAINE 1% HCL 20 ML MDV ONE (12:06)
[2021-04-08] MEDS ORDERED: MOTRIN 600 MG PO PRN (13:07)
[2021-04-08 13:11] VITALS: BP 159/74; PULSE 70; O2SAT 92
[2021-04-08] MEDS ORDERED: Vibramycin 100 MG PO SCH (17:00)
--- NOTE | 2021-04-09 11:45 | OP ---
SURGERY DATE: 04/08/2021 SURGERY TIME: 5 PREOPERATIVE DIAGNOSIS: 1. OSTEOMYELITIS RIGHT FIFTH DIGIT. 2. PAIN RIGHT FOOT. 3. DIABETIC FOOT ULCER. 4. PERIPHERAL VASCULAR DISEASE. 5. 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 POSTOPERATIVE DIAGNOSIS: 1. OSTEOMYELITIS RIGHT FIFTH DIGIT. 2. PAIN RIGHT FOOT. 3. DIABETIC FOOT ULCER. 4. PERIPHERAL VASCULAR DISEASE. 5. 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 PROCEDURE: 1. Repeat incision and drainage with delayed primary closure. SURGEON: Roni Davison D.P.M. CIDER MAKER: None. ANESTHESIA: Local. See injectable section. HEMOSTASIS: A pressure dressing. ESTIMATED BLOOD LOSS: Less than 20 cc. MATERIALS: 2-0 Vicryl, 3-0 Nylon. INJECTABLES: 16 cc of a 1:1 mixture of 1% Lidocaine plain and 0.5% Bupivacaine plain injected in the mini Correa block type fashion. INDICATIONS FOR PROCEDURE: Uvaldo is a very pleasant 85 y/o male who was seen in my office on of last week. He did have complications of an abscess that was found to the proximal interphalangeal joint of the 5th digit of the right foot that was taken care of in September 2020. However, he was lost to follow-up after being assessed by the peripheral vascular specialist, Dr. Monreal. Patient was progressing without complication. However, he indicates that he has been having pain to his right foot and on inspection, it demonstrated an abscess penetrating into the proximal interphalangeal joint with approximately 2 cc. At this time, discussion was had with patient in regards to treating the digit with conservative methods vs amputation in order to eliminate the need for repeat visits and prolong wound care with no guarantee to heal. Patient indicated at that time he wanted to proceed with the amputation as he wanted to return to activity as quickly as possible. The same conversation was had with his daughter who indicated she would like the same aggressive management at this time. Patient's understands risks, complications, and benefits of surgical intervention including, but not limited to, delayed wound healing, non-wound healing, possible residual infection, exacerbation of peripheral vascular disease in which more amputation may be necessary in the future as well as residual pain following surgical intervention. He understands all this and wishes to proceed with surgical intervention at that time. An open amputation was performed of the 5th digit on the right foot on Wednesday. This is a repeat incision and drainage and if all factors appear to be free of necrotic and infected tissue, plan for the delayed primary closure at this time. DESCRIPTION OF PROCEDURE: The patient was brought in to the OR and placed on the OR table in the supine position. Following this, a mini Correa block consisting of 16 cc of 1:1 mixture of 1% Lidocaine plain and 0.5% Bupivacaine plain was injected into the right foot under aseptic technique. At this time, the right foot was prepped and draped in the typical sterile fashion and the right lower extremity was lowered onto the surgical field. At this time, the stitch at the lateral aspect of the foot was removed utilizing a 15 blade and a pickup. The incision was then deepened down to the articular cartilage of the 5th metatarsal head inspecting the soft tissue for any residual signs of necrosis or infection. At this time, minimal signs of infection were noted. However, significant necrosis of the superficial soft tissue was debrided using a combination of rongeurs, curettes as well as the 15 blade. At this time, a 15 blade was utilized to incise the edge of the wound and a healthy bleeding edge was visualized indicating appropriate wound healing potential. At this time, copious amounts of sterile saline were utilized to flush the surgical site and the surgical site was then inspected once more for any indications of necrosis or infection which were absent at this time. A 2-0 Vicryl was utilized at the edge of the wound at the lateral rim of the lateral racquet and was utilized to coapt the incision subcutaneously. At this time, a 3-0 Nylon was then utilized to coapt the surgical site in a simple interrupted stitch until final closure was maintained under minimal tension. At this time, the leg was cleansed with a wet Lap and then dried. A dressing consisting of Betadine, Adaptic, 4 X 4, Javon, and Miguel was applied to the right lower extremity in the non-compressive type fashion. Patient handled the procedure as well as the anesthesia without complication. Was returned to the floor with vital signs stable and vascular status intact. Discharge orders as indicated in the patient's chart.
--- NOTE | 2021-04-09 17:09 | PCM.DS ---
Discharge Summary Date of Admission: 04/04/21 06:49 Date of Discharge: 04/08/2021 Admitting Physician: JOHN SONI Consults: Consults on Case 04/04/21 10:41 Consult Podiatry ROUTINE Primary Care Provider: MARYLOU ALVARENGA DPM Allergies Allergies No Known Drug Allergies Allergy (Verified 04/04/21 07:18) Hospital Summary - Hospital Course Hospital Course: Pt. admitted for osteomyelitis of right fifth toe and amputation, Pt. under went the amputation, and secondary closure on the morning of discharge, pt. was treated with iv antibiotics throughout his hospitalization, with no particular problems other than some loose stools the last day. - Vitals & Intake/Output Vital Signs: Vital Signs Temperature 98.1 F 04/08/21 13:10 Pulse Rate 70 04/08/21 13:10 Respiratory Rate 16 04/08/21 13:10 Blood Pressure 159/74 04/08/21 13:10 O2 Sat by Pulse Oximetry 92 L 04/08/21 13:10 Intake & Output: Intake & Output 04/07/21 04/08/21 04/09/21 04/10/21 11:59 11:59 11:59 11:59 Intake Total 1040 860 280 Balance 1040 860 280 Weight 70.6 kg - Lab Result Diagrams: 04/07/21 05:07 04/07/21 05:07 Micro Results-Entire Visit: Microbiology 04/04/21 09:00 Aerobic Culture - Final Toe - Right 5th Toe Aerobic Culture Result 1 - Final 04/04/21 09:00 Aerobic Culture - Final Toe - Right 5th Toe Aerobic Culture Result 1 - Final Discharge Exam General Appearance: no apparent distress, alert Neurologic Exam: alert, oriented x 3, cooperative, normal mood/affect, nml cerebellar function, sensation nml, No motor deficits Eye Exam: PERRL, EOMI, eyes nml inspection Ears, Nose, Throat Exam: normal ENT inspection Neck Exam: normal inspection, non-tender, full range of motion Respiratory Exam: normal breath sounds, lungs clear, No respiratory distress Cardiovascular Exam: normal heart sounds, irregular Gastrointestinal/Abdomen Exam: soft, No tenderness, No mass Male Genitalia Exam: deferred Rectal Exam: deferred Back Exam: normal inspection, normal range of motion, No CVA tenderness, No vertebral tenderness Extremity Exam: normal inspection, normal range of motion Skin Exam: normal color, warm, dry Final Diagnosis/Problem List - Final Discharge Diagnosis/Problem (1) Osteomyelitis Status: Acute Code(s): M86.9 - OSTEOMYELITIS, UNSPECIFIED - Discharge Discharge Date: 04/08/21 Disposition: Home, Self-Care Condition: Stable Prescriptions: New Doxycycline Hyclate 100 mg [Vibramycin 100 MG] 100 mg PO BID 7 Days #14 tab Doxycycline Hyclate 100 mg [Vibramycin 100 MG] 100 mg PO BIDWM #0 tab No Action quiNINE sulfate [Quinine Sulfate] 600 mg PO EVENING MEAL Warfarin Sodium 4 mg PO DAILY #0 Metformin HCl 850 mg [Glucophage 850 MG] 850 mg PO DAILY #30 tablet Fluoxetine HCl 20 mg [Prozac 20 MG] 20 mg PO DAILY #30 cap Tamsulosin HCl 0.4 mg PO EVENING MEAL Finasteride 5 mg PO EVENING MEAL Cholecalciferol (Vitamin D3) [Vitamin D3] 1,000 unit PO EVENING MEAL Atorvastatin Calcium 20 mg PO EVENING MEAL Instructions: Oxygen Therapy, Adult, Osteomyelitis, Doxycycline Follow up with: MARYLOU ALVARENGA DPM [Primary Care Provider] - 04/15/21 1:00 pm JOHN SONI MD [ACTIVE STAFF] - 04/16/21 10:30 am Forms: Discharge Instructions
== END 2021-04-08 14:35 | disposition home or self-care (01) | DRG 502 ==
LOC: UNDOADMIN 16:32 → ICU 16:32 → MED SURG 16:58 → ICU 16:58 → MED SURG 04-04 06:49
PROVIDERS: ADMIT Family Medicine; ATTEND Family Medicine
PROC: 0Y6X0Z0 Detachment at Right 5th Toe, Complete, Open Approach (ICD-10-PCS; principal; 2021-04-04)
PROC: 0JQQ0ZZ Repair Right Foot Subcutaneous Tissue and Fascia, Open Approach (ICD-10-PCS; 2021-04-08)
PROC: 0J9Q0ZZ Drainage of Right Foot Subcutaneous Tissue and Fascia, Open Approach (ICD-10-PCS; 2021-04-08)
DX: M86.171 Other acute osteomyelitis, right ankle and foot (principal); E11.621 Type 2 diabetes mellitus with foot ulcer; E11.51 Type 2 diabetes mellitus with diabetic peripheral angiopathy without gangrene; E11.42 Type 2 diabetes mellitus with diabetic polyneuropathy; I73.9 Peripheral vascular disease, unspecified; Z79.01 Long term (current) use of anticoagulants; R09.89 Other specified symptoms and signs involving the circulatory and respiratory systems; M79.671 Pain in right foot; I25.10 Atherosclerotic heart disease of native coronary artery without angina pectoris; Z86.718 Personal history of other venous thrombosis and embolism; Z79.4 Long term (current) use of insulin; Z79.899 Other long term (current) drug therapy; Z20.822 Contact with and (suspected) exposure to COVID-19
CPT/HCPCS: 11056; 11721; 13160; 28003; 28820; 36415; 71045; 73630; 80053; 80202; 82565; 82947; 83036; 85025; 85610; 87070; 99213; 99232; 99233; G0463; 88304; 88305; 88311; 99211; J0690; J3370; A9270-GY

== ENCOUNTER 2022-05-16 12:58 | Emergency (ER) | payer MEDICARE, OTHER ==
[2022-05-16 13:54] LABS: Absolute Neutrophil Ct (ANC) 10.33 x10^3/uL (1.4-6.9); Basophil (Absolute #) 0.05 x10^3/uL (0-0.4); Eosinophil % 0.2 % (0.00-5.0); Eosinophil (Absolute #) 0.02 x10^3/uL (0-0.5); Hematocrit 41.9 % (42-50); Hemoglobin 13.1 g/dL (12.5-18.0); Lymphocyte (Absolute #) 0.93 x10^3/uL (1.0-4.6); Lymphocytes % 7.8 % (24.0-44.0); Mean Cell Volume 99.8 fL (78-100); Mean Corpuscular Hemoglobin 31.2 pg (26-32); Mean Corpuscular Hgb Concent. 31.3 g/dL (32-36); Monocyte (Absolute #) 0.56 x10^3/uL (0.0-1.3); Monocytes % 4.7 % (0.0-12.0); Neutrophil % 86.3 % (36.0-66.0); Platelet Count 229 x10^3/uL (150-450); Red Cell Distribution Width 12.9 % (11.5-14.0)
[2022-05-16 13:59] LABS: INR 3.42 (0.8-3.0); PROTIME 32.4 SECONDS (9.4-12.5)
[2022-05-16 14:04] LABS: ALBUMIN 4.1 g/dL (3.5-5.0); ANION GAP 18.7 MEQ/L (5-15); BILIRUBIN,TOTAL 0.9 mg/dL (0.2-1.3); Calcium 9.2 mg/dL (8.4-10.2); Creatinine 1 4.51 mg/dL (0.66-1.25); EST GLOMERULAR FILTRATION RATE 13.3 ML/MIN; Potassium 4.8 mmol/L (3.5-5.1); Total Protein 7.1 g/dL (6.3-8.2)
[2022-05-16] MEDS ORDERED: Zofran 4 MG/2 ML VIAL IV ONE (14:43)
[2022-05-16] MEDS ORDERED: MORPHINE SULFATE 2 MG INJ IV ONE (14:43)
[2022-05-16] MEDS ORDERED: Zofran 4 MG/2 ML VIAL ONE (14:47)
[2022-05-16] MEDS ORDERED: MORPHINE SULFATE 2 MG INJ ONE (14:47)
[2022-05-16 14:55] LABS: Appearance TURBID (CLEAR); Bilirubin NEGATIVE (NEGATIVE); Dipstick done @ ? MAIN LAB; Glucose NEGATIVE (NEGATIVE); Ketones TRACE (NEGATIVE); Nitrite NEGATIVE (NEGATIVE); Ph 5.5 (5-6); Protein,Urine Dip 100 (Negative); RBC LARGE Ery/ul (0-5); Urobilinogen 0.2 mg/dL (0-1)
[2022-05-16 15:09] LABS: Bacteria FEW /HPF (NEGATIVE)
[2022-05-16 15:12] LABS: RBC >101 /HPF (0-2)
[2022-05-16 15:13] LABS: Epithelial Cells FEW /HPF (FEW); Urine Cultured Indicated? YES
[2022-05-16 15:50] VITALS: PULSE 58; O2SAT 94
[2022-05-16] MEDS ORDERED: ROCEPHIN 1 Gm-D5w 50 ml Bag** 1 G/50 ML IVPB IV STA (16:00)
[2022-05-16] MEDS ORDERED: ROCEPHIN 1 Gm-D5w 50 ml Bag** 1 G/50 ML IVPB IV ONE (16:08)
[2022-05-16] MEDS ORDERED: Sodium Chloride 0.9% 1000 ML 1,000 ML ONE (16:08)
--- NOTE | 2022-05-16 16:09 | ERPHSYRPT ---
- History of Present Illness Time Seen by Provider: 05/16/22 12:59 Historian: patient Exam Limitations: no limitations Patient Subjective Stated Complaint: C/O right lower abdominal and flank pain. Some N/V. Patient states pain was originally located on his left side but moved to his right side this morning. Triage Nursing Assessment: Patient ambulated back to ED. No SOB. He is alert and oriented. Patient unable to give a urine sample at this time. Pain with palpation to right lower abdomen is noted. Physician History: 86-year-old male with multiple medical problems including coronary artery disease status post CABG, DVT on Coumadin/green filter placement, hypertension, hyperlipidemia, BPH, and CKD with ureteral stones presented to the ER with chief complaint of bilateral flank pain since yesterday. Patient reported initially pain started in the left flank area and gradually moved to the right with associated some hematuria and difficulty urination. No fever or chills reported but does have some nausea. Patient does follow-up with Dr. LANGFORD and is in the process of medical clearance to have some procedure on his prostate. Timing/Duration: yesterday, gradual onset, worse Activities at Onset: rest Quality: aching, sharpness Abdominal Pain Onset Location: flank Pain Radiation: back Severity of Pain-Max: moderate Severity of Pain-Current: mild Modifying Factors: Improves With: nothing Associated Symptoms: nausea Allergies/Adverse Reactions: No Known Drug Allergies Allergy (Verified 05/16/22 13:10) Home Medications: quiNINE sulfate [Quinine Sulfate] 300 mg PO EVENING MEAL PRN 07/28/18 [History] Finasteride 5 mg PO EVENING MEAL 02/11/21 [History] Tamsulosin HCl 0.4 mg PO BID 02/11/21 [History] Cyanocobalamin (Vitamin B-12) [Cyanocobalamin Injection] 1,000 mcg IJ Q30D 10/14/21 [History] Glipizide 2.5 mg [Glucotrol Xl 2.5 MG] 5 mg PO DAILY PRN 10/14/21 [History] Metformin HCl 500 mg [Glucophage 500 MG] 500 mg PO DAILY 10/14/21 [History] Multivitamin 1 each PO DAILY 10/14/21 [History] Warfarin Sodium 4 mg PO CLARIFY 12/09/21 [History] Hx Tetanus, Diphtheria Vaccination/Date Given: Yes Hx Influenza Vaccination/Date Given: No Hx Pneumococcal Vaccination/Date Given: Yes (2020) Immunizations Up to Date: Yes Travel Risk - International Travel Have you traveled outside of the country in past 3 weeks: No - Coronavirus Screening Are you exhibiting any of the following symptoms?: No Close contact with a COVID-19 positive Pt in past 14-21 Days: No - Vaccine Status Have you recieved a Covid-19 vaccination: Yes [employer]: [employer] ([email or web address]) - Vaccination Dates Date of 2cond Vaccination (if applicable): 11/25 21 - Review of Systems Constitutional: No Symptoms Eyes: No Symptoms Ears, Nose, & Throat: No Symptoms Respiratory: No Symptoms Cardiac: No Symptoms Abdominal/Gastrointestinal: Abdominal Pain, Nausea Genitourinary Symptoms: Frequency, Hematuria Musculoskeletal: Back Pain Skin: No Symptoms Neurological: No Symptoms Psychological: No Symptoms Endocrine: No Symptoms Hematologic/Lymphatic: Blood Clots, Easy Bruising Immunological/Allergic: No Symptoms - Past Medical History Pertinent Past Medical History: Yes Neurological History: No Pertinent History ENT History: Cataracts Cardiac History: Coronary Artery Disease, Deep Vein Thrombosis Respiratory History: Pneumonia Endocrine Medical History: Diabetes Type II Musculoskeletal History: Other GI Medical History: Hernia History: Renal Disease, Other Psycho-Social History: No Pertinent History Male Reproductive Disorders: Prostate Problems Other Medical History: Leg Cramps, enlarged prostate, blood clot in l leg and lung years ago, kidney stones, shingles, facial fx, right shoulder injury, quadruple bypass - Past Surgical History Past Surgical History: Yes Neuro Surgical History: No Pertinent History Cardiac: CABG, Pacemaker Respiratory: No Pertinent History Gastrointestinal: No Pertinent History Genitourinary: Other Musculoskeletal: Orthopedic Surgery Male Surgical History: No Pertinent History Other Surgical History: Removed kidney stones at the age of 23, ortho shoulder repair and numbness in right arm, turp 2012, skin cancer removed, RIGHT FOOT LITTLE TOE REMOVAL - Social History Smoking Status: Former smoker Exposure to second hand smoke: No Drug Use: none Patient Lives Alone: No - Nursing Vital Signs Nursing Vital Signs: Initial Vital Signs Temperature 97.6 F 05/16/22 13:11 Pulse Rate 67 05/16/22 13:11 Respiratory Rate 20 05/16/22 13:11 Blood Pressure 174/77 05/16/22 13:11 O2 Sat by Pulse Oximetry 98 05/16/22 13:11 Pain Scale Pain Intensity 4 - Physical Exam General Appearance: no apparent distress, alert Eye Exam: eyes nml inspection Ears, Nose, Throat Exam: normal ENT inspection Neck Exam: normal inspection, full range of motion Respiratory Exam: normal breath sounds, lungs clear Cardiovascular Exam: regular rate/rhythm, normal heart sounds Gastrointestinal/Abdomen Exam: soft, normal bowel sounds, tenderness (Bilateral flank with no guarding or rebound tenderness. Positive CVA tenderness bilaterally.) Back Exam: normal inspection, CVA tenderness Extremity Exam: normal inspection, pelvis stable Neurologic Exam: alert, oriented x 3, cooperative Skin Exam: normal color SpO2 Interpretation: normal SpO2: 94 O2 Delivery: Room Air Ordered Tests: Active Orders 24 hr Category Date Time Status IV Insertion STAT Care 05/16/22 13:42 Active NPO (ED) STAT Care 05/16/22 13:42 Active ABDOMEN AND PELVIS W/0 CONTRAS [CT] Stat Exams 05/16/22 13:42 Taken CBC W DIFF Stat Lab 05/16/22 13:20 Completed CMP Stat Lab 05/16/22 13:20 Completed CULTURE,URINE Stat Lab 05/16/22 14:46 Received PROTIME WITH INR Stat Lab 05/16/22 13:20 Completed UA W/RFX CULTURE Stat Lab 05/16/22 14:46 Completed Medication Summary Generic Name Dose Route Start Last Admin Trade Name Freq PRN Reason Stop Dose Admin Ceftriaxone Sodium/Dextrose 1 g in 50 mls @ 100 mls/hr 05/16/22 16:00 Rocephin 1 Gm-D5w 50 Ml Bag IV 05/16/22 16:29 STAT STA Sodium Chloride 1,000 mls @ 100 mls/hr 05/16/22 16:15 Sodium Chloride 0.9% 1000 Ml IV 06/15/22 16:14 .Q10H GABE Discontinued Medications Generic Name Dose Route Start Last Admin Trade Name Freq PRN Reason Stop Dose Admin Morphine Sulfate 2 mg 05/16/22 14:43 05/16/22 14:48 Morphine Sulfate 2 Mg/Ml Inj IV 05/16/22 14:44 2 mg STAT ONE Administration Morphine Sulfate Confirm 05/16/22 14:47 Morphine Sulfate 2 Mg/Ml Inj Administered 05/16/22 14:48 Dose 2 mg .ROUTE .STK-MED ONE Ondansetron HCl 4 mg 05/16/22 14:43 05/16/22 14:48 Ondansetron Hcl 4 Mg/2 Ml Vial IV 05/16/22 14:44 4 mg STAT ONE Administration Ondansetron HCl Confirm 05/16/22 14:47 Ondansetron Hcl 4 Mg/2 Ml Vial Administered 05/16/22 14:48 Dose 4 mg .ROUTE .K-MED ONE Lab/Rad Data: Laboratory Result Diagrams 05/16/22 13:20 05/16/22 13:20 Laboratory Results 05/16/22 05/16/22 05/16/22 Range/Units 14:46 13:20 13:20 WBC (4.0-10.5) x10^3/uL RBC (4.1-5.6) x10^6/uL Hgb (12.5-18.0) g/dL Hct (42-50) % MCV (78-100) fL MCH (26-32) pg MCHC (32-36) g/dL RDW (11.5-14.0) % Plt Count (150-450) x10^3/uL MPV (7.5-11.0) fL Gran % (36.0-66.0) % Immature Gran % (Auto) (0.00-0.4) % Nucleat RBC Rel Count (0.00-0.1) % Eos # (Auto) (0-0.5) x10^3/uL Immature Gran # (Auto) (0.00-0.03) x10^3u/L Absolute Lymphs (auto) (1.0-4.6) x10^3/uL Absolute Monos (auto) (0.0-1.3) x10^3/uL Absolute Nucleated RBC (0.00-0.01) x10^3u/L Lymphocytes % (24.0-44.0) % Monocytes % (0.0-12.0) % Eosinophils % (0.00-5.0) % Basophils % (0.0-0.4) % Absolute Granulocytes (1.4-6.9) x10^3/uL Basophils # (0-0.4) x10^3/uL PT 32.4 H (9.4-12.5) SECONDS INR 3.42 H (0.8-3.0) Sodium 141 (137-145) mmol/L Potassium 4.8 (3.5-5.1) mmol/L Chloride 112 H (98-107) mmol/L Carbon Dioxide 15 L* (22-30) mmol/L Anion Gap 18.7 H (5-15) MEQ/L BUN 50 H (9-20) mg/dL Creatinine 4.51 H (0.66-1.25) mg/dL Estimated GFR 13.3 ML/MIN Glucose 185 H (74-106) mg/dL Calcium 9.2 (8.4-10.2) mg/dL Total Bilirubin 0.90 (0.2-1.3) mg/dL AST 21 (17-59) U/L ALT 14 (0-50) U/L Alkaline Phosphatase 79 (38-126) U/L Serum Total Protein 7.1 (6.3-8.2) g/dL Albumin 4.1 (3.5-5.0) g/dL Urinalys Dipstick Clnc MAIN LAB Urine Color BROWN A (YELLOW) Urine Appearance TURBID A (CLEAR) Urine pH 5.5 (5-6) Ur Specific Plain 1.020 (1.005-1.025) POC Urine Protein Conf 100 A (Negative) Urine Ketones TRACE A (NEGATIVE) Urine Nitrite NEGATIVE (NEGATIVE) Urine Bilirubin NEGATIVE (NEGATIVE) Urine Urobilinogen 0.2 (0-1) mg/dL Urine Leukocytes NEGATIVE (NEGATIVE) Urine WBC (Auto) 11-15 A (0-5) /HPF Urine RBC (Auto) >101 A (0-2) /HPF U Epithel Cells (Auto) FEW (FEW) /HPF Urine Bacteria (Auto) FEW A (NEGATIVE) /HPF Urine RBC LARGE A (0-5) Vicente/ul Ur Culture Indicated? YES Urine Glucose NEGATIVE (NEGATIVE) mg/dL 05/16/22 Range/Units 13:20 WBC 12.0 H (4.0-10.5) x10^3/uL RBC 4.20 (4.1-5.6) x10^6/uL Hgb 13.1 (12.5-18.0) g/dL Hct 41.9 L (42-50) % MCV 99.8 (78-100) fL MCH 31.2 (26-32) pg MCHC 31.3 L (32-36) g/dL RDW 12.9 (11.5-14.0) % Plt Count 229 (150-450) x10^3/uL MPV 11.0 (7.5-11.0) fL Gran % 86.3 H (36.0-66.0) % Immature Gran % (Auto) 0.6 H (0.00-0.4) % Nucleat RBC Rel Count 0.0 (0.00-0.1) % Eos # (Auto) 0.02 (0-0.5) x10^3/uL Immature Gran # (Auto) 0.07 H (0.00-0.03) x10^3u/L Absolute Lymphs (auto) 0.93 L (1.0-4.6) x10^3/uL Absolute Monos (auto) 0.56 (0.0-1.3) x10^3/uL Absolute Nucleated RBC 0.00 (0.00-0.01) x10^3u/L Lymphocytes % 7.8 L (24.0-44.0) % Monocytes % 4.7 (0.0-12.0) % Eosinophils % 0.2 (0.00-5.0) % Basophils % 0.4 (0.0-0.4) % Absolute Granulocytes 10.33 H (1.4-6.9) x10^3/uL Basophils # 0.05 (0-0.4) x10^3/uL PT (9.4-12.5) SECONDS INR (0.8-3.0) Sodium (137-145) mmol/L Potassium (3.5-5.1) mmol/L Chloride (98-107) mmol/L Carbon Dioxide (22-30) mmol/L Anion Gap (5-15) MEQ/L BUN (9-20) mg/dL Creatinine (0.66-1.25) mg/dL Estimated GFR ML/MIN Glucose (74-106) mg/dL Calcium (8.4-10.2) mg/dL Total Bilirubin (0.2-1.3) mg/dL AST (17-59) U/L ALT (0-50) U/L Alkaline Phosphatase (38-126) U/L Serum Total Protein (6.3-8.2) g/dL Albumin (3.5-5.0) g/dL Urinalys Dipstick Clnc Urine Color (YELLOW) Urine Appearance (CLEAR) Urine pH (5-6) Ur Specific Plain (1.005-1.025) POC Urine Protein Conf (Negative) Urine Ketones (NEGATIVE) Urine Nitrite (NEGATIVE) Urine Bilirubin (NEGATIVE) Urine Urobilinogen (0-1) mg/dL Urine Leukocytes (NEGATIVE) Urine WBC (Auto) (0-5) /HPF Urine RBC (Auto) (0-2) /HPF U Epithel Cells (Auto) (FEW) /HPF Urine Bacteria (Auto) (NEGATIVE) /HPF Urine RBC (0-5) Vicente/ul Ur Culture Indicated? Urine Glucose (NEGATIVE) mg/dL - Progress Progress: improved Progress Note: 05/16/22 16:06 86-year-old is evaluated for bilateral flank pain with some urinary symptoms. Given symptomatic treatment for pain and fluids. Work-up showed white count 12, chemistry profile showed worsening of renal functions with baseline creat inine around 2.7 and today 4.5 with low bicarb of 15 and also have some element of UTI. Given a dose of Rocephin. Obtain CT abdomen pelvis which showed bilateral ureteral stone with obstruction along with hydroureteronephrosis. It also showed old compression L1 fracture with mild retropulsion thickened urinary bladder and enlarged prostate. I believe patient needs emergent decompression to avoid further worsening of renal failure. Discussed with Dr. Mykel fuentes and Dr. Kc urology at [facility], reviewed history, work-up and patient is excepted for transfer. Plan discussed with patient and his daughter understand and agree with it. 05/16/22 16:10 Counseled pt/family regarding: lab results, diagnosis, need for follow-up, rad results - Departure Departure Disposition: Transfer Clinical Impression: Acute bilateral obstructive uropathy, Acute UTI, Acute on chronic renal failure, Dehydration Condition: Stable Critical Care Time: No Referrals: JOHN SONI MD [Primary Care Provider] - Follow up/PCP as directed
[2022-05-16] MEDS ORDERED: Sodium Chloride 0.9% 1000 ML 1,000 ML IV SCH (16:15)
[2022-05-16 16:25] VITALS: BP 174/75
--- NOTE | 2022-05-16 17:40 | XRAY ---
Indication: Bilateral flank pain. Multiple contiguous axial images obtained through the abdomen and pelvis without contrast using renal stone protocol. Comparison: December 26, 2020 Lung bases again demonstrates small right effusion, mild bibasilar compressive atelectasis, and scattered fibrosis/scarring. Heart remains borderline enlarged again with pacer leads. New small hiatal hernia. Distal right ureter demonstrates new 2-3 micro-calculi, largest 1 cm approximately 3 cm proximal to the UVJ. Left distal ureter also demonstrates at least 3 new calculi, largest 6-7 mm just proximal to the UVJ. Both proximal ureters are slightly prominent up to 8-9 mm in both kidneys also demonstrates mild hydronephrosis consistent with partial obstructive uropathy. Urinary bladder is partially distended with new 7 mm calculus posteriorly. Right kidney demonstrates additional micro-calculi in the mid to lower pole. Noncontrasted stomach and bowel loops nonobstructed with normal appendix. Again scattered colonic diverticulosis and a large prostate gland. No free fluid/air. Remaining liver, gallbladder, pancreas, spleen, adrenal glands, and bladder are unremarkable for noncontrast exam. There remains moderate scattered aortoiliac calcifications without AAA. Again incidental IVC filter. Osseous structures intact again with osteopenia, mild/moderate multilevel degenerative spondylosis, and remote L1 compression fracture. Again small incidental fatty bilateral inguinal hernia. Impression: 1. New multiple bilateral distal ureteral micro-calculi producing obstructive uropathy as detailed. Also new right renal and urinary bladder micro-calculi. 2. Again borderline cardiomegaly with small right effusion and bibasilar atelectasis. 3. New small hiatal hernia. 4. Again chronic findings including colonic diverticulosis, enlarged prostate gland, arteriosclerotic disease, bilateral fatty inguinal hernias, and chronic bony findings. Comment: Preliminary interpretation made by [facility]. No critical discrepancy.
== END 2022-05-16 16:27 | disposition short-term general hospital (02) ==
LOC: ED 12:58
DX: N13.2 Hydronephrosis with renal and ureteral calculous obstruction (principal); N39.0 Urinary tract infection, site not specified; I12.9 Hypertensive chronic kidney disease with stage 1 through stage 4 chronic kidney disease, or unspecified chronic kidney disease; E11.22 Type 2 diabetes mellitus with diabetic chronic kidney disease; N18.9 Chronic kidney disease, unspecified; N17.9 Acute kidney failure, unspecified; E86.0 Dehydration; R10.9 Unspecified abdominal pain; R11.0 Nausea; E78.5 Hyperlipidemia, unspecified; Z79.01 Long term (current) use of anticoagulants; Z79.84 Long term (current) use of oral hypoglycemic drugs; Z79.899 Other long term (current) drug therapy; Z87.442 Personal history of urinary calculi
CPT/HCPCS: 36000; 36415; 74176; 80053; 81015; 85025; 85610; 87086; 93005; 96365; 96374; 96375; 99285; P9612; J0696; J2270; J2405

== ENCOUNTER 2022-08-04 10:44 | Inpatient (IN) | payer MEDICARE, OTHER ==
[2022-08-04] MEDS ORDERED: VANCOCIN INJECTION IV ONE (10:45)
[2022-08-04 11:15] LABS: Absolute Neutrophil Ct (ANC) 7.29 x10^3/uL (1.4-6.9); BASOPHIL % 0.8 % (0.0-0.4); Basophil (Absolute #) 0.07 x10^3/uL (0-0.4); Eosinophil % 2.4 % (0.00-5.0); Eosinophil (Absolute #) 0.22 x10^3/uL (0-0.5); Hematocrit 37.1 % (42-50); Hemoglobin 11.2 g/dL (12.5-18.0); IMMATURE GRAN # 0.04 x10^3u/L (0.00-0.03); IMMATURE GRAN % 0.4 % (0.00-0.4); Lymphocyte (Absolute #) 1.12 x10^3/uL (1.0-4.6); Lymphocytes % 12.1 % (24.0-44.0); Mean Cell Volume 102.8 fL (78-100); Mean Corpuscular Hgb Concent. 30.2 g/dL (32-36); Mean Platelet Volume 10.1 fL (7.5-11.0); Monocyte (Absolute #) 0.51 x10^3/uL (0.0-1.3); Monocytes % 5.5 % (0.0-12.0); Neutrophil % 78.8 % (36.0-66.0); Platelet Count 250 x10^3/uL (150-450); Red Blood Count 3.61 x10^6/uL (4.1-5.6); Red Cell Distribution Width 12.1 % (11.5-14.0); White Blood Count 9.3 x10^3/uL (4.0-10.5)
--- NOTE | 2022-08-04 11:35 | XRAY ---
Indication: Amputation osteomyelitis. Comparison: June 03, 2022 3 nonweightbearing views right foot again demonstrates lateral 5th metatarsal head soft tissue swelling with new tiny subcutaneous air favoring gas-forming bacterial infection. No underlying osseous destructive process/osteomyelitis. Stable osteopenia, pes planus, 5th toe amputation, tiny plantar heel spur, and extensive scattered vascular calcifications.
[2022-08-04 11:38] LABS: ALBUMIN 3.7 g/dL (3.5-5.0); ANION GAP 12.8 MEQ/L (5-15); BILIRUBIN,TOTAL 0.5 mg/dL (0.2-1.3); Calcium 8.6 mg/dL (8.4-10.2); Creatinine 1 2.87 mg/dL (0.66-1.25); EST GLOMERULAR FILTRATION RATE 22.4 ML/MIN; Potassium 4.7 mmol/L (3.5-5.1); Total Protein 6.3 g/dL (6.3-8.2)
[2022-08-04] MEDS ORDERED: VANCOCIN IV SCH (12:00)
[2022-08-04] MEDS ORDERED: SODIUM CHLORIDE 0.9% IV SCH (12:00)
[2022-08-04] MEDS ORDERED: Lactated Ringers 1,000 ML IV ONE (12:14)
[2022-08-04 12:15] LABS: INFLUENZA A NEGATIVE (NEGATIVE); INFLUENZA B NEGATIVE (NEGATIVE); RESPIRATORY SYNCTIAL VIRUS NEGATIVE (Negative); SARS-CoV-2 Xpert Express NEGATIVE (NEGATIVE)
[2022-08-04] MEDS ORDERED: Marcaine Mpf 0.5% Vial 30 Ml ONE (12:28)
[2022-08-04] MEDS ORDERED: Xylocaine 1% Vial 30 ML PF IJ ONE (12:29)
[2022-08-04] MEDS: VANCOCIN 500 MG VIAL*** 500 MG in Sodium Chloride 100ML MINI-BAG PLUS 100 ML IV SCH (12:30)
[2022-08-04] MEDS: Lactated Ringers 1,000 ML IV SCH (12:30)
[2022-08-04] MEDS ORDERED: QUININE SULFATE 324 MG PO PRN (12:36)
[2022-08-04] MEDS ORDERED: Glucotrol Xl 2.5 MG PO PRN (13:00)
[2022-08-04] MEDS ORDERED: MEDICATION INTERVENTION MC SCH (13:00)
[2022-08-04] MEDS ORDERED: Hydromorphone 1 mg/ml Injection IV PRN (14:00)
[2022-08-04] MEDS ORDERED: VANCOMYCIN 1 GRAM/200 ML BAG 1 GM/200 ML PIGGYBACK IV SCH (14:00)
[2022-08-04] MEDS: Piperacillin/Tazobactam 2.25 GM 2.25 GM in Sodium Chloride 100ML MINI-BAG PLUS 100 ML IV SCH ×2 (14:19→22:50)
[2022-08-04] MEDS: Ecotrin 325 MG PO SCH (15:56)
[2022-08-04] MEDS: Prozac 20 MG PO SCH (16:31)
[2022-08-04] MEDS: SODIUM BICARBONATE PO SCH (16:31)
[2022-08-04] MEDS: Proscar 5 MG PO SCH (16:31)
[2022-08-04] MEDS: Flomax 0.4 MG PO SCH (16:31)
[2022-08-04] MEDS ORDERED: PIPERACILLIN/TAZOBACTAM 3.375 GM in Sodium Chloride 100ML MINI-BAG PLUS 100 ML IV SCH (18:00)
[2022-08-05 05:13] LABS: Absolute Neutrophil Ct (ANC) 5.96 x10^3/uL (1.4-6.9); BASOPHIL % 0.9 % (0.0-0.4); Basophil (Absolute #) 0.07 x10^3/uL (0-0.4); Eosinophil % 2.9 % (0.00-5.0); Eosinophil (Absolute #) 0.23 x10^3/uL (0-0.5); Hemoglobin 9.3 g/dL (12.5-18.0); IMMATURE GRAN # 0.03 x10^3u/L (0.00-0.03); IMMATURE GRAN % 0.4 % (0.00-0.4); Lymphocyte (Absolute #) 1.07 x10^3/uL (1.0-4.6); Lymphocytes % 13.6 % (24.0-44.0); Mean Cell Volume 99.3 fL (78-100); Mean Corpuscular Hemoglobin 30.8 pg (26-32); Mean Platelet Volume 10.6 fL (7.5-11.0); Monocyte (Absolute #) 0.49 x10^3/uL (0.0-1.3); Monocytes % 6.2 % (0.0-12.0); Platelet Count 221 x10^3/uL (150-450); Red Blood Count 3.02 x10^6/uL (4.1-5.6); Red Cell Distribution Width 12.3 % (11.5-14.0); White Blood Count 7.9 x10^3/uL (4.0-10.5)
[2022-08-05] MEDS: Piperacillin/Tazobactam 2.25 GM 2.25 GM in Sodium Chloride 100ML MINI-BAG PLUS 100 ML IV SCH ×3 (06:16→22:10)
--- NOTE | 2022-08-05 08:20 | OP ---
SURGERY DATE/TIME: 08/04/2022 1241 PREOPERATIVE DIAGNOSES: 1) Gas gangrene right foot. 2) Osteomyelitis fifth metatarsal head. 3) Diabetic foot ulcer, chronic. 4) Cellulitis right foot. POSTOPERATIVE DIAGNOSES: 1) Gas gangrene right foot. 2) Osteomyelitis fifth metatarsal head. 3) Diabetic foot ulcer, chronic. 4) Cellulitis right foot. PROCEDURE: Incision and drainage with bone debridement right foot as well as partial fifth metatarsal amputation right foot. SURGEON: Roni Davison DPM. SOIL CONSERVATION AIDE: None. ANESTHESIA: Local. See injectables for details. HEMOSTASIS: Pressure dressing. ESTIMATED BLOOD LOSS: Less than 20 cc. MATERIALS: 3-0 Nylon, 0.25 inch Iodoform packing. INJECTABLES: 30 cc of a 1:1 mixture of 1% lidocaine plain and 0.5% bupivacaine plain injected in ankle block-type fashion to the right ankle. INDICATION FOR SURGERY: Uvaldo is a very pleasant 86-year-old male well known to my service for osteomyelitis of the fifth digit. Over the course the patient suffered an amputation. He did develop a chronic nonhealing ulceration. He did have a consultation with vascular. Despite him having significant vascular calcifications to the right foot on x-ray, his Doppler's appeared to be adequate up until the site of his ulceration. The patient was given options approximately in April however had other pressing medical conditions that he dealt with at that time and was not interested in pursuing and if not clinically infected. At this time the patient presents along with his family, his daughter and his granddaughter, concerned over some increased pain and swelling to the right foot. The patient did have x-rays that demonstrated some gas gangrene and from that standpoint he wished to proceed with surgical intervention so as not to become septic, prolong or worsen his condition. At this time the patient understands all risks, complications and benefits of surgical intervention including but not limited to repeat infection, possibility of delayed skin healing, nonskin healing, possibility of need for surgical intervention was discussed with the patient but at this time the amputation site would be left open and allowed to drain. At that time we will proceed in a second stage to this procedure to perform an abductor digiti minini muscle flap as well as secondary closure of the wound and also obtain clean margins. The patient understands this and wishes to proceed at this time. DESCRIPTION OF PROCEDURE AND FINDINGS: The patient is brought into the OR and placed on the OR table in the supine position. At this time under aseptic technique an ankle block was performed to the patient's right ankle utilizing 30 cc of a 1:1 mixture of 1% lidocaine plain and 0.5% bupivacaine plain. Following this the right foot was prepped and draped in the typical sterile fashion and lowered onto the surgical field. At this time attention was directed to the lateral aspect of the right foot where a skin marker was utilized to draw a line as well as an elliptical plane in site around the ulceration excising the ulceration in toto. Full thickness dissection was carried out utilizing a 15 blade down to the level of bone incising the ulceration and sending that for path. At this time the incision was deepened around the planes along the bone leaving full thickness flaps. Following this a sagittal saw was utilized to resect a partial fifth metatarsal which was then handed off the field for pathological assessment. Soft tissue cultures were obtained at this time and handed off the field for permanent. At this time 1 liter of Bactisure was then utilized to clean out the surgical site of any residual infection and then 3 liters of sterile saline was utilized to cleanse the site of infection and Bactisure. Skin was then freshened up noting a healthy bleeding edge on both side. Following this, a trauma suture was performed of figure-of-8 was performed in order to coapt the skin edges proximally and distally. 0.25% inch Iodoform packing doused in iodine was introduced. Following this, a dressing consisting of Betadine, Adaptic, 4x4, Kerlix and ABD as well as JACKIE were applied to the patient's right foot. The patient then was reversed from anesthesia and returned to the postoperative anesthesia care unit with vital signs stable and vascular status intact. The patient handled the anesthesia as well as the procedure without significant complications. Postoperative orders as indicated in the patient's discharge chart.
[2022-08-05] MEDS: Ecotrin 325 MG PO SCH (08:26)
[2022-08-05] MEDS: NORCO 5/325 MG PO PRN ×2 (08:26→13:09)
[2022-08-05] MEDS: VANCOCIN 500 MG VIAL*** 500 MG in Sodium Chloride 100ML MINI-BAG PLUS 100 ML IV SCH (08:27)
--- NOTE | 2022-08-05 09:47 | PCM.NOTE ---
Date and Time: 08/05/22 0944 Subjective Assessment: patient had some pain in the toe this morning, thinks his block is wearing off. he denies any other problems or concerns. Objective Exam General Appearance: no apparent distress Neurologic Exam: alert, oriented x 3 Skin Exam: normal color, warm, dry Wound Assessment: Skin/Wound Assessment Wound/Incision Assessment Start: 08/04/22 11:16 Text: Status: Active Freq: Q4H Protocol: Document 08/05/22 08:00 AW (Rec: 08/05/22 09:09 AW [id number]) Wound/Incision Assessment Right Foot Wound Assessment Shift Assessment Wound Type Incision Wound Stage Non Pressure Wound Dressing Status Dry & Intact Drainage Amount None Secondary Dressing ever wrap Comment dressing inplace from surgery- dressings not to be removed - no drainage, clean dry and intact - remains true Wound Photo Photo Taken No Respiratory Exam: normal breath sounds, lungs clear, No respiratory distress Cardiovascular Exam: regular rate/rhythm, normal heart sounds Gastrointestinal/Abdomen Exam: soft, No tenderness, No mass Extremity Exam: other (right foot well wrapped, no obvious bleeding) OBJECTIVE DATA Vital Signs: Vital Signs - 24 hr Temp Pulse Resp BP BP Pulse Ox 08/05/22 08:00 16 08/05/22 07:16 97.7 F 70 16 147/64 91 L 08/05/22 04:00 98.1 F 62 17 151/70 94 L 08/05/22 00:00 17 08/04/22 23:44 97.8 F 63 17 160/69 98 08/04/22 20:00 97.3 F 65 18 95 08/04/22 16:00 18 08/04/22 15:45 98.0 F 65 17 133/64 95 08/04/22 14:44 98.4 F 97 H 18 128/89 95 08/04/22 14:01 98 F 88 17 127/72 95 08/04/22 14:00 98.4 F 97 H 18 95 08/04/22 12:10 97.8 F 91 H 18 143/63 96 08/04/22 12:00 16 08/04/22 11:16 97.8 F 91 H 18 143/63 96 08/04/22 11:13 97.8 F 91 H 18 143/63 96 08/04/22 10:44 97.8 F 91 H 18 143/63 96 Pain Assessment - Last Documented Pain Intensity 6 Pain Scale Used 0-10 Pain Scale Intake and Output: Intake & Output 08/02/22 08/03/22 08/04/22 08/05/22 11:59 11:59 11:59 11:59 Intake Total 1516 Balance 1516 Weight 71.1 kg 71.1 kg Lab Results: Lab Results-Last 24 Hours 08/04/22 08/04/22 08/04/22 Range/Units 11:00 11:00 11:00 WBC 9.3 (4.0-10.5) x10^3/uL RBC 3.61 L (4.1-5.6) x10^6/uL Hgb 11.2 L (12.5-18.0) g/dL Hct 37.1 L (42-50) % MCV 102.8 H (78-100) fL MCH 31.0 (26-32) pg MCHC 30.2 L (32-36) g/dL RDW 12.1 (11.5-14.0) % Plt Count 250 (150-450) x10^3/uL MPV 10.1 (7.5-11.0) fL Gran % 78.8 H (36.0-66.0) % Immature Gran % (Auto) 0.4 (0.00-0.4) % Nucleat RBC Rel Count 0.0 (0.00-0.1) % Eos # (Auto) 0.22 (0-0.5) x10^3/uL Immature Gran # (Auto) 0.04 H (0.00-0.03) x10^3u/L Absolute Lymphs (auto) 1.12 (1.0-4.6) x10^3/uL Absolute Monos (auto) 0.51 (0.0-1.3) x10^3/uL Absolute Nucleated RBC 0.00 (0.00-0.01) x10^3u/L Lymphocytes % 12.1 L (24.0-44.0) % Monocytes % 5.5 (0.0-12.0) % Eosinophils % 2.4 (0.00-5.0) % Basophils % 0.8 (0.0-0.4) % Absolute Granulocytes 7.29 H (1.4-6.9) x10^3/uL Basophils # 0.07 (0-0.4) x10^3/uL ESR 67 H (0-15) mm/hr Sodium 140 (137-145) mmol/L Potassium 4.7 (3.5-5.1) mmol/L Chloride 109 H (98-107) mmol/L Carbon Dioxide 23 (22-30) mmol/L Anion Gap 12.8 (5-15) MEQ/L BUN 33 H (9-20) mg/dL Creatinine 2.87 H (0.66-1.25) mg/dL Estimated GFR 22.4 ML/MIN Glucose 164 H (74-106) mg/dL POC Glucometer (74 to 106) mg/dL Lactic Acid (0.4-2.0) Calcium 8.6 (8.4-10.2) mg/dL Total Bilirubin 0.50 (0.2-1.3) mg/dL AST 26 (17-59) U/L ALT 17 (0-50) U/L Alkaline Phosphatase 106 (38-126) U/L Serum Total Protein 6.3 (6.3-8.2) g/dL Albumin 3.7 (3.5-5.0) g/dL Influenza Type A Ag (NEGATIVE) Influenza Type B Ag (NEGATIVE) RSV (PCR) (Negative) SARS-CoV-2 (PCR) (NEGATIVE) 08/04/22 08/04/22 08/05/22 Range/Units 11:03 11:45 04:30 WBC 7.9 (4.0-10.5) x10^3/uL RBC 3.02 L (4.1-5.6) x10^6/uL Hgb 9.3 L (12.5-18.0) g/dL Hct 30.0 L (42-50) % MCV 99.3 (78-100) fL MCH 30.8 (26-32) pg MCHC 31.0 L (32-36) g/dL RDW 12.3 (11.5-14.0) % Plt Count 221 (150-450) x10^3/uL MPV 10.6 (7.5-11.0) fL Gran % 76.0 H (36.0-66.0) % Immature Gran % (Auto) 0.4 (0.00-0.4) % Nucleat RBC Rel Count 0.0 (0.00-0.1) % Eos # (Auto) 0.23 (0-0.5) x10^3/uL Immature Gran # (Auto) 0.03 (0.00-0.03) x10^3u/L Absolute Lymphs (auto) 1.07 (1.0-4.6) x10^3/uL Absolute Monos (auto) 0.49 (0.0-1.3) x10^3/uL Absolute Nucleated RBC 0.00 (0.00-0.01) x10^3u/L Lymphocytes % 13.6 L (24.0-44.0) % Monocytes % 6.2 (0.0-12.0) % Eosinophils % 2.9 (0.00-5.0) % Basophils % 0.9 (0.0-0.4) % Absolute Granulocytes 5.96 (1.4-6.9) x10^3/uL Basophils # 0.07 (0-0.4) x10^3/uL ESR (0-15) mm/hr Sodium (137-145) mmol/L Potassium (3.5-5.1) mmol/L Chloride (98-107) mmol/L Carbon Dioxide (22-30) mmol/L Anion Gap (5-15) MEQ/L BUN (9-20) mg/dL Creatinine (0.66-1.25) mg/dL Estimated GFR ML/MIN Glucose (74-106) mg/dL POC Glucometer (74 to 106) mg/dL Lactic Acid 3.9 H (0.4-2.0) Calcium (8.4-10.2) mg/dL Total Bilirubin (0.2-1.3) mg/dL AST (17-59) U/L ALT (0-50) U/L Alkaline Phosphatase (38-126) U/L Serum Total Protein (6.3-8.2) g/dL Albumin (3.5-5.0) g/dL Influenza Type A Ag NEGATIVE (NEGATIVE) Influenza Type B Ag NEGATIVE (NEGATIVE) RSV (PCR) NEGATIVE (Negative) SARS-CoV-2 (PCR) NEGATIVE (NEGATIVE) 08/05/22 08/05/22 Range/Units 04:30 06:56 WBC (4.0-10.5) x10^3/uL RBC (4.1-5.6) x10^6/uL Hgb (12.5-18.0) g/dL Hct (42-50) % MCV (78-100) fL MCH (26-32) pg MCHC (32-36) g/dL RDW (11.5-14.0) % Plt Count (150-450) x10^3/uL MPV (7.5-11.0) fL Gran % (36.0-66.0) % Immature Gran % (Auto) (0.00-0.4) % Nucleat RBC Rel Count (0.00-0.1) % Eos # (Auto) (0-0.5) x10^3/uL Immature Gran # (Auto) (0.00-0.03) x10^3u/L Absolute Lymphs (auto) (1.0-4.6) x10^3/uL Absolute Monos (auto) (0.0-1.3) x10^3/uL Absolute Nucleated RBC (0.00-0.01) x10^3u/L Lymphocytes % (24.0-44.0) % Monocytes % (0.0-12.0) % Eosinophils % (0.00-5.0) % Basophils % (0.0-0.4) % Absolute Granulocytes (1.4-6.9) x10^3/uL Basophils # (0-0.4) x10^3/uL ESR (0-15) mm/hr Sodium (137-145) mmol/L Potassium (3.5-5.1) mmol/L Chloride (98-107) mmol/L Carbon Dioxide (22-30) mmol/L Anion Gap (5-15) MEQ/L BUN (9-20) mg/dL Creatinine (0.66-1.25) mg/dL Estimated GFR ML/MIN Glucose (74-106) mg/dL POC Glucometer 83 (74 to 106) mg/dL Lactic Acid (0.4-2.0) Calcium (8.4-10.2) mg/dL Total Bilirubin (0.2-1.3) mg/dL AST (17-59) U/L ALT (0-50) U/L Alkaline Phosphatase (38-126) U/L Serum Total Protein (6.3-8.2) g/dL Albumin (3.5-5.0) g/dL Influenza Type A Ag (NEGATIVE) Influenza Type B Ag (NEGATIVE) RSV (PCR) (Negative) SARS-CoV-2 (PCR) (NEGATIVE) Radiology Exams: Radiology Procedures Category Date Time Status FOOT (MINIMUM 3 VIEWS) Stat Exams 08/04/22 10:55 Completed Assessment/Plan (1) Osteomyelitis Current Visit: No Status: Acute Assessment & Plan: cultures pending, curently on vanc/zosyn. will continue as we await culture data. will likely need IV antibiotic therapy, offered swingbed program to family as possible option after pending surgical procedure with podiatry Code(s): M86.9 - OSTEOMYELITIS, UNSPECIFIED (2) Acute on chronic renal failure Current Visit: No Status: Acute Assessment & Plan: mild improvement with creatinine 2.6 today Code(s): N17.9 - ACUTE KIDNEY FAILURE, UNSPECIFIED; N18.9 - CHRONIC KIDNEY DISEASE, UNSPECIFIED (3) CHF (congestive heart failure) Current Visit: No Status: Acute Qualifiers: Code(s): I50.9 - HEART FAILURE, UNSPECIFIED
[2022-08-05] MEDS ORDERED: NON-FORMULARY ITEM (Sodium Bicarbonate 650 MG Tablet) PO SCH (10:00)
[2022-08-05] MEDS ORDERED: MOTRIN 600 MG PO PRN (11:34)
--- NOTE | 2022-08-05 14:31 | PCM.NOTE ---
Date and Time: 08/05/22 142 Subjective Assessment: POD # 1. Doing well. some pain this AM better now with pain control. Denies any any constitutional symptoms of infection. No other pedal complaints at this time. Physical Exam - General General Appearance: no apparent distress - Neuro Neurologic: Epicritic and protopathic (Absent) - Vascular Peripheral Pulses: Posterior tibialis: 1+, Dorsalis-Pedis: 1+ Capillary Refill Time: < 3 seconds Varicosities: Negtive Edema: None Skin: Supple, not atrophic - Narrative Narrative Physical Exam: Podiatry Physical Exam OBJECTIVE DATA Vital Signs: Vital Signs - 24 hr Temp Pulse Resp BP BP Pulse Ox 08/05/22 12:00 16 08/05/22 11:35 97.3 F 86 16 125/60 93 L 08/05/22 08:00 16 08/05/22 07:16 97.7 F 70 16 147/64 91 L 08/05/22 04:00 98.1 F 62 17 151/70 94 L 08/05/22 00:00 17 08/04/22 23:44 97.8 F 63 17 160/69 98 08/04/22 20:00 97.3 F 65 18 95 08/04/22 16:00 18 08/04/22 15:45 98.0 F 65 17 133/64 95 08/04/22 14:44 98.4 F 97 H 18 128/89 95 Pain Assessment - Last Documented Pain Intensity 6 Pain Scale Used 0-10 Pain Scale Intake and Output: Intake & Output 08/03/22 08/04/22 08/05/22 08/06/22 11:59 11:59 11:59 11:59 Intake Total 1756 240 Balance 1756 240 Weight 71.1 kg 71.1 kg Lab Results: Lab Results-Last 24 Hours 08/04/22 08/05/22 08/05/22 Range/Units 11:00 04:30 04:30 WBC 7.9 (4.0-10.5) x10^3/uL RBC 3.02 L (4.1-5.6) x10^6/uL Hgb 9.3 L (12.5-18.0) g/dL Hct 30.0 L (42-50) % MCV 99.3 (78-100) fL MCH 30.8 (26-32) pg MCHC 31.0 L (32-36) g/dL RDW 12.3 (11.5-14.0) % Plt Count 221 (150-450) x10^3/uL MPV 10.6 (7.5-11.0) fL Gran % 76.0 H (36.0-66.0) % Immature Gran % (Auto) 0.4 (0.00-0.4) % Nucleat RBC Rel Count 0.0 (0.00-0.1) % Eos # (Auto) 0.23 (0-0.5) x10^3/uL Immature Gran # (Auto) 0.03 (0.00-0.03) x10^3u/L Absolute Lymphs (auto) 1.07 (1.0-4.6) x10^3/uL Absolute Monos (auto) 0.49 (0.0-1.3) x10^3/uL Absolute Nucleated RBC 0.00 (0.00-0.01) x10^3u/L Lymphocytes % 13.6 L (24.0-44.0) % Monocytes % 6.2 (0.0-12.0) % Eosinophils % 2.9 (0.00-5.0) % Basophils % 0.9 (0.0-0.4) % Absolute Granulocytes 5.96 (1.4-6.9) x10^3/uL Basophils # 0.07 (0-0.4) x10^3/uL ESR 67 H (0-15) mm/hr Glucose (74-106) mg/dL POC Glucometer (74 to 106) mg/dL 08/05/22 08/05/22 Range/Units 06:56 11:17 WBC (4.0-10.5) x10^3/uL RBC (4.1-5.6) x10^6/uL Hgb (12.5-18.0) g/dL Hct (42-50) % MCV (78-100) fL MCH (26-32) pg MCHC (32-36) g/dL RDW (11.5-14.0) % Plt Count (150-450) x10^3/uL MPV (7.5-11.0) fL Gran % (36.0-66.0) % Immature Gran % (Auto) (0.00-0.4) % Nucleat RBC Rel Count (0.00-0.1) % Eos # (Auto) (0-0.5) x10^3/uL Immature Gran # (Auto) (0.00-0.03) x10^3u/L Absolute Lymphs (auto) (1.0-4.6) x10^3/uL Absolute Monos (auto) (0.0-1.3) x10^3/uL Absolute Nucleated RBC (0.00-0.01) x10^3u/L Lymphocytes % (24.0-44.0) % Monocytes % (0.0-12.0) % Eosinophils % (0.00-5.0) % Basophils % (0.0-0.4) % Absolute Granulocytes (1.4-6.9) x10^3/uL Basophils # (0-0.4) x10^3/uL ESR (0-15) mm/hr Glucose (74-106) mg/dL POC Glucometer 83 291 H (74 to 106) mg/dL Radiology Exams: Radiology Procedures Category Date Time Status FOOT (MINIMUM 3 VIEWS) Routine Exams 08/05/22 14:05 Ordered FOOT (MINIMUM 3 VIEWS) Stat Exams 08/04/22 10:55 Completed Multi-Disciplinary Progress Notes: Multi-Disciplinary Progress Notes 08/05/22 11:18 Occupational Therapy Note by Walt(L#[id number])Rasheeda Occupational Therapy Evaluation completed this date. Evaluate only this date. OTR has coordinated with patient, RN, and PT regarding patient status. Patient is independent with self-care tasks within current limitations and is knowledgeable of compensations for task performance. OTR recommends BSC for home to maximize adherence to RLE WB status as much as possible and has discussed with PT. OT will continue to monitor patient's status through duration of stay should patient status change or need for OT arise. Will defer to PT for transfer and mobility training at this time. Initialized on 08/05/22 11:18 - END OF NOTE 08/05/22 11:18 OT Plan of Care Note by Walt(Rad#[id number])Rasheeda OT Eval OT Eval and Treat MD Order Start: 08/04/22 10:55 Freq: ONCE Status: Active Protocol: Created 08/04/22 11:03 ILAN (Rec: 08/04/22 11:03 ILAN -[id number]) Document 08/05/22 10:35 MJ (Rec: 08/05/22 10:49 MJ [id number]) OT Assessment Pertinent Past Medical History Patient is an 86 y/o pleasant, talkative man who was admitted d/t osteomyelitis of R foot s/p surgical intervention on 08/04/[address] Tamayo and referred for OT evaluation by same MD. Mr. Porter reports that his daughter called his MD to notify him of increased redness, swelling, and pain to R foot x2 days and he was admitted. 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 Patient states that he will be able to perform sponge bath with setup. Dressing Impaired Comment Patient is able to complete UB dressing and req's MOD-MAX A for LB dressing for stand transfer Toileting Impaired Comment Patient has difficulty with transfer to commode and standing to perform LB clothing management IADLS (If indicated) Homemaking,etc Impaired Comment d/t functional mobilty impairments and NWB status of RLE at this time Toilet Transfers Impaired Comment See above Functional Transfers Impaired Comment See above Cognition Mr. Yan is alert and oriented x3 this date. Other Objective Data Neema Index of ADLs: 50/100, indicative of partial dependence for I/ADL performance Adaptive Equipment/Durable Medical BSC, grab bars Equipment needed/recommended Pain Limitations Mr. Yan reports 5/10 RLE pain at rest in elevation this date. Per nursing and patient, he had received pain medication approximately 1 hour prior to OT evaluation. Therapuetic Interventions Evaluation Functional Goals of Treatment 1. Evaluate only this date. OT Inpatient Plan of Care Date of Evaluation 08/05/22 Treatment Diagnosis Muscle Weakness, Need for Assistance with Self-Care Precaution/Orders as written Eval & Treat Patient assessed for Rehab Services Yes Was notification received of nursing Yes assessment trigger Chart screen completed Yes Are referral orders warranted for Yes evaluation Is an intervention justified at this Yes time Comment Evaluate only this date. OTR has coordinated with patient, RN, and PT regarding patient status. Patient is independent with self-care tasks within current limitations and is knowledgeable of compensations for task performance. OTR recommends BSC for home to maximize adherence to RLE WB status as much as possible and has discussed with PT. OT will continue to monitor patient's status through duration of stay should patient status change or need for OT arise. 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 No residual gas. Dressing changes demonstrating improvement in cellulitis toe the right foot. No residual infection noted. Packing pulled and replaced at this time. Plan for repeat wash out, partial 5th metatarsal resection for clean margins, abuctor digiti minimi muscle flap and delayed primary closure in coming days based on clinical signs of improvement Will likely proceed with outpatient IV abx. Awaiting C&S for narrowing antibiotic regimen. Discussed potential stay in swing bed. Will discuss with case management. Pain control as prescribed Will follow up daily. Decision for return to OR will be made tomorrow. (2) Diabetic foot ulcer Current Visit: Yes Status: Acute Code(s): E11.621 - TYPE 2 DIABETES MELLITUS WITH FOOT ULCER; L97.509 - NON-PRESSURE CHRONIC ULCER OTH PRT UNSP FOOT W UNSP SEVERITY (3) Cellulitis of right foot Current Visit: Yes Status: Acute Code(s): L03.115 - CELLULITIS OF RIGHT LOWER LIMB
--- NOTE | 2022-08-05 14:48 | XRAY ---
Indication: Postop exam. Comparison: August 04, 2022 3 nonweightbearing views right foot demonstrates interval amputation mid to distal 5th metatarsal with remnant 3 mm and 6 mm round ossifications. Overlying postsurgical soft tissue swelling/bandage material. Stable osteopenia, pes planus, tiny plantar heel spur, and extensive scattered vascular calcifications.
[2022-08-05] MEDS: Prozac 20 MG PO SCH (17:13)
[2022-08-05] MEDS: Proscar 5 MG PO SCH (17:13)
[2022-08-05] MEDS: Flomax 0.4 MG PO SCH (17:13)
[2022-08-05] MEDS: SODIUM BICARBONATE PO SCH (17:14)
[2022-08-06 04:59] LABS: BASOPHIL % 0.6 % (0.0-0.4); Basophil (Absolute #) 0.05 x10^3/uL (0-0.4); Eosinophil % 1.6 % (0.00-5.0); Eosinophil (Absolute #) 0.14 x10^3/uL (0-0.5); Hematocrit 30.3 % (42-50); Hemoglobin 9.4 g/dL (12.5-18.0); IMMATURE GRAN # 0.03 x10^3u/L (0.00-0.03); IMMATURE GRAN % 0.4 % (0.00-0.4); Lymphocyte (Absolute #) 0.75 x10^3/uL (1.0-4.6); Lymphocytes % 8.8 % (24.0-44.0); Mean Cell Volume 99.7 fL (78-100); Mean Corpuscular Hemoglobin 30.9 pg (26-32); Mean Platelet Volume 10.4 fL (7.5-11.0); Monocyte (Absolute #) 0.52 x10^3/uL (0.0-1.3); Monocytes % 6.1 % (0.0-12.0); Neutrophil % 82.5 % (36.0-66.0); Platelet Count 224 x10^3/uL (150-450); Red Blood Count 3.04 x10^6/uL (4.1-5.6); Red Cell Distribution Width 12.3 % (11.5-14.0); White Blood Count 8.5 x10^3/uL (4.0-10.5)
[2022-08-06 05:33] LABS: ALBUMIN 3.1 g/dL (3.5-5.0); ANION GAP 9.7 MEQ/L (5-15); BILIRUBIN,TOTAL 0.3 mg/dL (0.2-1.3); Calcium 7.9 mg/dL (8.4-10.2); Creatinine 1 3.02 mg/dL (0.66-1.25); EST GLOMERULAR FILTRATION RATE 21.1 ML/MIN; Potassium 4.3 mmol/L (3.5-5.1); Total Protein 5.9 g/dL (6.3-8.2)
[2022-08-06] MEDS: Piperacillin/Tazobactam 2.25 GM 2.25 GM in Sodium Chloride 100ML MINI-BAG PLUS 100 ML IV SCH ×3 (06:11→21:58)
[2022-08-06 07:58] LABS: INR 2.93 (0.8-3.0); PROTIME 28.2 SECONDS (9.4-12.5)
[2022-08-06] MEDS: VANCOCIN 500 MG VIAL*** 500 MG in Sodium Chloride 100ML MINI-BAG PLUS 100 ML IV SCH (09:50)
[2022-08-06] MEDS: Ecotrin 325 MG PO SCH (09:51)
[2022-08-06] MEDS ORDERED: NON-FORMULARY ITEM (Warfarin Sodium [Warfarin Sodium] 2 MG Tablet) PO SCH (10:00)
--- NOTE | 2022-08-06 15:05 | PCM.NOTE ---
Date and Time: 08/06/22 1459 Subjective Assessment: POD #2 Patient at bedside with nurse, REFERENCE DATA [employer] and Grand-daughter. Minimal complaints. Denies constitutional symptoms of infection Physical Exam - General General Appearance: no apparent distress - Neuro Neurologic: Epicritic and protopathic - Vascular Peripheral Pulses: Posterior tibialis: 1+, Dorsalis-Pedis: 1+ Hair Growth: Symmetrical and Bilateral Varicosities: Negtive Edema: None - Narrative Narrative Physical Exam: Podiatry Physical Exam OBJECTIVE DATA Vital Signs: Vital Signs - 24 hr Temp Pulse Resp BP Pulse Ox 08/06/22 11:46 97.1 F 78 16 151/65 95 08/06/22 08:00 16 08/06/22 06:33 97.7 F 95 H 16 115/59 92 L 08/06/22 04:00 17 08/06/22 03:58 97.5 F 89 17 133/67 94 L 08/06/22 00:00 98.2 F 84 18 143/65 95 08/05/22 20:00 19 08/05/22 19:50 96.9 F 92 H 19 128/64 91 L 08/05/22 16:00 97.7 F 65 16 147/67 97 Pain Assessment - Last Documented Pain Intensity 0 Pain Scale Used 0-10 Pain Scale Intake and Output: Intake & Output 08/04/22 08/05/22 08/06/22 08/07/22 11:59 11:59 11:59 11:59 Intake Total 1756 1200 240 Output Total 1 Balance 1756 1199 240 Weight 71.1 kg 71.1 kg 71.1 kg Lab Results: Lab Results-Last 24 Hours 08/04/22 08/05/22 08/06/22 Range/Units 11:00 16:40 04:21 WBC 8.5 (4.0-10.5) x10^3/uL RBC 3.04 L (4.1-5.6) x10^6/uL Hgb 9.4 L (12.5-18.0) g/dL Hct 30.3 L (42-50) % MCV 99.7 (78-100) fL MCH 30.9 (26-32) pg MCHC 31.0 L (32-36) g/dL RDW 12.3 (11.5-14.0) % Plt Count 224 (150-450) x10^3/uL MPV 10.4 (7.5-11.0) fL Gran % 82.5 H (36.0-66.0) % Immature Gran % (Auto) 0.4 (0.00-0.4) % Nucleat RBC Rel Count 0.0 (0.00-0.1) % Eos # (Auto) 0.14 (0-0.5) x10^3/uL Immature Gran # (Auto) 0.03 (0.00-0.03) x10^3u/L Absolute Lymphs (auto) 0.75 L (1.0-4.6) x10^3/uL Absolute Monos (auto) 0.52 (0.0-1.3) x10^3/uL Absolute Nucleated RBC 0.00 (0.00-0.01) x10^3u/L Lymphocytes % 8.8 L (24.0-44.0) % Monocytes % 6.1 (0.0-12.0) % Eosinophils % 1.6 (0.00-5.0) % Basophils % 0.6 (0.0-0.4) % Absolute Granulocytes 7.00 H (1.4-6.9) x10^3/uL Basophils # 0.05 (0-0.4) x10^3/uL PT (9.4-12.5) SECONDS INR (0.8-3.0) Sodium (137-145) mmol/L Potassium (3.5-5.1) mmol/L Chloride (98-107) mmol/L Carbon Dioxide (22-30) mmol/L Anion Gap (5-15) MEQ/L BUN (9-20) mg/dL Creatinine (0.66-1.25) mg/dL Estimated GFR ML/MIN Glucose (74-106) mg/dL POC Glucometer 153 H (74 to 106) mg/dL Calcium (8.4-10.2) mg/dL Total Bilirubin (0.2-1.3) mg/dL AST (17-59) U/L ALT (0-50) U/L Alkaline Phosphatase (38-126) U/L C-Reactive Prot, Quant 19 H (0-10) mg/L Serum Total Protein (6.3-8.2) g/dL Albumin (3.5-5.0) g/dL 08/06/22 08/06/22 08/06/22 Range/Units 04:21 07:03 07:38 WBC (4.0-10.5) x10^3/uL RBC (4.1-5.6) x10^6/uL Hgb (12.5-18.0) g/dL Hct (42-50) % MCV (78-100) fL MCH (26-32) pg MCHC (32-36) g/dL RDW (11.5-14.0) % Plt Count (150-450) x10^3/uL MPV (7.5-11.0) fL Gran % (36.0-66.0) % Immature Gran % (Auto) (0.00-0.4) % Nucleat RBC Rel Count (0.00-0.1) % Eos # (Auto) (0-0.5) x10^3/uL Immature Gran # (Auto) (0.00-0.03) x10^3u/L Absolute Lymphs (auto) (1.0-4.6) x10^3/uL Absolute Monos (auto) (0.0-1.3) x10^3/uL Absolute Nucleated RBC (0.00-0.01) x10^3u/L Lymphocytes % (24.0-44.0) % Monocytes % (0.0-12.0) % Eosinophils % (0.00-5.0) % Basophils % (0.0-0.4) % Absolute Granulocytes (1.4-6.9) x10^3/uL Basophils # (0-0.4) x10^3/uL PT (9.4-12.5) SECONDS INR (0.8-3.0) Sodium 140 (137-145) mmol/L Potassium 4.3 (3.5-5.1) mmol/L Chloride 111 H (98-107) mmol/L Carbon Dioxide 23 (22-30) mmol/L Anion Gap 9.7 (5-15) MEQ/L BUN 31 H (9-20) mg/dL Creatinine 3.02 H (0.66-1.25) mg/dL Estimated GFR 21.1 ML/MIN Glucose 69 L (74-106) mg/dL POC Glucometer 59 L 108 H (74 to 106) mg/dL Calcium 7.9 L (8.4-10.2) mg/dL Total Bilirubin 0.30 (0.2-1.3) mg/dL AST 23 (17-59) U/L ALT 13 (0-50) U/L Alkaline Phosphatase 79 (38-126) U/L C-Reactive Prot, Quant (0-10) mg/L Serum Total Protein 5.9 L (6.3-8.2) g/dL Albumin 3.1 L (3.5-5.0) g/dL 08/06/22 08/06/22 Range/Units 07:40 11:18 WBC (4.0-10.5) x10^3/uL RBC (4.1-5.6) x10^6/uL Hgb (12.5-18.0) g/dL Hct (42-50) % MCV (78-100) fL MCH (26-32) pg MCHC (32-36) g/dL RDW (11.5-14.0) % Plt Count (150-450) x10^3/uL MPV (7.5-11.0) fL Gran % (36.0-66.0) % Immature Gran % (Auto) (0.00-0.4) % Nucleat RBC Rel Count (0.00-0.1) % Eos # (Auto) (0-0.5) x10^3/uL Immature Gran # (Auto) (0.00-0.03) x10^3u/L Absolute Lymphs (auto) (1.0-4.6) x10^3/uL Absolute Monos (auto) (0.0-1.3) x10^3/uL Absolute Nucleated RBC (0.00-0.01) x10^3u/L Lymphocytes % (24.0-44.0) % Monocytes % (0.0-12.0) % Eosinophils % (0.00-5.0) % Basophils % (0.0-0.4) % Absolute Granulocytes (1.4-6.9) x10^3/uL Basophils # (0-0.4) x10^3/uL PT 28.2 H (9.4-12.5) SECONDS INR 2.93 (0.8-3.0) Sodium (137-145) mmol/L Potassium (3.5-5.1) mmol/L Chloride (98-107) mmol/L Carbon Dioxide (22-30) mmol/L Anion Gap (5-15) MEQ/L BUN (9-20) mg/dL Creatinine (0.66-1.25) mg/dL Estimated GFR ML/MIN Glucose (74-106) mg/dL POC Glucometer 221 H (74 to 106) mg/dL Calcium (8.4-10.2) mg/dL Total Bilirubin (0.2-1.3) mg/dL AST (17-59) U/L ALT (0-50) U/L Alkaline Phosphatase (38-126) U/L C-Reactive Prot, Quant (0-10) mg/L Serum Total Protein (6.3-8.2) g/dL Albumin (3.5-5.0) g/dL Radiology Exams: Radiology Procedures Category Date Time Status FOOT (MINIMUM 3 VIEWS) Routine Exams 08/05/22 14:05 Completed Multi-Disciplinary Progress Notes: Multi-Disciplinary Progress Notes 08/06/22 12:32 Case Management Note by Whitney Florence NO CHANGE IN DC PLANS- HE CONTINUES TO WANT TO DO SWINGBED WHEN READY Initialized on 08/06/22 12:32 - END OF NOTE Assessment/Plan (1) Chronic osteomyelitis involving ankle and foot Current Visit: Yes Status: Acute Assessment & Plan: Patient examination and evaluation Radiographs reviewed demonstrating 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 No residual gas. Dressing changes demonstrating improvement in cellulitis toe the right foot. No residual infection noted. Packing pulled at this time. Plan for repeat wash out, partial 5th metatarsal resection for clean margins, abuctor digiti minimi muscle flap and delayed primary closure in coming days based on clinical signs of improvement Will likely proceed with outpatient IV abx. Continue waiting C&S for narrowing antibiotic regimen. Pain control as prescribed Will follow up daily. Proceed to surgery tomorrow. Swing bed approved. (2) Diabetic foot ulcer Current Visit: Yes Status: Acute Code(s): E11.621 - TYPE 2 DIABETES MELLITUS WITH FOOT ULCER; L97.509 - NON-PRESSURE CHRONIC ULCER OTH PRT UNSP FOOT W UNSP SEVERITY (3) Cellulitis of right foot Current Visit: Yes Status: Acute Code(s): L03.115 - CELLULITIS OF RIGHT LOWER LIMB
[2022-08-06] MEDS: NORCO 5/325 MG PO PRN ×2 (15:41→21:57)
[2022-08-06] MEDS ORDERED: Flomax 0.4 MG PO SCH (17:00)
[2022-08-06] MEDS: SODIUM BICARBONATE PO SCH (17:29)
[2022-08-06] MEDS: Prozac 20 MG PO SCH (17:29)
[2022-08-06] MEDS: Proscar 5 MG PO SCH (17:30)
[2022-08-06] MEDS: Glucophage 500 MG PO SCH ×3 (17:38→18:57)
[2022-08-06] MEDS ORDERED: Glucophage 500 MG PO SCH (18:00)
[2022-08-06] MEDS ORDERED: Coumadin 3 MG PO SCH (18:00)
[2022-08-07 05:15] LABS: Absolute Neutrophil Ct (ANC) 5.11 x10^3/uL (1.4-6.9); BASOPHIL % 0.9 % (0.0-0.4); Basophil (Absolute #) 0.06 x10^3/uL (0-0.4); Eosinophil % 3.6 % (0.00-5.0); Eosinophil (Absolute #) 0.25 x10^3/uL (0-0.5); Hemoglobin 9.4 g/dL (12.5-18.0); IMMATURE GRAN # 0.02 x10^3u/L (0.00-0.03); IMMATURE GRAN % 0.3 % (0.00-0.4); Lymphocyte (Absolute #) 1.03 x10^3/uL (1.0-4.6); Lymphocytes % 14.8 % (24.0-44.0); Mean Cell Volume 99.3 fL (78-100); Mean Corpuscular Hemoglobin 31.1 pg (26-32); Mean Corpuscular Hgb Concent. 31.3 g/dL (32-36); Mean Platelet Volume 10.5 fL (7.5-11.0); Monocyte (Absolute #) 0.51 x10^3/uL (0.0-1.3); Monocytes % 7.3 % (0.0-12.0); Neutrophil % 73.1 % (36.0-66.0); Platelet Count 238 x10^3/uL (150-450); Red Blood Count 3.02 x10^6/uL (4.1-5.6); Red Cell Distribution Width 12.5 % (11.5-14.0)
[2022-08-07 05:38] LABS: ANION GAP 7.9 MEQ/L (5-15); BILIRUBIN,TOTAL 0.4 mg/dL (0.2-1.3); Calcium 7.8 mg/dL (8.4-10.2); Creatinine 1 2.91 mg/dL (0.66-1.25); Potassium 4.3 mmol/L (3.5-5.1); Total Protein 5.8 g/dL (6.3-8.2)
[2022-08-07 05:41] LABS: INR 2.69 (0.8-3.0); PROTIME 26.1 SECONDS (9.4-12.5)
[2022-08-07] MEDS: Piperacillin/Tazobactam 2.25 GM 2.25 GM in Sodium Chloride 100ML MINI-BAG PLUS 100 ML IV SCH (06:30)
[2022-08-07] MEDS: Lactated Ringers 1,000 ML IV SCH (07:42)
[2022-08-07] MEDS: Ecotrin 325 MG PO SCH (08:58)
[2022-08-07] MEDS ORDERED: Xylocaine 1% Vial 30 ML PF IJ ONE (09:19)
[2022-08-07] MEDS ORDERED: Marcaine Mpf 0.5% Vial 30 Ml ONE (09:19)
[2022-08-07] MEDS ORDERED: TROUGH DRUG LEVELS IJ ONE (09:30)
[2022-08-07] MEDS ORDERED: Sodium Chloride 0.9% 1000 ML 1,000 ML ONE (09:51)
[2022-08-07 11:09] VITALS: BP 139/80; PULSE 98; O2SAT 92
[2022-08-07] MEDS ORDERED: NORCO 5/325 MG PO PRN (11:35)
--- NOTE | 2022-08-07 12:20 | OP ---
SURGERY DATE/TIME: 08/07/2022 0936 PREOPERATIVE DIAGNOSES: 1) Diabetic foot wound right foot. 2) Right foot pain. 3) Cellulitis right foot. 4) Osteomyelitis right foot. 5) Gas gangrene right foot. 6) Peripheral neuropathy right foot. POSTOPERATIVE DIAGNOSES: 1) Diabetic foot wound right foot. 2) Right foot pain. 3) Cellulitis right foot. 4) Osteomyelitis right foot. 5) Gas gangrene right foot. 6) Peripheral neuropathy right foot. PROCEDURES: 1) Incision and drainage to level of bone right foot. 2) Partial excision of fifth metatarsal bone for clean margins. 3) Abductor digiti minimi muscle flap. 4) Complex closure of surgical wound. SURGEON: Roni Davison DPM. SLIP CASTER: None. ANESTHESIA: Local. See injectables for details. ESTIMATED BLOOD LOSS: Less than 10 cc. MATERIALS: 2-0 Nylon, 3-0 Nylon, 4-0 Monocryl, 2-0 Monocryl, suture guard. INJECTABLES: 30 cc of a 1:1 mixture of 1% lidocaine plain and 0.5% bupivacaine plain injected in mini Correa block to the lateral aspect of the foot. INDICATION FOR SURGERY: Uvaldo is a very pleasant 86-year-old male well known to my service who earlier this week underwent a partial excision of his fifth metatarsal. The patient did have some signs of gas demonstrating on the x-ray as well as significant increase in swelling, pain and local signs of infection. At this time decision was made due to chronic nature of ulceration to proceed with addressing this issue. The patient had the first stage of his procedure on Wednesday this week and had shown significant signs of improvement over the last several days. At this time decision was made to proceed with closure of the wound. The patient understands all risks, complications and benefits of surgical intervention at this time including but not limited to infection, hematoma, seroma, possibility of delayed skin healing, nonskin healing, possibility of residual osteomyelitis and need for surgical intervention at a later date. No guarantees can be provided in these situations. It is with that we decided to proceed. DESCRIPTION OF PROCEDURE AND FINDINGS: The patient is brought into the OR and placed on the OR table in the supine position. At this time under aseptic technique a mini Correa block was performed utilizing 30 cc of a 1:1 mixture of 1% lidocaine plain and 0.5% bupivacaine plain at the right foot. At this time the right foot was prepped and draped in the typical sterile fashion and lowered onto the surgical field. At this time a 10 blade along with pickups were utilized to remove the stitches at the proximal aspect of the surgical site. At this time the incision was deepened and any nonviable necrotic tissue was removed from the surgical site. At this time a 15 blade was utilized to incise the edge and a healthy bleeding edge was identified for the majority of the site. At this time any site that did not show active bleeding resected until bleeding was identified. The abductor digiti minimi muscle belly was then harvested from the plantar aspect of the wound and freed for transfer. At this time copious amounts of sterile saline were utilized to flush the surgical sites. The abductor digiti minimi muscle was then transposed from a plantar lateral to dorsal medial orientation and sewn onto the periosteum utilizing 2-0 Vicryl. 4-0 Monocryl was then utilized to coapt the subcutaneous edges of the skin and 3-0 Nylon then was utilized to coapt the skin edges in a simple interrupted-type fashion. A suture guard was then utilized to take the tension off of the edges of the surgical wound. Following this, the leg was cleansed with sterile saline and dried. A dressing consisting of Betadine, Adaptic, 4x4, Kerlix and JACKIE were then applied to the patient's right foot with minimal compression. The patient was returned to the preoperative area with vital signs stable and vascular status intact. The patient handled the anesthesia as well as the procedure without complications. Postoperative orders as indicated in the patient's discharge chart.
[2022-08-07] MEDS ORDERED: VANCOMYCIN 1.25 GM/250 ML BAG 1.25 GM/250 ML PIGGYBACK IV SCH (13:00)
[2022-08-10] MEDS ORDERED: TROUGH DRUG LEVELS IJ ONE (09:30)
[2022-08-28] MEDS ORDERED: Cyanocobalamin B-12 1000 MCG/ML IJ SCH (10:00)
== END 2022-08-07 14:00 | disposition swing bed (61) | DRG 501 ==
LOC: MED SURG 10:44 → OBSVTOIN 10:44
PROVIDERS: ADMIT Family Medicine; ATTEND Family Medicine
PROC: 0Q9N0ZZ Drainage of Right Metatarsal, Open Approach (ICD-10-PCS; principal; 2022-08-04)
PROC: 0JRN07Z Replacement of Right Lower Leg Subcutaneous Tissue and Fascia with Autologous Tissue Substitute, Open Approach (ICD-10-PCS; 2022-08-04)
PROC: 0QBN0ZZ Excision of Right Metatarsal, Open Approach (ICD-10-PCS; 2022-08-07)
PROC: 0KQV0ZZ Repair Right Foot Muscle, Open Approach (ICD-10-PCS; 2022-08-07)
PROC: 0Q9N0ZZ Drainage of Right Metatarsal, Open Approach (ICD-10-PCS; 2022-08-07)
PROC: 0JRN07Z Replacement of Right Lower Leg Subcutaneous Tissue and Fascia with Autologous Tissue Substitute, Open Approach (ICD-10-PCS; 2022-08-07)
DX: M86.171 Other acute osteomyelitis, right ankle and foot (principal); E11.52 Type 2 diabetes mellitus with diabetic peripheral angiopathy with gangrene; L03.115 Cellulitis of right lower limb; E11.621 Type 2 diabetes mellitus with foot ulcer; E11.42 Type 2 diabetes mellitus with diabetic polyneuropathy; E11.22 Type 2 diabetes mellitus with diabetic chronic kidney disease; I13.10 Hypertensive heart and chronic kidney disease without heart failure, with stage 1 through stage 4 chronic kidney disease, or unspecified chronic kidney disease; N18.9 Chronic kidney disease, unspecified; I13.0 Hypertensive heart and chronic kidney disease with heart failure and stage 1 through stage 4 chronic kidney disease, or unspecified chronic kidney disease; I50.9 Heart failure, unspecified; Z20.828 Contact with and (suspected) exposure to other viral communicable diseases
CPT/HCPCS: 0241U; 13160; 15738; 28005; 28122; 36415; 73630; 80053; 80202; 82947; 83036; 83605; 85025; 85610; 85652; 86140; 87070; 87075; 97110; 97161; 97165; 99024; 99214; A6260; J2001; J2543; J3370; A9270-GY

== ENCOUNTER 2022-08-07 11:39 | Inpatient (IN) | payer MEDICARE, OTHER ==
[2022-08-07] MEDS ORDERED: MEDICATION INTERVENTION MC SCH (14:47)
[2022-08-07] MEDS ORDERED: Hydromorphone 1 mg/ml Injection IV PRN (14:47)
[2022-08-07] MEDS ORDERED: Glucotrol Xl 2.5 MG PO PRN (14:47)
[2022-08-07] MEDS ORDERED: Aplisol ID ONE (14:47)
[2022-08-07] MEDS: Flomax 0.4 MG PO SCH (16:05)
[2022-08-07] MEDS: Prozac 20 MG PO SCH (16:06)
[2022-08-07] MEDS: Glucophage 500 MG PO SCH (16:06)
[2022-08-07] MEDS: Proscar 5 MG PO SCH (16:07)
[2022-08-07] MEDS: SODIUM BICARBONATE PO SCH (16:08)
[2022-08-07] MEDS ORDERED: Coumadin 3 MG PO SCH (18:00)
[2022-08-07] MEDS: MOTRIN 600 MG PO PRN (18:25)
[2022-08-07] MEDS: Piperacillin/Tazobactam 2.25 GM 2.25 GM in Sodium Chloride 100ML MINI-BAG PLUS 100 ML IV SCH (21:55)
[2022-08-07] MEDS: Lactated Ringers 1,000 ML IV SCH (21:56)
[2022-08-08] MEDS: Piperacillin/Tazobactam 2.25 GM 2.25 GM in Sodium Chloride 100ML MINI-BAG PLUS 100 ML IV SCH ×3 (06:10→20:55)
[2022-08-08 06:50] LABS: Creatinine 1 2.82 mg/dL (0.66-1.25); EST GLOMERULAR FILTRATION RATE 22.8 ML/MIN
[2022-08-08] MEDS: VANCOMYCIN 1.25 GM/250 ML BAG 1.25 GM/250 ML PIGGYBACK IV SCH (09:58)
[2022-08-08] MEDS: Ecotrin 325 MG PO SCH (10:00)
[2022-08-08] MEDS ORDERED: Aplisol ID SCH (10:00)
[2022-08-08] MEDS: MOTRIN 600 MG PO PRN (14:20)
[2022-08-08 16:24] LABS: INR 4.49 (0.8-3.0); PROTIME 41.5 SECONDS (9.4-12.5)
[2022-08-08] MEDS: Lactated Ringers 1,000 ML IV SCH (17:58)
[2022-08-08] MEDS: Glucophage 500 MG PO SCH (18:00)
[2022-08-08] MEDS: Flomax 0.4 MG PO SCH (18:00)
[2022-08-08] MEDS: Proscar 5 MG PO SCH (18:01)
[2022-08-08] MEDS: Prozac 20 MG PO SCH (18:01)
[2022-08-08] MEDS: SODIUM BICARBONATE PO SCH (18:02)
[2022-08-09] MEDS: MOTRIN 600 MG PO PRN (03:06)
[2022-08-09] MEDS: Piperacillin/Tazobactam 2.25 GM 2.25 GM in Sodium Chloride 100ML MINI-BAG PLUS 100 ML IV SCH ×3 (05:38→21:17)
[2022-08-09] MEDS: NORCO 5/325 MG PO PRN ×2 (05:50→21:17)
[2022-08-09 06:36] LABS: INR 3.65 (0.8-3.0); PROTIME 34.4 SECONDS (9.4-12.5)
[2022-08-09 06:44] LABS: Creatinine 1 3.28 mg/dL (0.66-1.25); EST GLOMERULAR FILTRATION RATE 19.2 ML/MIN
[2022-08-09] MEDS: Ecotrin 325 MG PO SCH (08:22)
[2022-08-09] MEDS: VANCOMYCIN 1.25 GM/250 ML BAG 1.25 GM/250 ML PIGGYBACK IV SCH (08:23)
[2022-08-09] MEDS: Lactated Ringers 1,000 ML IV SCH ×2 (14:35→21:22)
[2022-08-09] MEDS: SODIUM BICARBONATE PO SCH (18:32)
[2022-08-09] MEDS: Glucophage 500 MG PO SCH (18:32)
[2022-08-09] MEDS: Flomax 0.4 MG PO SCH (18:32)
[2022-08-09] MEDS: Proscar 5 MG PO SCH (18:32)
[2022-08-09] MEDS: Prozac 20 MG PO SCH (18:32)
[2022-08-10] MEDS: MOTRIN 600 MG PO PRN (00:07)
[2022-08-10] MEDS: Piperacillin/Tazobactam 2.25 GM 2.25 GM in Sodium Chloride 100ML MINI-BAG PLUS 100 ML IV SCH ×3 (05:13→22:28)
[2022-08-10 06:03] LABS: INR 3.24 (0.8-3.0); PROTIME 30.9 SECONDS (9.4-12.5)
[2022-08-10 06:16] LABS: Creatinine 1 3.3 mg/dL (0.66-1.25)
[2022-08-10] MEDS: VANCOMYCIN 1.25 GM/250 ML BAG 1.25 GM/250 ML PIGGYBACK IV SCH (09:18)
[2022-08-10] MEDS: Ecotrin 325 MG PO SCH (09:18)
[2022-08-10] MEDS: Flomax 0.4 MG PO SCH (18:20)
[2022-08-10] MEDS: Proscar 5 MG PO SCH (18:21)
[2022-08-10] MEDS: Prozac 20 MG PO SCH (18:21)
[2022-08-10] MEDS: SODIUM BICARBONATE PO SCH (18:22)
[2022-08-10] MEDS: Glucophage 500 MG PO SCH (18:29)
[2022-08-10] MEDS: Lactated Ringers 1,000 ML IV SCH (22:28)
[2022-08-11 05:33] LABS: INR 2.08 (0.8-3.0); PROTIME 20.6 SECONDS (9.4-12.5)
[2022-08-11] MEDS: Piperacillin/Tazobactam 2.25 GM 2.25 GM in Sodium Chloride 100ML MINI-BAG PLUS 100 ML IV SCH ×3 (06:03→21:26)
[2022-08-11] MEDS ORDERED: PHARMACY DOSING REQUEST MC ONE (08:00)
--- NOTE | 2022-08-11 08:04 | PCM.NOTE ---
Date and Time: 08/11/22 0800 Subjective Assessment: POD #3 since muscle flap, clean margins and delayed primary closure. Patient progressing without complication. No other complaints improving pain Physical Exam - Narrative Narrative Physical Exam: Podiatry Physical Exam OBJECTIVE DATA Vital Signs: Vital Signs - 24 hr Temp Pulse Resp BP Pulse Ox 08/11/22 07:44 98.1 F 91 H 16 133/66 92 L 08/10/22 19:49 97.1 F 94 H 16 127/70 90 L Pain Assessment - Last Documented Pain Intensity 0 Pain Scale Used 0-10 Pain Scale Intake and Output: Intake & Output 08/08/22 08/09/22 08/10/22 08/11/22 11:59 11:59 11:59 11:59 Intake Total 1103 1850 1851 1965 Balance 1103 1850 1851 1965 Weight 71.1 kg 75 kg 75.1 kg 76 kg Lab Results: Lab Results-Last 24 Hours 08/10/22 08/10/22 08/11/22 Range/Units 08:56 13:31 04:43 PT 20.6 H (9.4-12.5) SECONDS INR 2.08 D (0.8-3.0) POC Glucometer 155 H (74 to 106) mg/dL Vancomycin Trough (10-20) ug/mL Multi-Disciplinary Progress Notes: Multi-Disciplinary Progress Notes 08/10/22 11:47 PT IP Plan of Care Note by Bakari (L#[id number]),Alejandra Physical Therapy Plan of Care PT Inpatient Plan of Care Start: 08/10/22 11:22 Freq: DAILY Status: Active Protocol: Document 08/10/22 11:22 ED (Rec: 08/10/22 11:47 ED [id number]) E-Sign 08/10/22 11:22 ED PT Inpatient Plan of Care Functional Problem List: 1. R FOOT PAIN 2. DIFFICULTY WALKING 3. DIFFICULTY WITH TRANSFERS 4. MM WEAKNESS Functional Goals of Treatment PATIENT IS NWB ON THE R FOOT FOLLOWING DEBRIDEMENT D/T OM. NEW GOALS ARE: 1. PATIENT WILL BE ABLE TO PERFORM SIT TO STAND TRANSFERS WITH RW WITH SBA OF 1. 2. PATIENT WILL DEMO STANDING BALANCE FAIR + WITH RW. 3. PATIENT WILL DEMO LE STRENGTH GROSSLY 4-/5. Interventions THERAPEUTIC EXERCISES FOR LE STRENGTHENING, BALANCE, TRANSFER TRAINING, AMBULATION NWB R LE. Precautions FALL PRECAUTIONS INFECTION PRECAUTIONS Past Medical History PMH: CATARACTS, TYPE II DM, PNEUMONIA, CAD, DVT, HERNIA, RENAL DZ, PROSTATE, LEG CRAMPS , ENLARGED PROSTATE, BLOOD CLOT L LEG AND LUNG, KIDNEY STONES, FACIAL FX, R SHOULDER INJURY CABG X4. PSHX:CATARACTS, CABG, PACEMAKER, SKIN CA. Who was educated Patient Comment PT EDUCATED ON LEG EXERCISES IN SITTING. IMPORTANCE ON MAINTAINING R NWB IN STANDING AND AMBULATION STRESSED. PATIENT REMINDED TO HAVE ASSIST WITH STAND PIVOT TRANSFERS. Other Objective Data: PATIENT IS ABLE TO PERFORM SIT TO STAND AND PIVOT TRANSFERS WITH RW AND ASSIST OF 1. NEEDS VCS TO MAINTAIN NWB R LE. Discharge Plan PLAN IS TO D/C ONCE IV ARE FINSHED AND PATIENT IS ABLE TO DEMONSTRATE SAFE TRANSFERS. Patient is Aware of Diagnosis and Yes Prognosis Patient is receptive to Plan of Care Yes Rehabilitation Potential Good Initialized on 08/10/22 11:47 - END OF NOTE 08/10/22 11:31 Case Management Note by Whitney Florence PATIENT GETTING IV ANTIBIOTICS. CULTURE ON RIGHT FOOT STILL PENDING. PATIENT PLANS TO STAY IN SWINGBED AND RECEIVE IV ANTIBIOTICS WHILE WORKING WITH PT ON TRANSFERS AND SUCH AND REMAINING NWB. HE THEN PLANS TO RETURN HOME WITH HIS SON TO CARE FOR HIM AND COME BACK FOR OTPT ANTIBIOTICS Initialized on 08/10/22 11:31 - END OF NOTE Assessment/Plan (1) Osteomyelitis Current Visit: No Status: Acute Assessment & Plan: Patient examination and evaluation Dressing changed revealing improving appearence overall quinn incision. some mild maceration of wound distally. Continue weight bearing protocol for now Continue ABX protocol for now. Awaiting send out culture and sensitivity. Bone pathology awaiting, awaiting clean margins. Continue Dvt prophylaxis Pain control Will continue to follow MWF for now. Code(s): M86.9 - OSTEOMYELITIS, UNSPECIFIED (2) Chronic osteomyelitis involving ankle and foot Current Visit: No Status: Acute (3) Diabetic foot ulcer Current Visit: No Status: Acute Code(s): E11.621 - TYPE 2 DIABETES MELLITUS WITH FOOT ULCER; L97.509 - NON-PRESSURE CHRONIC ULCER OTH PRT UNSP FOOT W UNSP SEVERITY (4) Cellulitis of right foot Current Visit: No Status: Acute Code(s): L03.115 - CELLULITIS OF RIGHT LOWER LIMB
[2022-08-11] MEDS: Ecotrin 325 MG PO SCH (08:34)
[2022-08-11] MEDS ORDERED: PROVENTIL 2.5 MG/3 ML NEB IH ONE (08:57)
[2022-08-11] MEDS ORDERED: PROVENTIL 2.5 MG/3 ML NEB IH PRN (09:13)
[2022-08-11] MEDS ORDERED: Coumadin 3 MG PO SCH (18:00)
[2022-08-11] MEDS: Glucophage 500 MG PO SCH (18:07)
[2022-08-11] MEDS: Flomax 0.4 MG PO SCH (18:07)
[2022-08-11] MEDS: Prozac 20 MG PO SCH (18:07)
[2022-08-11] MEDS: SODIUM BICARBONATE PO SCH (18:08)
[2022-08-11] MEDS: Proscar 5 MG PO SCH (18:08)
[2022-08-11] MEDS: VANCOMYCIN 1 GRAM/200 ML BAG 1 GM/200 ML PIGGYBACK IV SCH (21:26)
[2022-08-11 23:30] LABS: Creatinine 1 3.26 mg/dL (0.66-1.25); EST GLOMERULAR FILTRATION RATE 19.3 ML/MIN
[2022-08-12] MEDS: Piperacillin/Tazobactam 2.25 GM 2.25 GM in Sodium Chloride 100ML MINI-BAG PLUS 100 ML IV SCH ×3 (06:29→22:33)
[2022-08-12 06:37] LABS: INR 1.69 (0.8-3.0); PROTIME 17.1 SECONDS (9.4-12.5)
[2022-08-12] MEDS: Ecotrin 325 MG PO SCH (11:01)
[2022-08-12 15:55] LABS: Hematocrit 30.9 % (42-50); Hemoglobin 9.2 g/dL (12.5-18.0); Mean Cell Volume 104.7 fL (78-100); Mean Corpuscular Hemoglobin 31.2 pg (26-32); Mean Corpuscular Hgb Concent. 29.8 g/dL (32-36); Mean Platelet Volume 9.7 fL (7.5-11.0); Platelet Count 270 x10^3/uL (150-450); Red Blood Count 2.95 x10^6/uL (4.1-5.6); Red Cell Distribution Width 12.7 % (11.5-14.0); White Blood Count 8.6 x10^3/uL (4.0-10.5)
[2022-08-12 16:12] LABS: A-aADO2 132; ABG HEMOGLOBIN 10.8; ABG POTASSIUM 4.3 (3.5-5.1); ABG SITE RIGHT BRACHIAL; ARTERIAL BLD GAS O2 SATURATION 87.1 % (95-100); ARTERIAL BLOOD GAS BASE EXCESS -9.3 (-2.0-2.0); ARTERIAL BLOOD GAS FIO2 32 %; ARTERIAL BLOOD GAS PCO2 33 mmHg (35-45); ARTERIAL BLOOD GAS PO2 55 mmHg (75-100); CARBOXYHEMOGLOBIN 1.2 % THgb (0.0-6.9); HCO3- 16.2 (22-28); HGB O2 SAT 85.6 g/dF (94-100); Methhemoglobin 0.4 % (1.4-1.5); paO2 pAO1 0.29
[2022-08-12 16:16] LABS: ALBUMIN 3.1 g/dL (3.5-5.0); BILIRUBIN,TOTAL 0.3 mg/dL (0.2-1.3); Calcium 8.4 mg/dL (8.4-10.2); Creatinine 1 3.99 mg/dL (0.66-1.25); EST GLOMERULAR FILTRATION RATE 15.3 ML/MIN; Potassium 4.3 mmol/L (3.5-5.1); Total Protein 5.9 g/dL (6.3-8.2)
--- NOTE | 2022-08-12 16:30 | XRAY ---
Indication: Dyspnea on exertion. Comparison: September 18, 2021 Portable chest less inflated again with mild bibasilar pleural effusions/pleural thickening. Increasing bibasilar subsegmental atelectasis/scarring. 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 Bony thorax intact again with osteopenia, degenerative changes, and remote L1 compression fracture. Limited upper abdomen demonstrates new partially incompletely visualized bilateral renal stents. Impression: Continued nonacute chest with chronic features.
[2022-08-12] MEDS ORDERED: Lasix 20 MG/2 ML IV ONE (17:30)
[2022-08-12] MEDS: Prozac 20 MG PO SCH (17:32)
[2022-08-12] MEDS: Glucophage 500 MG PO SCH (17:32)
[2022-08-12] MEDS: Flomax 0.4 MG PO SCH (17:32)
[2022-08-12] MEDS: Proscar 5 MG PO SCH (17:34)
[2022-08-12] MEDS: SODIUM BICARBONATE PO SCH (17:40)
[2022-08-12] MEDS: Sodium Chloride 0.9% 1000 ML 1,000 ML IV SCH (17:41)
[2022-08-12] MEDS: Coumadin 3 MG PO SCH (17:49)
[2022-08-13] MEDS: Piperacillin/Tazobactam 2.25 GM 2.25 GM in Sodium Chloride 100ML MINI-BAG PLUS 100 ML IV SCH ×3 (05:23→21:20)
[2022-08-13 07:25] LABS: INR 2.38 (0.8-3.0); PROTIME 23.3 SECONDS (9.4-12.5)
--- NOTE | 2022-08-13 08:27 | PCM.NOTE ---
Date and Time: 08/13/22 08 Subjective Assessment: Progressing without complication. Dyspnea on exertion. No other complaints. Physical Exam - Narrative Narrative Physical Exam: Podiatry Physical Exam OBJECTIVE DATA Vital Signs: Vital Signs - 24 hr Temp Pulse Resp BP Pulse Ox 08/13/22 07:52 96.9 F 102 H 17 132/80 95 08/12/22 20:00 98.4 F 82 20 167/67 99 08/12/22 18:36 98 H 20 95 08/12/22 14:00 95 H 20 95 Pain Assessment - Last Documented Pain Intensity 0 Pain Scale Used 0-10 Pain Scale Intake and Output: Intake & Output 08/10/22 08/11/22 08/12/22 08/13/22 11:59 11:59 11:59 11:59 Intake Total 185 1965 1225 1543 Balance 185 1965 1225 1543 Weight 75.1 kg 76 kg 76 kg Lab Results: Lab Results-Last 24 Hours 08/12/22 08/12/22 08/12/22 Range/Units 04:18 15:38 15:54 WBC 8.6 (4.0-10.5) x10^3/uL RBC 2.95 L (4.1-5.6) x10^6/uL Hgb 9.2 L (12.5-18.0) g/dL Hct 30.9 L (42-50) % MCV 104.7 H (78-100) fL MCH 31.2 (26-32) pg MCHC 29.8 L (32-36) g/dL RDW 12.7 (11.5-14.0) % Plt Count 270 (150-450) x10^3/uL MPV 9.7 (7.5-11.0) fL PT 17.1 H (9.4-12.5) SECONDS INR 1.69 (0.8-3.0) Puncture Site RIGHT BRACHIAL pCO2 33 L (35-45) mmHg pO2 55 L (75-100) mmHg Base Excess -9.3 L (-2.0-2.0) O2 Saturation 85.6 L (94-100) g/dF ABG pH 7.30 L (7.35-7.45) ABG HCO3 16.2 L* (22-28) ABG O2 Sat (Measured) 87.1 L (95-100) % Nickolas Test NOT APPLICABLE A-a Gradient 132 a/A Ratio 0.29 Hemoglobin 10.8 Carboxyhemoglobin 1.2 (0.0-6.9) % THgb Methemoglobin 0.4 L (1.4-1.5) % Potassium 4.3 (3.5-5.1) Temperature 37.0 C POC O2 Flow Rate 32 % Sodium (137-145) mmol/L Chloride (98-107) mmol/L Carbon Dioxide (22-30) mmol/L Anion Gap (5-15) MEQ/L BUN (9-20) mg/dL Creatinine (0.66-1.25) mg/dL Estimated GFR ML/MIN Glucose (74-106) mg/dL Calcium (8.4-10.2) mg/dL Total Bilirubin (0.2-1.3) mg/dL AST (17-59) U/L ALT (0-50) U/L Alkaline Phosphatase (38-126) U/L NT-Pro-B Natriuret Pep (0-1800) pg/mL Serum Total Protein (6.3-8.2) g/dL Albumin (3.5-5.0) g/dL 08/12/22 08/13/22 Range/Units 15:54 04:36 WBC (4.0-10.5) x10^3/uL RBC (4.1-5.6) x10^6/uL Hgb (12.5-18.0) g/dL Hct (42-50) % MCV (78-100) fL MCH (26-32) pg MCHC (32-36) g/dL RDW (11.5-14.0) % Plt Count (150-450) x10^3/uL MPV (7.5-11.0) fL PT 23.3 H (9.4-12.5) SECONDS INR 2.38 D (0.8-3.0) Puncture Site pCO2 (35-45) mmHg pO2 (75-100) mmHg Base Excess (-2.0-2.0) O2 Saturation (94-100) g/dF ABG pH (7.35-7.45) ABG HCO3 (22-28) ABG O2 Sat (Measured) (95-100) % Nickolas Test A-a Gradient a/A Ratio Hemoglobin Carboxyhemoglobin (0.0-6.9) % THgb Methemoglobin (1.4-1.5) % Potassium 4.3 (3.5-5.1) Temperature C POC O2 Flow Rate % Sodium 142 (137-145) mmol/L Chloride 114 H (98-107) mmol/L Carbon Dioxide 18 L (22-30) mmol/L Anion Gap 14.0 (5-15) MEQ/L BUN 42 H (9-20) mg/dL Creatinine 3.99 H (0.66-1.25) mg/dL Estimated GFR 15.3 ML/MIN Glucose 205 H (74-106) mg/dL Calcium 8.4 (8.4-10.2) mg/dL Total Bilirubin 0.30 (0.2-1.3) mg/dL AST 27 (17-59) U/L ALT 16 (0-50) U/L Alkaline Phosphatase 72 (38-126) U/L NT-Pro-B Natriuret Pep 6720 H (0-1800) pg/mL Serum Total Protein 5.9 L (6.3-8.2) g/dL Albumin 3.1 L (3.5-5.0) g/dL Radiology Exams: Radiology Procedures Category Date Time Status CHEST 1 VIEW (PORTABLE) Routine Exams 08/13/22 08:00 Taken CHEST 1 VIEW (PORTABLE) Urgent Exams 08/12/22 15:36 Completed Multi-Disciplinary Progress Notes: Multi-Disciplinary Progress Notes 08/12/22 20:20 Physical Therapy Note by Concetta(Rad#[id number]),Barbie PT. FEELING SLIGHTLY BETTER OVERALL TODAY. CONT. W 2L O2 D/T SOB. IN AM PT. PERFORMED LE EX'S IN SUPINE OF ANKLE PUMPS, HEEL SLIDES, SLRS, ABD SLIDES X 10 REPS. W/ V.C. FOR PROPER BREATHING IN BETWEEN EX'S. PT. DID NOT WANT TO GET UP IN A.M. HE WAS FATIGUED. PT. TRANSFERRED TO BEDSIDE CHAIR W/ ASSIST OF NSG FOR LUNCH AND SAT UP FOR ~ 2 HOURS. ASSISTED PT. W/ TRANSFER FROM CHAIR BACK TO BED W/ MIN-MOD ASSIST. ADVISED PT. TO USE ROLLATOR TO ASSIST W/ TRANSFER AND HE REFUSED. PT. REPORTED "HE COULD JUST PIVOT ON HIS L LE" TO GET BACK TO BED. PT. ALSO REPORTED DR. HICKMAN INCREASED HIS WB STATUS R LE. ON WAY FROM CHAIR TO BED, PT. SAT ON ARM OF CHAIR WHICH WAS NOT A SAFE MANEUVER AND REQUIRED MIN-MOD ASSIST TO MOVE FROM ARM OF CHAIR TO BED. PT. HAS SOME DIFFICULTY W/ SAFETY AWARENESS AT TIMES AND DIFFICULTY NOTED W/ HIS FOLLOWING SAFETY CUES OF P.T. WILL CONT. W/ P.T. APPROPRIATE DURING STAY. Initialized on 08/12/22 20:20 - END OF NOTE Assessment/Plan (1) Osteomyelitis Current Visit: No Status: Acute Assessment & Plan: Progressing without complication Patient examination and evaluation Dressing changed revealing improving appearance overall of incision. some mild maceration of wound distally. Continue weight bearing protocol for now Continue ABX protocol for now. Awaiting send out culture and sensitivity. Bone pathology awaiting, awaiting clean margins. Continue Dvt prophylaxis Pain control Will continue to follow MWF for now. Code(s): M86.9 - OSTEOMYELITIS, UNSPECIFIED (2) Chronic osteomyelitis involving ankle and foot Current Visit: No Status: Acute (3) Diabetic foot ulcer Current Visit: No Status: Acute Code(s): E11.621 - TYPE 2 DIABETES MELLITUS WITH FOOT ULCER; L97.509 - NON-PRESSURE CHRONIC ULCER OTH PRT UNSP FOOT W UNSP SEVERITY (4) Cellulitis of right foot Current Visit: No Status: Acute Code(s): L03.115 - CELLULITIS OF RIGHT LOWER LIMB
--- NOTE | 2022-08-13 09:03 | XRAY ---
Indication: Worsening short of breath. Comparison: August 12, 2022 Portable chest remains underinflated with new inferior left upper lobe/diffuse patchy right lung groundglass airspace disease and new small bibasilar effusions. Heart now enlarged either due to underinflation versus cardiac decompensation/CHF. Stable CABG, left pacemaker, osteopenia, and bony degenerative changes.
[2022-08-13] MEDS: Ecotrin 325 MG PO SCH (10:47)
[2022-08-13] MEDS: VANCOMYCIN 1 GRAM/200 ML BAG 1 GM/200 ML PIGGYBACK IV SCH (10:48)
[2022-08-13] MEDS: Sodium Chloride 0.9% 1000 ML 1,000 ML IV SCH (12:35)
[2022-08-13] MEDS: Glucophage 500 MG PO SCH (17:11)
[2022-08-13] MEDS: Flomax 0.4 MG PO SCH (17:11)
[2022-08-13] MEDS: Coumadin 3 MG PO SCH (17:11)
[2022-08-13] MEDS: Prozac 20 MG PO SCH (17:11)
[2022-08-13] MEDS: Proscar 5 MG PO SCH (17:12)
[2022-08-13] MEDS: SODIUM BICARBONATE PO SCH (17:12)
[2022-08-13 21:02] VITALS: BP 121/59; PULSE 91; O2SAT 98
--- NOTE | 2022-08-14 08:47 | XRAY ---
Indication: Short of breath. Multiple contiguous axial images obtained through the chest without contrast. Comparison: November 16, 2013 Lungs again hyperinflated with small bibasilar effusions less than before. There remains mild/moderate bibasilar and inferior left upper lobe subsegmental atelectasis. Superior segment right lower lobe demonstrates new 2.5 x 3.5 x 2.1 cm noncalcified mass. New moderate bilateral upper lobe subpleural cystic changes. Heart is now enlarged again with CABG surgery. New left dual-lead pacemaker. Aorta again mildly arteriosclerotic without aneurysm. Stable 1.5 cm right infrahilar prominent lymph node. New right subcarinal enlarged lymph node measuring at least 2.1 x 1.8 cm. New small hiatal hernia. Bony thorax intact again with osteopenia and flowing osteophytes throughout the spine. Limited upper abdomen demonstrates new diffuse hepatic hypodense lesions favoring metastasis. Also new incompletely visualized moderate ascites. Impression: 1. Small bilateral effusions with new cardiomegaly. Rule out cardiac decompensation/CHF versus fluid overload. 2. New right lower lobe noncalcified mass worrisome for primary versus metastatic malignancy. 3. New prominent subcarinal lymph node and new diffuse hepatic hypodense lesions concerning for additional metastasis. 4. Again bibasilar and inferior left upper lobe subsegmental atelectasis. 5. New small hiatal hernia and new incompletely visualized abdominal ascites.
[2022-08-14] MEDS ORDERED: DAPTOmycin 500 MG in Sodium Chloride Flush 30 ML*** 10 ML IV SCH (10:00)
[2022-08-14] MEDS ORDERED: TROUGH DRUG LEVELS IJ ONE (21:30)
[2022-08-19] MEDS ORDERED: Aplisol ID SCH (10:00)
--- NOTE | 2022-08-25 12:33 | PCM.DS ---
Discharge Summary Date of Admission: 08/07/22 14:00 Date of Discharge: 08/13/2022 Admitting Physician: JOHN SONI Consults: Consults on Case 08/12/22 17:06 Consult Nephrology ROUTINE Primary Care Provider: JOHN SONI Allergies Allergies No Known Drug Allergies Allergy (Verified 08/04/22 10:56) Hospital Summary - Hospital Course Hospital Course: Pt. continued on iv antibiotics, foot continues to do well, but patient began having more sob. Upon further evaluation the patients kidney function has declined and he has developed a moderate pleural effusion with chf. Pt. is in urgent need of dialysis as he was unable to be diuresed with diuretics. Discussed case with his orthophotography technician and the patient will be d/c'd to [facility] for dialysis and further management. - Vitals & Intake/Output Vital Signs: Vital Signs Temperature 97.8 F 08/13/22 20:00 Pulse Rate 91 H 08/13/22 20:00 Respiratory Rate 26 H 08/13/22 20:00 Blood Pressure 121/59 08/13/22 20:00 O2 Sat by Pulse Oximetry 98 08/13/22 20:00 - Lab Result Diagrams: 08/12/22 15:54 08/12/22 15:54 - Procedures and Test Procedures and Tests throughout Hospitalization: Therapy Orders & Screens 08/07/22 14:47 OT Eval and Treat ( Order) ONCE Comment: Consulting Provider: Physician Instructions: Reason For Exam: OSTEOMYLITIS RIGHT FOOT Evaluate: Yes Treat: Yes Reason for Evaluation: OSTEOMYLITIS RIGHT FOOT Diagnosis: OSTEOMYLITIS RIGHT FOOT PT Eval & Treat (MD Order) ONCE Reason for Eval:: NWB RIGHT FOOT Diagnosis: OSTEOMYELITIS R FOOT PT Gait Training ONCE Comment: Physician Instructions: Reason For Exam: Osteomyelitis right foot 08/10/22 11:54 PT Clarification Order ROUTINE Comment: Physician Instructions: Reason For Exam: PT Clarification: PT TO TREAT 5/WEEK FOR LENGTH OF STAY TO ADDRESS STRENGTH AND BALANCE DEFICITS AND TO WORK ON INDEPENDENCE WITH TRANSFERS WITH R NWB ON THE L LE. WILL MAXIMIZE FUNCTIONAL POTENTIAL TO D/C TO HOME. 08/11/22 09:13 Oxygen NASAL CANNULA 3 lpm Comment: Diagnosis: OSTEOMYELITIS R FOOT 08/12/22 07:00 Respiratory Therapy Assessment DAILY Comment: Diagnosis: OSTEOMYELITIS R FOOT Discharge Exam General Appearance: no apparent distress, mild distress, alert Neurologic Exam: alert, oriented x 3, cooperative, normal mood/affect, nml cerebellar function, sensation nml, No motor deficits Eye Exam: PERRL, EOMI, eyes nml inspection Ears, Nose, Throat Exam: normal ENT inspection, pharynx normal, moist mucous membranes Neck Exam: normal inspection, non-tender, supple, full range of motion Respiratory Exam: diminished breath sounds, prolonged expirations, crackles/rales, rhonchi, No respiratory distress Cardiovascular Exam: regular rate/rhythm, normal heart sounds Gastrointestinal/Abdomen Exam: soft, No tenderness, No mass Male Genitalia Exam: deferred Rectal Exam: deferred Back Exam: normal inspection, normal range of motion, No CVA tenderness, No vertebral tenderness Extremity Exam: normal inspection, normal range of motion Skin Exam: normal color, warm, dry Final Diagnosis/Problem List - Final Discharge Diagnosis/Problem (1) Pleural effusion Status: Acute Code(s): J90 - PLEURAL EFFUSION, NOT ELSEWHERE CLASSIFIED (2) Acute on chronic renal failure Status: Acute Code(s): N17.9 - ACUTE KIDNEY FAILURE, UNSPECIFIED; N18.9 - CHRONIC KIDNEY DISEASE, UNSPECIFIED (3) Acute renal injury Status: Acute Code(s): N17.9 - ACUTE KIDNEY FAILURE, UNSPECIFIED (4) CHF (congestive heart failure) Status: Acute Code(s): I50.9 - HEART FAILURE, UNSPECIFIED (5) Chronic osteomyelitis involving ankle and foot Status: Acute (6) Dyspnea Status: Acute Code(s): R06.00 - DYSPNEA, UNSPECIFIED (7) Renal failure Status: Acute - Discharge Discharge Date: 08/13/22 [facility]position[facility] Condition: Stable Prescriptions: No Action quiNINE sulfate [Quinine Sulfate] 300 mg PO EVENING MEAL PRN PRN Reason: Leg Cramps Fluoxetine HCl 20 mg [Prozac 20 MG] 20 mg PO DAILY #30 cap Tamsulosin HCl 0.8 mg PO DAILY Finasteride 5 mg PO EVENING MEAL Metformin HCl 500 mg [Glucophage 500 MG] 500 mg PO DAILY Glipizide 2.5 mg [Glucotrol Xl 2.5 MG] 5 mg PO DAILY PRN PRN Reason: Hyperglycemia Cyanocobalamin (Vitamin B-12) [Cyanocobalamin Injection] 1,000 mcg IJ Q30D Warfarin Sodium 3 mg PO DAILY Sodium Bicarbonate 650 mg PO DAILY Follow up with: JOHN SONI MD [Primary Care Provider] - Forms: Ambulance Transport Record, Transfer Record Inter-Agency
[2022-08-28] MEDS ORDERED: Cyanocobalamin B-12 1000 MCG/ML IJ SCH (10:00)
== END 2022-08-13 23:10 | disposition short-term general hospital (02) | DRG 187 ==
LOC: MED SURG 14:00
PROVIDERS: ADMIT Family Medicine; ATTEND Family Medicine
DX: J90 Pleural effusion, not elsewhere classified (principal); L03.115 Cellulitis of right lower limb; N17.9 Acute kidney failure, unspecified; M86.671 Other chronic osteomyelitis, right ankle and foot; I50.9 Heart failure, unspecified; R06.00 Dyspnea, unspecified; E11.621 Type 2 diabetes mellitus with foot ulcer; Z79.899 Other long term (current) drug therapy; Z20.828 Contact with and (suspected) exposure to other viral communicable diseases
CPT/HCPCS: 36415; 36600; 71045; 71250; 80053; 80202; 82375; 82565; 82803; 82947; 83880; 85027; 85610; 94640; 94760; 99024; J1940; J2543; J7609; 97110-GP; A9270-GY; J3370